=== PATIENT | male | born 2000 | race African-American/Black ===

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

== ENCOUNTER 2021-01-12 08:54 | Emergency (ER) | payer OTHER ==
[2021-01-12] MEDS ORDERED: KETOROLAC 30 MG/ML INJ ONE (10:24)
--- NOTE | 2021-01-12 12:40 | ER ---
Nurse's Notes [facility] Name: Antelmo Vaughn Age: 20 yrs Sex: Male : 2000 Arrival Date: 01/12/2021 Time: 09:00 Bed 17 Private MD: Diagnosis: SARS-associated coronavirus as the cause of diseases classified elsewhere Presentation: 01/12 09:13 Chief complaint: Patient states: headache, nausea, chills, and slight cough. aa5 Coronavirus screen: chills, cough unrelated to allergies, headache. Ebola Screen: Patient negative for fever greater than or equal to 101.5 degrees Fahrenheit, and additional compatible Ebola Virus Disease symptoms. Initial Sepsis Screen: Does the patient meet any 2 criteria? No. Patient's initial sepsis screen is negative. Does the patient have a suspected source of infection? No. Patient's initial sepsis screen is negative. Risk Assessment: Do you want to hurt yourself or someone else? Patient reports no desire to harm self or others. Onset of symptoms was December 2020. 09:13 Acuity: RICKEY 4 aa5 09:13 Method Of Arrival: Ambulatory aa5 Historical: - Allergies: 09:13 No Known Allergies; aa5 - PMHx: 09:13 None; aa5 - PSHx: 09:13 Cholecystectomy; aa5 - Immunization history:: Client reports having NOT received the Covid vaccine. - Social history:: Smoking status: Patient denies any tobacco usage or history of. Screenin:30 Abuse screen: Denies threats or abuse. Denies injuries from another. Nutritional ch5 screening: No deficits noted. Tuberculosis screening: No symptoms or risk factors identified. Fall Risk None identified. Assessment: 11:30 Reassessment: No changes from previously documented assessment. Pain:. ch5 Vital Signs: 09:13 BP 122 / 70; Pulse 80; Resp 18 S; Temp 97.7(TE); Pulse Ox 97% on R/A; Weight 158.76 kg aa5 (R); Height 6 ft. 5 in. (195.58 cm) (R); 13:03 BP 132 / 82; Pulse 80; Resp 18; Pulse Ox 98% ; ch5 09:13 Body Mass Index 41.50 (158.76 kg, 195.58 cm) aa5 ED Course: 09:00 Patient arrived in ED. mr 09:13 Arm band placed on. aa5 09:15 Triage completed. aa5 :25 Jacob Hurtado PA is PHCP. jr8 :25 Cydney Weiner MD is Attending Physician. jr 09:30 Vishnu Alaniz, RN is Primary Nurse. ch5 10:13 Flu Sent. ch5 10:13 COVID-19 (Coronavirus) Document "Date of Onset" if Symptomatic Sent. ch5 11:30 No provider procedures requiring assistance completed. Patient did not have IV access ch5 during this emergency room visit. Administered Medications: 10:12 Drug: Ketorolac 30 mg Route: IM; Site: right deltoid; ch5 Outcome: 11:30 Discharged to home ch5 11:30 Condition: stable 11:30 Discharge instructions given to patient, Prescriptions given X 1. 12:39 Discharge ordered by . jr8 13:05 Patient left the ED. 5 Signatures: PalacioZelda cabrera mr SorensenConnie RN RN 5 Jacob Hurtado PA PA jr Vishnu Alaniz, CHOCO RN 5 Corrections: (The following items were deleted from the chart) 09:13 09:13 PSHx: None; 5 aa5
--- NOTE | 2021-01-12 12:40 | EDPHYS ---
Physician Documentation [facility] Name: Antelmo Vaughn Age: 20 yrs Sex: Male : 2000 Arrival Date: 01/12/2021 Time: 09:00 Bed 17 Private MD: ED Physician Cydney Weiner HPI: 01/12 10:36 This 20 yrs old Black Male presents to ER via Ambulatory with complaints of Headache, jr8 Nausea. 10:36 The patient has not experienced similar symptoms in the past. The patient has not jr8 recently seen a physician. This is a 20-year-old male patient that came in with couple day history of headache, cough, nausea, myalgias. Denies fevers or recent sick contacts that he knows of. Historical: - Allergies: 09:13 No Known Allergies; aa5 - PMHx: 09:13 None; aa5 - PSHx: 09:13 Cholecystectomy; aa5 - Immunization history:: Client reports having NOT received the Covid vaccine. - Social history:: Smoking status: Patient denies any tobacco usage or history of. ROS: 10:36 Eyes: Negative for injury, pain, redness, and discharge, ENT: Negative for injury, jr8 pain, and discharge, Neck: Negative for injury, pain, and swelling, Cardiovascular: Negative for chest pain, palpitations, and edema, Back: Negative for injury and pain, MS/Extremity: Negative for injury and deformity, Skin: Negative for injury, rash, and discoloration. 10:36 Constitutional: Positive for body aches, chills. 10:36 Respiratory: Positive for cough, Negative for shortness of breath, sputum production, wheezing. 10:36 Abdomen/GI: Positive for nausea, Negative for abdominal pain, vomiting, diarrhea. 10:36 Neuro: Positive for headache. Exam: 10:36 Constitutional: This is a well developed, well nourished patient who is awake, alert, jr8 and in no acute distress. Eyes: Pupils equal round and reactive to light, extra-ocular motions intact. Lids and lashes normal. Conjunctiva and sclera are non-icteric and not injected. Cornea within normal limits. Periorbital areas with no swelling, redness, or edema. ENT: Nares patent. No nasal discharge, no septal abnormalities noted. Tympanic membranes are normal and external auditory canals are clear. Oropharynx with no redness, swelling, or masses, exudates, or evidence of obstruction, uvula midline. Mucous membranes moist. Neck: Trachea midline, no thyromegaly or masses palpated, and no cervical lymphadenopathy. Supple, full range of motion without nuchal rigidity, or vertebral point tenderness. No Meningismus. Cardiovascular: Regular rate and rhythm with a normal S1 and S2. No gallops, murmurs, or rubs. Normal PMI, no JVD. No pulse deficits. Respiratory: Lungs have equal breath sounds bilaterally, clear to auscultation and percussion. No rales, rhonchi or wheezes noted. No increased work of breathing, no retractions or nasal flaring. Abdomen/GI: Soft, non-tender, with normal bowel sounds. No distension or tympany. No guarding or rebound. No evidence of tenderness throughout. Back: No spinal tenderness. No costovertebral tenderness. Full range of motion. Skin: Warm, dry with normal turgor. Normal color with no rashes, no lesions, and no evidence of cellulitis. MS/ Extremity: Pulses equal, no cyanosis. Neurovascular intact. Full, normal range of motion. Neuro: Awake and alert, GCS 15, oriented to person, place, time, and situation. Cranial nerves II-XII grossly intact. Motor strength 5/5 in all extremities. Sensory grossly intact. Vital Signs: 09:13 BP 122 / 70; Pulse 80; Resp 18 S; Temp 97.7(TE); Pulse Ox 97% on R/A; Weight 158.76 kg aa5 (R); Height 6 ft. 5 in. (195.58 cm) (R); 13:03 BP 132 / 82; Pulse 80; Resp 18; Pulse Ox 98% ; ch5 09:13 Body Mass Index 41.50 (158.76 kg, 195.58 cm) aa5 MDM: 09:25 Patient medically screened. [facility] 12:38 Data reviewed: vital signs, nurses notes, lab test result(s), and as a result, I will [facility] discharge patient. Data interpreted: Pulse oximetry: on room air is 97 %. Interpretation: normal. Counseling: I had a detailed discussion with the patient and/or guardian regarding: the historical points, exam findings, and any diagnostic results supporting the discharge/admit diagnosis, lab results, the need for outpatient follow up, a family practitioner, to return to the emergency department if symptoms worsen or persist or if there are any questions or concerns that arise at home. ED course: Discussed with patient that he is Covid positive. Overall patient is doing very well. Hemodynamically stable and afebrile at this time. Will send home on nausea medicine. Treat symptomatically otherwise with [id number] medicines and to watch his respiratory drive and for increased shortness of breath. If any of that were to occur to come back for further evaluation. Patient understood and good with plan at this time.. 01/12 09:48 Order name: COVID-19 (Coronavirus) Document "Date of Onset" if Symptomatic jr8 01/12 09:48 Order name: Flu jr8 01/12 09:49 Order name: Influenza Screen (A ; Complete Time: 10:59 EDMS 01/12 11:27 Order name: SARS-COV-2 RT PCR; Complete Time: 12:40 EDMS Administered Medications: 10:12 Drug: Ketorolac 30 mg Route: IM; Site: right deltoid; ch5 Disposition Summary: 01/12/21 12:39 Discharge Ordered Location: Home jr8 Problem: new jr8 Symptoms: have improved jr8 Condition: Stable jr8 Diagnosis - SARS-associated coronavirus as the cause of diseases classified elsewhere jr8 Followup: jr8 - With: Private Physician - When: 7 - 10 days - Reason: Recheck today's complaints, Continuance of care, Re-evaluation by your physician Discharge Instructions: - Discharge Summary Sheet jr8 - COVID-19 jr8 Forms: - Medication Reconciliation Form jr8 - Thank You Letter jr8 - Antibiotic Education jr8 - Prescription Opioid Use jr8 Prescriptions: - Zofran 4 mg Oral Tablet - take 1 tablet by ORAL route every 12 hours As needed; 20 tablet; Refills: 0, jr8 Product Selection Permitted Addendum: 01/13/2021 14:20 Co-signature as Attending Physician, Cydney Weiner MD I agree with the assessment and s p3 plan of care. Signatures: Dispatcher [employer] EDMS Connie Sorensen RN RN aa5 Jacob Hurtado PA PA jr8 Cydney Weiner MD MD sp3 Vishnu Alaniz RN RN ch5 Corrections: (The following items were deleted from the chart) 01/12 09:13 09:13 PSHx: None; aa5 aa5 11 09:49 CORONAVIRUS ordered. EDMS EDMS
[2021-01-12 13:24] VITALS: TEMP 97.7
[2021-01-12 13:25] VITALS: BP 132/82; O2SAT 98
== END 2021-01-12 13:05 | disposition home or self-care (01) ==
LOC: ER 08:54
DX: U07.1 COVID-19 (principal)
CPT/HCPCS: 87804 ×2; 96372; 99283; U0003

== ENCOUNTER 2021-01-17 18:51 | Emergency (ER) | payer OTHER ==
[2021-01-17 19:36] LABS: Absolute Lymphocytes (CBC) 0.9 K/uL (0.7-4.9); Basophils % 0.5 % (0-1.3); Hematocrit 44.4 % (39.6-49.0); MPV 7.8 fL (7.6-11.3); RBC Red Blood Cell Count 5.23 M/uL (4.33-5.43)
[2021-01-17] MEDS ORDERED: ACETAMINOPHEN 500 MG TAB ONE (19:40)
[2021-01-17] MEDS ORDERED: NA CHLORIDE 0.9% 1,000 ML ONE (19:41)
[2021-01-17] MEDS ORDERED: ONDANSETRON 4 MG/2 ML VIAL ONE (19:41)
--- NOTE | 2021-01-17 19:48 | RAD REPORT ---
EXAM DESCRIPTION: RAD - Chest Single View - 01/17/2021 7:17 pm CLINICAL HISTORY: Cough;Chest pain;Dyspnea COMPARISON: CHEST PA AND LAT 2 VIEW dated 10/02/2013; CHEST PA AND LAT 2 VIEW dated 2000 FINDINGS: Lines: None. Lungs: Mild patchy bilateral airspace disease. Pleural: No significant pleural effusions or pneumothorax. Cardiac: Cardiomegaly Bones: No acute fractures. Other: IMPRESSION: Mild patchy bilateral airspace disease may reflect multifocal pneumonia.
[2021-01-17 19:49] LABS: Protime INR 1.33
[2021-01-17 20:37] LABS: ALT/SGPT 49 U/L (12-78); AST/SGOT 53 U/L (15-37); Albumin 3.2 g/dL (3.4-5.0); Alkaline Phosphatase 58 U/L (45-117); BUN Blood Urea Nitrogen 9 mg/dL (7-18); Bicarbonate 26 mmol/L (21-32); Bilirubin Direct 0.1 mg/dL (0-0.2); Bilirubin Total 0.4 mg/dL (0.2-1.0); C-Reactive Protein 9.97 mg/L (<3.00); Glucose Level 131 mg/dL (74-106); Lipase 16 U/L (73-393); Potassium 3.4 mmol/L (3.5-5.1); Protein, Total 7.7 g/dL (6.4-8.2); Sodium Level 136 mmol/L (136-145); Troponin (Emerg Dept Use Only) < 0.02 ng/mL (0.0-0.045)
--- NOTE | 2021-01-17 20:46 | EDPHYS ---
Physician Documentation [facility] Name: Antelmo Vaughn Age: 20 yrs Sex: Male : 2000 Arrival Date: 01/17/2021 Time: 18:52 Bed 24 Private MD: ED Physician Akila Tay HPI: 01/17 19:45 This 20 yrs old Black Male presents to ER via EMS with complaints of covid +, shortness kb of breath. 19:45 The patient or guardian reports cough, that is intermittent, described as moderate, kb difficulty breathing. Onset: The symptoms/episode began/occurred 8 day(s) ago. Severity of symptoms: At their worst the symptoms were moderate, in the emergency department the symptoms are unchanged. Modifying factors: The symptoms are alleviated by nothing, the symptoms are aggravated by nothing. Associated signs and symptoms: Pertinent positives: fever, nausea, vomiting. The patient has not experienced similar symptoms in the past. The patient has not recently seen a physician. Historical: - Allergies: 18:59 No Known Allergies; ch5 - Immunization history:: Adult Immunizations unknown, Client reports having NOT received the Covid vaccine. - Social history:: Smoking status: Patient denies any tobacco usage or history of. ROS: 19:43 Cardiovascular: Negative for chest pain, palpitations, and edema. kb 19:43 Constitutional: Positive for body aches, chills, fatigue, fever, malaise. 19:43 Respiratory: Positive for cough, shortness of breath, Negative for 19:43 Abdomen/GI: Positive for nausea and vomiting, Negative for abdominal pain, diarrhea. 19:43 All other systems are negative. Exam: 19:43 Constitutional: This is a well developed, well nourished patient who is awake, alert, kb and in no acute distress. Head/Face: Normocephalic, atraumatic. ENT: Moist Mucous membranes Cardiovascular: Regular rate and rhythm with a normal S1 and S2. No gallops, murmurs, or rubs. No pulse deficits. Respiratory: Respirations even and unlabored. No increased work of breathing, no retractions or nasal flaring. Abdomen/GI: Soft, non-tender. No distention Skin: Warm, dry with normal turgor. Normal color. MS/ Extremity: Pulses equal, no cyanosis. Neurovascular intact. Full, normal range of motion. Neuro: Awake and alert, GCS 15, oriented to person, place, time, and situation. Moves all extremities. Normal gait. Psych: Awake, alert, with orientation to person, place and time. Behavior, mood, and affect are within normal limits. 19:47 ECG was reviewed by the Attending Physician. kb Vital Signs: 18:57 BP 130 / 70; Pulse 104; Resp 20; Temp 103.5; Pulse Ox 93% ; Weight 158.76 kg; Height 6 ch5 ft. 5 in. (195.58 cm); 19:02 BP 130 / 74; Pulse 95; Resp 20; Temp 103.5; Pulse Ox 96% ; ch5 20:00 BP 119 / 71; Pulse 92; Resp 20 S; Temp 100.4(O); Pulse Ox 92% on R/A; Pain 2/10; sj1 18:57 Body Mass Index 41.50 (158.76 kg, 195.58 cm) ch5 MDM: 18:53 Patient medically screened. kb 19:43 Data reviewed: vital signs, nurses notes. Data interpreted: Pulse oximetry: on room air kb is 96 %. Interpretation: normal. 19:46 ED course: Pt reports he was diagnosed with covid 8 days ago. Reports cough, kb congestion, fever, dyspnea, nausea and vomiting that got worse today. 20:45 Counseling: I had a detailed discussion with the patient and/or guardian regarding: the kb historical points, exam findings, and any diagnostic results supporting the discharge/admit diagnosis, lab results, radiology results, the need for outpatient follow up, a family practitioner, to return to the emergency department if symptoms worsen or persist or if there are any questions or concerns that arise at home. 01/17 19:02 Order name: BMP kb 01/17 19:02 Order name: C-Reactive Protein kb 01/17 19:02 Order name: CBC with Diff; Complete Time: 19:55 kb 01/17 19: Order name: D-Dimer; Complete Time: 19:59 kb 01/17 19:02 Order name: Ferritin kb 01/17 19:02 Order name: LFT's kb 01/17 19: Order name: Lactate; Complete Time: 20:04 kb 01/17 19:02 Order name: Lipase kb 01/17 19:02 Order name: PT-INR; Complete Time: 19:59 kb 01/17 19:02 Order name: Procalcitonin; Complete Time: 20:14 kb 01/17 19:02 Order name: Ptt, Activated; Complete Time: 19:59 kb 01/17 19:02 Order name: Troponin (emerg Dept Use Only) kb 01/17 19:02 Order name: CXR XRAY; Complete Time: 19:55 kb 01/17 19:02 Order name: EKG; Complete Time: 19:03 kb 01/17 19:02 Order name: Cardiac monitoring; Complete Time: 19:30 kb 01/17 19:02 Order name: Droplet/Contact Precautions; Complete Time: 19:30 kb 01/17 19:02 Order name: EKG - Nurse/Tech; Complete Time: 19:46 kb 01/17 19:02 Order name: IV Start; Complete Time: 19:30 kb 01/17 19:02 Order name: Labs collected and sent; Complete Time: 19:30 kb 01/17 19:02 Order name: O2 Per Protocol; Complete Time: 19:30 kb 01/17 19:02 Order name: O2 Sat Monitoring; Complete Time: 19:30 kb 01/17 20:15 Order name: PO challenge; Complete Time: 20:40 kb EC:47 Rate is 92 beats/min. Rhythm is regular. QRS [place] is Normal. [place] interval is normal at kb 144 msec. QRS interval is normal at 94 msec. QT interval is normal at 334 msec. Administered Medications: 19:30 Drug: NS 0.9% 1000 ml Route: IV; Rate: 1000 ml; Site: right hand; sj1 20:16 Follow up: IV Intake: 1000ml sj1 20:16 Follow up: IV Status: Completed infusion sj1 19:30 Drug: Zofran (Ondansetron) 4 mg Route: IVP; Site: right hand; sj1 20:15 Follow up: Response: No adverse reaction sj1 19:30 Drug: Tylenol 1000 mg Route: PO; sj1 20:15 Follow up: Response: No adverse reaction; Nausea is decreased sj1 Disposition Summary: 01/17/21 20:45 Discharge Ordered Location: Home kb Condition: Stable kb Diagnosis - Coronavirus infection, unspecified kb Followup: kb - With: Emergency Department - When: As needed - Reason: Worsening of condition Followup: kb - With: Private Physician - When: 2 - 3 days - Reason: Recheck today's complaints, Continuance of care, Re-evaluation by your physician Discharge Instructions: - Discharge Summary Sheet kb - COVID-19 kb - COVID-19 Frequently Asked Questions kb - 10 Things You Can Do to Manage Your COVID-19 Symptoms at Home - [facility] kb Forms: - Medication Reconciliation Form kb - Thank You Letter kb - Antibiotic Education kb - Prescription Opioid Use kb Prescriptions: - Zofran 4 mg Oral Tablet - take 1 tablet by ORAL route every 6 hours As needed; 20 tablet; Refills: 0, kb Product Selection Permitted Addendum: 01/26/2021 22:56 Co-signature as Attending Physician, Akila Tay MD. m a2 Signatures: Dispatcher [employer] EDMS Lakeisha Rao, TERENCE-C [employer] TE[employer]ER-Akila Gonzales MD MD ma2 Vishnu Alaniz RN RN ch5 Mireille Bonds RN RN sj1 Corrections: (The following items were deleted from the chart) 01/17 19:01 18:59 PSHx: Cholecystectomy; ch5 ch5
--- NOTE | 2021-01-17 20:46 | ER ---
Nurse's Notes [facility] Name: Antelmo Vaughn Age: 20 yrs Sex: Male : 2000 Arrival Date: 01/17/2021 Time: 18:52 Bed 24 Private MD: Diagnosis: Coronavirus infection, unspecified Presentation: 01/17 18:57 Chief complaint: EMS states: N/V, cough and SOB since being diagnosed with COVID 7 days ch5 ago. Coronavirus screen: Vaccine status: Patient reports being unvaccinated. Client denies travel out of the [place] in the last 14 days. Ebola Screen: Patient negative for fever greater than or equal to 101.5 degrees Fahrenheit, and additional compatible Ebola Virus Disease symptoms Patient denies exposure to infectious person. Patient denies travel to an Ebola-affected area in the 21 days before illness onset. Initial Sepsis Screen: Does the patient meet any 2 criteria? Temp <36.0*C (96.8*F)) or > 38.3*C (100.9*F). HR > 90 bpm. Does the patient have a suspected source of infection? Yes: Productive cough/pneumonia. Risk Assessment: Do you want to hurt yourself or someone else? Patient reports no desire to harm self or others. 18:57 Method Of Arrival: EMS: [place] [address] 18:57 Acuity: RICKEY 3 5 20:49 Onset of symptoms was January 10, 2021. sj1 Triage Assessment: 18:59 General: Appears in no apparent distress. Behavior is cooperative. Pain: Denies pain. [facility] Historical: - Allergies: 18:59 No Known Allergies; [facility] - Immunization history:: Adult Immunizations unknown, Client reports having NOT received the Covid vaccine. - Social history:: Smoking status: Patient denies any tobacco usage or history of. Screenin:01 Abuse screen: Denies threats or abuse. Denies injuries from another. Abuse screen: [facility] Denies threats or abuse. Denies injuries from another. Nutritional screening: No deficits noted. Tuberculosis screening: No symptoms or risk factors identified. Fall Risk None identified. Assessment: 19:01 Reassessment: No changes from previously documented assessment. [facility] 19:02 Respiratory: Breath sounds are diminished bilaterally. jt3 19:02 General: Appears in no apparent distress. jt3 19:03 Reassessment: Lungs diminished bilaterally. Alert and oriented x4. Airway patent on jt3 arrival. Cough present. . 20:45 Neuro: Level of Consciousness is awake, alert, obeys commands, Oriented to person, sj1 place, time, situation. Cardiovascular: Rhythm is sinus rhythm. GI: Reports nausea. : No signs and/or symptoms were reported regarding the genitourinary system. EENT: No signs and/or symptoms were reported regarding the EENT system. Derm: No signs and/or symptoms reported regarding the dermatologic system. Musculoskeletal: Reports gen bodyaches. Vital Signs: 18:57 BP 130 / 70; Pulse 104; Resp 20; Temp 103.5; Pulse Ox 93% ; Weight 158.76 kg; Height 6 ch5 ft. 5 in. (195.58 cm); 19:02 BP 130 / 74; Pulse 95; Resp 20; Temp 103.5; Pulse Ox 96% ; ch5 20:00 BP 119 / 71; Pulse 92; Resp 20 S; Temp 100.4(O); Pulse Ox 92% on R/A; Pain 2/10; sj1 18:57 Body Mass Index 41.50 (158.76 kg, 195.58 cm) 5 ED Course: 18:52 Patient arrived in ED. 5 18:53 Lakeisha Rao FNP-C is [facility]. kb 18:53 Akila Tay MD is Attending Physician. kb 18:59 Triage completed. 5 18:59 Arm band placed on. ch5 19:01 Patient has correct armband on for positive identification. Bed in low position. Call [facility] light in reach. 19:01 No provider procedures requiring assistance completed. ch5 19:02 No apparent distress. jt3 19:12 CXR XRAY Sent. sj1 19:16 CXR XRAY In Process Unspecified. EDMS 20:49 IV discontinued, intact, bleeding controlled, No redness/swelling at site. sj1 Administered Medications: 19:30 Drug: NS 0.9% 1000 ml Route: IV; Rate: 1000 ml; Site: right hand; sj1 20:16 Follow up: IV Intake: 1000ml sj1 20:16 Follow up: IV Status: Completed infusion sj1 19:30 Drug: Zofran (Ondansetron) 4 mg Route: IVP; Site: right hand; sj1 20:15 Follow up: Response: No adverse reaction sj1 19:30 Drug: Tylenol 1000 mg Route: PO; sj1 20:15 Follow up: Response: No adverse reaction; Nausea is decreased sj1 Intake: 20:16 IV: 1000ml; Total: 1000ml. sj1 Outcome: 20:45 Discharge ordered by . riky 20:49 Discharged to home ambulatory. sj1 20:49 Condition: stable 20:49 Discharge instructions given to patient, Instructed on discharge instructions, follow up and referral plans. medication usage, Demonstrated understanding of instructions, follow-up care, medications, Prescriptions given X 1. 21:03 Patient left the ED. sj1 Signatures: Dispatcher [employer] EDMS Lakeisha Rao, SALT MACHINE OPERATOR-C SALT MACHINE OPERATOR-Vishnu Lawler, RN RN ch5 Mireille Bonds RN RN sj1 Collin Floyd RN RN jt3 Corrections: (The following items were deleted from the chart) 19:01 18:59 PSHx: Cholecystectomy; ch5 5
[2021-01-17 21:11] VITALS: BP 119/71; TEMP 100.4; O2SAT 92
[2021-01-17 21:17] LABS: Ferritin 237.8 ng/mL (26-388)
== END 2021-01-17 21:03 | disposition home or self-care (01) ==
LOC: ER 18:51
DX: U07.1 COVID-19 (principal)
CPT/HCPCS: 96361; 93005; 85025; 80048; 36415; 85610; 85379; 80076; 83605; 85730; 84484; 82728; 83690; 84145; 86140; 71045; 96374; 99284; J7030; J2405

== ENCOUNTER 2021-09-06 07:42 | Emergency (ER) | payer OTHER ==
--- OUTSIDE RECORDS SUMMARY | 2021-09-06 07:48 | XMS REPORT | Continuity of Care Document ---
:2000 Author Organization [facility] t Address [address] [place] [address] Care Team Providers Name Role Phone LIDIA MURILLO Attending Clinician Unavailable SHELTON TIDWELL Attending Clinician Unavailable Giuseppe Raza MD Attending Clinician Doctor Unassigned, Name Attending Clinician Unavailable Coy Manjarrez MD Attending Clinician LIDIA MURILLO Admitting Clinician Unavailable SHELTON TIDWELL Admitting Clinician Unavailable MADELINE LOCKETT Admitting Clinician Unavailable Payers Payer Name Policy Type Policy Number Effective Date Expiration Date S [place] [facility] [id number] 2016 HEALTH 00:00:00 MEDICAID [facility] ST[facility] [id number] Problems Condition Condition Condition Status Onset Resolution Last Treating Co mments Source Name Details Category Date Date Treatment Clinician Date Left ankle Left ankle Disease Active 2017-0 U nivers pain pain 1-10 ity of 00:00: [place] [address] Medical Branch Allergies, Adverse Reactions, Alerts Allergy Allergy Status Severity Reaction(s) Onset Inactive Treating Comm ents Source Name Type Date Date Clinician NO KNOWN Drug Active Univers ALLERGIE Class ity of [facility] [place] [facility] NO KNOWN Allergy Active [facility] Social History Social Habit Start Date Stop Date Quantity Comments Source Exposure to Not sure University of SARS-CoV-2 [place] [facility] (event) Branch History SDOH [facility] ge of Alcohol Std Medicine Drinks History [facility] ge of Alcohol Binge Medicine Tobacco use and 2020-02-15 2020-02-15 Never used [facility] llege of exposure 00:00:00 00:00:00 Medicine Alcohol intake 2020-02-15 2020-02-15 Lifetime [facility] Col lege of 00:00:00 00:00:00 non-drinker Medicine (finding) History [facility] 2020-02-15 2020-02-15 1 [facility] ge of Alcohol Frequency 00:00:00 00:00:00 Medicin e Sex Assigned At 2000 2000 [facility] llege of 00:00:00 00:00:00 Medicine Smoking Status Start Date Stop Date Source Never smoker [facility] o f Medicine Medications Ordered Filled Start Stop Current Ordering Indication Dosage Frequency Signature Comments Components Source Medication Medication Date Date Medication? Clinician (SIG) Name Name ibuprofen 2019-03 Yes 600mg Take 1 [facility] (MOTRIN) 1-20 Tablet by Colleg e 600 MG 00:00: mouth of tablet 00 every 6 Medicin hours as e needed for Pain. iohexol 2020- No 120mL 120 mL, Unive rs (OMNIPAQUE 10-09 07-15 Intravenou it y of 350 09:00: 09:00 s, ONCE, 1 [place] BULK-150 00 :00 dose, Wed Medica l mL) 10/10/19 at [place] injection 0400, 120 mL Routine maalox:diph 2019- 2020- No 15mL 15 mL, Uni vers enhydrAMINE 10-09 07-15 Oral, ity of :lidocaine 09:00: 08:02 ONCE, 1 [place] as 2 % viscous 00 :00 dose, Wed Med ical 1:1:1 10/10/19 at [place] (FIRST-MOUT 0400, HWASH BLM) Routine oral suspension 15 mL ondansetron Yes [id number] 4mg Take 1 Univers 4 mg 6-15 tablet by ity of disintegrat 00:00: mouth [place] ing tablet 00 every 4 Medica l (four) Branch hours as needed for Nausea and Vomiting (N/V). dicyclomine Yes [id number] 10mg Take 1 Univers (BENTYL) 10 6-15 capsule by it y of mg capsule 00:00[place] (four) Medical times Branch daily. docusate 2019-0 Yes [id number] 250mg Take 1 Un rosalia sodium 250 6-15 capsule by ity of mg capsule 00:00: mouth [place] 00 daily. Medical Branch famotidine 2018-0 Yes [id number] 20mg Take 1 U nivers 20 mg 6-15 tablet by ity of tablet 00:00: mouth 2 [place] 00 (two) Medical times Branch daily. ondansetron 2018-0 Yes [id number] 4mg Take 1 Univers 4 mg 6-15 tablet by ity of disintegrat 00:00: mouth [place] ing tablet 00 every 4 Medica l (four) Branch hours as needed for Nausea and Vomiting (N/V). dicyclomine 2018- Yes [id number] 10mg Take 1 Univers (BENTYL) 10 6-15 capsule by it y of mg capsule 00:00: [place] (four) Medical times Branch daily. docusate 2018-0 Yes [id number] 250mg Take 1 Un rosalia sodium 250 6-15 capsule by ity of mg capsule 00:00: mouth [place] 00 daily. Medical Branch famotidine 0 Yes [id number] 20mg Take 1 U nivers 20 mg 6-15 tablet by ity of tablet 00:00: mouth 2 [place] 00 (two) Medical times Branch daily. ondansetron 2018-0 Yes [id number] 4mg Take 1 Univers 4 mg 6-15 tablet by ity of disintegrat 00:00: mouth [place] ing tablet 00 every 4 Medica l (four) Branch hours as needed for Nausea and Vomiting (N/V). dicyclomine 2019-0 Yes [id number] 10mg Take 1 Univers (BENTYL) 10 6-15 capsule by it y of mg capsule 00:00: [place] (four) Medical times Branch daily. docusate 2019-0 Yes [id number] 250mg Take 1 Un rosalia sodium 250 6-15 capsule by ity of mg capsule 00:00: mouth [place] 00 daily. Medical Branch famotidine 2018-0 Yes [id number] 20mg Take 1 U nivers 20 mg 6-15 tablet by ity of tablet 00:00: mouth 2 [place] 00 (two) Medical times Branch daily. ondansetron Yes [id number] 4mg Take 1 Univers 4 mg 6-15 tablet by ity of disintegrat 00:00: mouth [place] ing tablet 00 every 4 Medica l (four) Branch hours as needed for Nausea and Vomiting (N/V). dicyclomine Yes [id number] 10mg Take 1 Univers (BENTYL) 10 6-15 capsule by it y of mg capsule 00:00: mouth [place] (four) Medical times Branch daily. docusate Yes [id number] 250mg Take 1 Un rosalia sodium 250 6-15 capsule by ity of mg capsule 00:00: mouth [place] 00 daily. Medical Branch famotidine Yes [id number] 20mg Take 1 U nivers 20 mg 6-15 tablet by ity of tablet 00:00: mouth 2 [place] 00 (two) Medical times Branch daily. pantoprazol Yes TK 1 T PO U nivers e 40 mg EC 1-25 Q MORNING ity of tablet 00:00: [facility] Medical Branch pantoprazol Yes TK 1 T PO U nivers e 40 mg EC 1-25 Q MORNING ity of tablet 00:00: [facility] pantoprazol Yes TK 1 T PO U nivers e 40 mg EC 1-25 Q MORNING ity of tablet 00:00: [facility] pantoprazol Yes TK 1 T PO U nivers e 40 mg EC 1-25 Q MORNING ity of tablet 00:00: [facility] Medical Branch FOCALIN XR Yes TK ONE C Uni vers 20 mg 24 hr 1-05 PO QAM ity of capsule 00:00: [place] [facility] FOCALIN XR Yes TK ONE C Uni vers 20 mg 24 hr 1-05 PO QAM ity of capsule 00:00: [place] [facility] FOCALIN XR Yes TK ONE C Uni vers 20 mg 24 hr 1-05 PO QAM ity of capsule 00:00: [place] [facility] FOCALIN XR Yes TK ONE C Uni vers 20 mg 24 hr 1-05 PO QAM ity of capsule 00:00: [place] [facility] acetaminoph Yes 1{tbl} Take 1 Un rosalia en-codeine 1-02 tablet by ity of (TYLENOL-CO 00:00: mouth [place] DEINE #3) 00 every 6 Medical 300-30 mg (six) Branch tablet hours as needed for Pain (scale 4-6) (for cough). acetaminoph Yes 1{tbl} Take 1 Un rosalia en-codeine 1-02 tablet by ity of (TYLENOL-CO 00:00: mouth [place] DEINE #3) 00 every 6 Medical 300-30 mg (six) Branch tablet hours as needed for Pain (scale 4-6) (for cough). acetaminoph Yes 1{tbl} Take 1 Un rosalia en-codeine 1-02 tablet by ity of (TYLENOL-CO 00:00: mouth [place] DEINE #3) 00 every 6 Medical 300-30 mg (six) Branch tablet hours as needed for Pain (scale 4-6) (for cough). acetaminoph Yes 1{tbl} Take 1 Un rosalia en-codeine 1-02 tablet by ity of (TYLENOL-CO 00:00: mouth [place] DEINE #3) 00 every 6 Medical 300-30 mg (six) Branch tablet hours as needed for Pain (scale 4-6) (for cough). dexmethylph 2015-03 Yes TAKE 1/2 T Univers enidate 10 1-14 PO QAM AND ity of mg tablet 00:00: [place] 00 1 WEEK. Medical THEN 1 T Branch PO QAM AND Q NOON dexmethylph 2015-03 Yes TAKE 1/2 T Univers enidate 10 1-14 PO QAM AND ity of mg tablet 00:00: [place] 00 1 WEEK. Medical THEN 1 T Branch PO QAM AND Q NOON dexmethylph 2015-03 Yes TAKE 1/2 T Univers enidate 10 1-14 PO QAM AND ity of mg tablet 00:00: [place] 1 WEEK. Medical THEN 1 T Branch PO QAM AND Q NOON dexmethylph 2015-03 Yes TAKE 1/2 T Univers enidate 10 1-14 PO QAM AND ity of mg tablet 00:00: [place] 1 WEEK. Medical THEN 1 T Branch PO QAM AND Q NOON Vital Signs Vital Name Observation Time Observation Value Comments Source WEIGHT 2019-10-15 00:00:00 196.5 kg HEIGHT 2019-10-15 00:00:00 193 cm Systolic blood 2020-02-15 20:26:00 129 mm[Hg] [facility] pressure Medicine Diastolic blood 2020-02-15 20:26:00 80 mm[Hg] [facility] Medicine Heart rate 2020-02-15 20:26:00 65 /min [facility] ollege of Medicine Body height 2020-02-15 20:26:00 193 cm [facility] ollege of [facility] Body weight 2020-02-15 20:26:00 177.356 kg [facility] of Medicine BMI 2020-02-15 20:26:00 47.59 kg/m2 [facility] olle of [facility] WEIGHT 2019-10-15 00:00:00 196.5 kg HEIGHT 2019-10-15 00:00:00 193 cm Systolic blood 2019-10-10 10:59:00 167 mm[Hg] Univer sity of pressure [facility] [place] [facility] Diastolic blood 2019-10-10 10:59:00 93 mm[Hg] Unive rsity of pressure [facility] [place] [facility] Heart rate 2019-10-10 10:59:00 65 /min Universi ty of [facility] [place] [facility] Respiratory rate 2019-10-10 10:59:00 16 /min [facility] [place] [facility] Oxygen saturation in 2019-10-10 10:59:00 98 /min [facility] Arterial blood by [facility] Pulse oximetry Branch Body temperature 2019-10-10 07:55:00 37.22 [place] Univ ersity of [facility] Branch Body height 2019-10-10 07:55:00 193 cm Universi ty of [facility] [place] [facility] Body weight 2019-10-10 07:55:00 145.151 kg Universi ty of [place] [facility] BMI 2019-10-10 07:55:00 38.95 kg/m2 Universi ty of [facility] Branch Systolic blood 2019-10-10 10:59:00 167 mm[Hg] Univer sity of pressure [facility] Branch Diastolic blood 2019-10-10 10:59:00 93 mm[Hg] Unive rsity of pressure [facility] [place] [facility] Heart rate 2019-10-10 10:59:00 65 /min Universi ty of [facility] [place] [facility] Respiratory rate 2019-10-10 10:59:00 16 /min [facility] Oxygen saturation in 2019-10-10 10:59:00 98 /min [facility] Arterial blood by [facility] Pulse oximetry Branch Body temperature 2019-10-10 07:55:00 37.22 Heidy [facility] Body height 2019-10-10 07:55:00 193 cm [facility] Body weight 2019-10-10 07:55:00 145.151 kg [facility] BMI 2019-10-10 07:55:00 38.95 kg/m2 [facility] Procedures Procedure Date / Time Performing Clinician Source Performed AUTHORIZATION FOR 2019-10-11 05:01:00 Doctor Unassigned, No [facility] Medical Branch US GALL BLADDER 2019-10-10 10:38:35 Gaurang Manjarrez [facility] CT ABDOMEN PELVIS W 2019-10-10 08:57:12 Gaurang Manjarrez [facility] LIPASE 2019-10-10 08:02:00 Gaurang Manjarrez [facility] COMP. METABOLIC PANEL 2019-10-10 08:02:00 Gaurang Manjarrez [facility] ([id number]) [facility] CBC WITH DIFFERENTIAL 2019-10-10 08:02:00 Gaurang Manjarrez [facility] URINALYSIS 2019-10-10 08:02:00 Gaurang Manjarrez [facility] NOTICE OF PRIVACY 2019-10-10 07:46:47 Doctor Unassigned, No Univ [facility] PRACTICES Name Medical [place] CONSENT/REFUSAL FOR 2019-10-10 07:45:08 Doctor Unassigned, No [facility] AUTHORIZATION FOR 2018-09-11 05:01:00 Doctor Unassigned, No [facility] RELEASE OF [facility] Name Medical Branch Plan of Care Planned Activity Planned Date Details Comments Source Future Scheduled Test HPV VACCINE (1 - Male [facility] 2-dose series) [code Medicin e = HPV VACCINE (1 - Male 2-dose series)] Future Scheduled Test TETANUS SHOT (ADULT) [facility] [code = TETANUS SHOT Medicin e (ADULT)] Future Scheduled Test HEPATITIS C SCREENING [facility] [code = HEPATITIS C Medicine SCREENING] Future Scheduled Test HIV SCREENING [code = [facility] of HIV SCREENING] Medicine Future Scheduled Test FLU VACCINE > 6 [facility] of MONTHS [code = FLU Medicine VACCINE > 6 MONTHS] Encounters Start End Encounter Admission Attending Care Care Encounter Source Date/Time Date/Time Type Type Clinicians Facility Department ID 2021-01-23 Emergency [facility] [id number] [facility] 06:47:30 ity of [facility] 2020-12-31 Inpatient OTCUAUHTEMOCAN, [facility] Surgery [id number] [facility] 00:26:12 MOHAMED 2019-10-15 Inpatient UR NALTEDDY, [facility] Gastro [id number] SLE 19:23:00 RAD 2020-02-15 2020-02-15 Office OLGA Raza [id number] [facility] 14:20:00 14:35:00 Visit Joelle AMBULATOR [id number] [facility] [id number] [facility] 815 e 2019-10-11 2019-10-11 Orders Doctor SAGAR [id number] Univers 00:00:00 00:00:00 Only Unassigned, CIARA [id number] ity of [place] [facility] [id number] [place] [phone] [facility] 009 Branch 2019-10-10 2019-10-10 Emergency [facility] [id number] [facility] 02:47:36 06:06:00 Gaurang Lasstier [id number] i ty of [place] [id number] [facility] [id number] [facility] 084 Branch 2019-10-10 2019-10-10 Emergency [facility] [id number] 02:47:36 06:06:00 Gaurang Lassiter [id number] [place] [id number] [place] [id number] 2019-10-10 2019-10-10 Orders Doctor KEITH [id number] Univers 00:00:00 00:00:00 Only Unassigned, CIARA [id number] ity of [place] [facility] [id number] [place] [id number] [place] [address] Branch 2019-10-10 2019-10-10 Orders Doctor SAGAR [id number] 00:00:00 00:00:00 Only Unassigned, CIARA [id number] [place] [facility] [id number] [id number] 2018-09-11 2018-09-11 Orders Doctor SAGAR [id number] Univers 00:00:00 00:00:00 Only Unassigned, CIARA [id number] ity of [place] [facility] [id number] [place] [phone] [place] [address] Branch 2018-09-11 2018-09-11 Orders Doctor SAGAR [id number] 00:00:00 00:00:00 Only Unassigned, CIARA [id number] [place] [facility] [id number] [id number] [id number] Results Test Description Test Time Test Comments Results Result Comments Source AFB CULTURE + SMEAR (NON-SPUTUM) 2019-12-04 14:45:00 Test Item Value Reference Range Interpretation Comme nts CULTURE (BEAKER) (test code = 1095) No acid-fast bacilli isolated i n 42 days AFB SMEAR (BEAKER) (test code = 994) No acid fast bacilli seen AFB CULTURE + SMEAR (NON-SPUTUM)2019-12-04 14:45:00 Test Item Value Reference Range Interpretation Comments CULTURE (BEAKER) (test No acid-fast bacilli code = 1095) isolated in 42 days AFB SMEAR (BEAKER) No acid fast bacilli (test code = 994) seen FUNGUS CULTURE + [id number] 08:30:00 Test Item Value Reference Range Interpretation Comments CULTURE (BEAKER) (test No fungus isolated in code = 1095) 28 days FUNGUS SMEAR (BEAKER) No fungi seen (test code = 1406) FUNGUS CULTURE + [id number] 08:30:00 Test Item Value Reference Range Interpretation Comments CULTURE (BEAKER) (test No fungus isolated in code = 1095) 28 days FUNGUS SMEAR (BEAKER) No fungi seen (test code = 1406) SARS-COV2/RT-PCR ([facility])2019-10-30 09:07:00 Test Item Value Reference Range Interpretation Comments SARS-COV2/RT-PCR (test Negative Not Detected, Negative, code = 9764149) See external report for linked test SARS-COV-2 PERFORMING LAB [facility] (test code = 3514738) Negative result for this test determines that SARS-CoV-2 RNA was not present in the specimen above the Limit of Detection (LOD). However, Negative results do not preclude SARS-CoV-2 infection and should not be used as the sole basis for treatment or patient management decisions. Negative results mustbe combined with clinical observations, patient history, and epidemiological information. A false negative result may occur if a specimen is improperly collected, transported or handled. A false negative result should be considered if patient's recent exposures or clinical presentation indicate that COVID-19 (SARS-CoV-2) is likely and diagnostic tests for other causes of illness are negative. Re-testing should be considered in cases of suspected false negatives.The limit of detection for this assay is 800 copies/mL.This SARS CoV-2 test is a real-time RT-PCR test intended for the qualitative detection of nucleic acid from SARS-CoV-2 in a nasopharyngeal swab specimen collected from individuals susp ected of COVID-19 by their healthcare provider.This test has not been Food and Drug Administration (FDA) cleared or approved. This is a modified version of an approved Emergency Use Authorization (EUA) and is in the process of review by the FDA. Once authorized by the FDA, the issued EUA will be effective until the declaration that circumstances exist justifying the authorization of the emergency use of in vitro diagnostic tests for detection and/or diagnosis of COVID-19 is terminated under Section 564(b)(2) of the Act or the EUA is revoked under Section 564(g) of the Act.Fact Sheet for Healthcare Providers:https://www.Chatterfly.GogoCoin/sites/default/files/product/documents/Fact_Shee d_AC_Qcvruiikk_Mawx_VJXW-LvG-5.pdfFact Sheet for Healthcare Patients:https://www.Chatterfly.com/sites/default/files/product/ documents/Vidk_Knxvx_Awojdmna_Badx_YCHD-MdE-2.pdfPerforming Laboratory:[facility], [place] [address]IMFNDLB FUNCTION [id number] 06:48:00 Test Item Value Reference Range Interpretation Comments TOTAL PROTEIN (BEAKER) 6.3 gm/dL 6.0-8.3 Speci men slightly (test code = 770) hemolyzed ALBUMIN (BEAKER) (test 2.5 g/dL 3.5-5.0 L Speci men slightly code = 1145) hemolyzed BILIRUBIN TOTAL 0.6 mg/dL 0.2-1.2 Specimen sli ghtly (BEAKER) (test code = hemoly zed 377) BILIRUBIN DIRECT 0.4 mg/dL 0.1-0.5 Specimen sl ightly (BEAKER) (test code = hemoly zed 706) ALKALINE PHOSPHATASE 104 U/L 40-150 (BEAKER) (test code = 346) AST (SGOT) (BEAKER) 49 U/L 5-34 H Specimen slightly (test code = 353) hemolyzed ALT (SGPT) (BEAKER) 105 U/L 6-55 H Specimen slightly (test code = 347) hemolyzed Bonding Machine Operator ID - DEMARCO WCBC (HEMOGRAM ONLY)2019-10-30 06:39:00 Test Item Value Reference Range Interpretation Comments WHITE BLOOD CELL COUNT (BEAKER) 14.4 K/ L 3.5-10.5 H (test code = 775) RED BLOOD CELL COUNT (BEAKER) 3.31 M/ L 4.63-6.08 L (test code = 761) HEMOGLOBIN (BEAKER) (test code = 9.3 GM/DL 13.7-17.5 L 410) HEMATOCRIT (BEAKER) (test code = 29.9 % 40.1-51.0 L 411) MEAN CORPUSCULAR VOLUME (BEAKER) 90.3 fL 79.0-92.2 (test code = 753) MEAN CORPUSCULAR HEMOGLOBIN 28.1 pg 25.7-32.2 (BEAKER) (test code = 751) MEAN CORPUSCULAR HEMOGLOBIN CONC 31.1 GM/DL 32.3-36.5 L (BEAKER) (test code = 752) RED CELL DISTRIBUTION WIDTH 14.6 % 11.6-14.4 H (BEAKER) (test code = 412) PLATELET COUNT (BEAKER) (test 742 K/CU MM 150-450 H code = 756) MEAN PLATELET VOLUME (BEAKER) 8.4 fL 9.4-12.4 L (test code = 754) NUCLEATED RED BLOOD CELLS 0 /100 WBC 0-0 (BEAKER) (test code = 413) BASIC METABOLIC [id number] 08:29:00 Test Item Value Reference Range Interpretation Comments SODIUM (BEAKER) 139 meq/L 136-145 (test code = 381) POTASSIUM (BEAKER) 3.6 meq/L 3.5-5.1 (test code = 379) CHLORIDE (BEAKER) 104 meq/L 98-107 (test code = 382) CO2 (BEAKER) (test 31 meq/L 22-29 H code = 355) BLOOD UREA NITROGEN 5 mg/dL 7-21 L (BEAKER) (test code = 354) CREATININE (BEAKER) 0.61 mg/dL 0.57-1.25 (test code = 358) GLUCOSE RANDOM 102 mg/dL 70-105 (BEAKER) (test code = 652) CALCIUM (BEAKER) 7.9 mg/dL 8.4-10.2 L (test code = 697) EGFR (BEAKER) (test 206 mL/min/1.73 ESTIM ATED GFR IS code = 1092) sq m NOT ACCURATE CREATININE CLEARANCE IN PREDICTING GLOMERULAR FILTRATION RATE . ESTIMATED GFR I S NOT APPLICABLE FOR DIALYSIS PATIEN TS. Bonding Machine Operator ID - PIAYA EPATIC FUNCTION [id number] 08:20:00 Test Item Value Reference Range Interpretation Comments TOTAL PROTEIN (BEAKER) (test code = 6.2 gm/dL 6.0-8.3 770) ALBUMIN (BEAKER) (test code = 1145) 2.6 g/dL 3.5-5.0 L BILIRUBIN TOTAL (BEAKER) (test code 0.6 mg/dL 0.2-1.2 = 377) BILIRUBIN DIRECT (BEAKER) (test 0.4 mg/dL 0.1-0.5 code = 706) ALKALINE PHOSPHATASE (BEAKER) (test 103 U/L 40-150 code = 346) AST (SGOT) (BEAKER) (test code = 69 U/L 5-34 H 353) ALT (SGPT) (BEAKER) (test code = 124 U/L 6-55 H 347) Bonding Machine Operator ID - JAMAR LCBC (HEMOGRAM ONLY)2019-10-29 07:33:00 Test Item Value Reference Range Interpretation Comments WHITE BLOOD CELL COUNT (BEAKER) 16.1 K/ L 3.5-10.5 H (test code = 775) RED BLOOD CELL COUNT (BEAKER) 3.23 M/ L 4.63-6.08 L (test code = 761) HEMOGLOBIN (BEAKER) (test code = 9.1 GM/DL 13.7-17.5 L 410) HEMATOCRIT (BEAKER) (test code = 28.7 % 40.1-51.0 L 411) MEAN CORPUSCULAR VOLUME (BEAKER) 88.9 fL 79.0-92.2 (test code = 753) MEAN CORPUSCULAR HEMOGLOBIN 28.2 pg 25.7-32.2 (BEAKER) (test code = 751) MEAN CORPUSCULAR HEMOGLOBIN CONC 31.7 GM/DL 32.3-36.5 L (BEAKER) (test code = 752) RED CELL DISTRIBUTION WIDTH 14.7 % 11.6-14.4 H (BEAKER) (test code = 412) PLATELET COUNT (BEAKER) (test 694 K/CU MM 150-450 H code = 756) MEAN PLATELET VOLUME (BEAKER) 8.6 fL 9.4-12.4 L (test code = 754) NUCLEATED RED BLOOD CELLS 0 /100 WBC 0-0 (BEAKER) (test code = 413) URINALYSIS W/ REFLEX URINE [id number] 20:20:00 Test Item Value Reference Range Interpretation Comments COLOR (BEAKER) (test code = 470) Yellow CLARITY (BEAKER) (test code = 469) Hazy SPECIFIC GRAVITY UA (BEAKER) (test 1.021 1.001-1.035 code = 468) PH UA (BEAKER) (test code = 467) 7.0 5.0-8.0 PROTEIN UA (BEAKER) (test code = 20 mg/dL Negative A 464) GLUCOSE UA (BEAKER) (test code = Negative Negative 365) KETONES UA (BEAKER) (test code = Negative Negative 371) BILIRUBIN UA (BEAKER) (test code = Negative Negative 462) BLOOD UA (BEAKER) (test code = 461) Negative Negative NITRITE UA (BEAKER) (test code = Negative Negative 465) LEUKOCYTE ESTERASE UA (BEAKER) Negative Negative (test code = 466) UROBILINOGEN UA (BEAKER) (test code 3.0 mg/dL 0.2-1.0 H = 463) RBC UA (BEAKER) (test code = 519) 0 /HPF WBC UA (BEAKER) (test code = 520) 2 /HPF MUCUS (BEAKER) (test code = 1574) Rare SQUAMOUS EPITHELIAL (BEAKER) (test < /HPF code = 516) SOURCE(BEAKER) (test code = 2795) Bonding Machine Operator ID - [auto]Bonding Machine Operator ID - hankBLOOD [id number] 16:00:00 Test Item Value Reference Range Interpretation Comments CULTURE (BEAKER) (test No growth in 5 days code = 1095) RAD, CHEST, 1 VIEW, NON [id number] 14:35:00Reason for exam:->FeverShould this be performed at the bedside?->YesFINAL REPORT TECHNIQUE: Frontal view of the chest. INDICATION: Fever. COMPARISON: Chest radiograph from 10/23/2019. FINDINGS: LINES/TUBES: None. LUNGS: The previously seen left basilar opacity has decreased. PLEURA: No pneumothorax or significant pleural effusion. HEART AND MEDIASTINUM: The cardiac silhouette is normal in size. SOFT TISSUES AND BONES: Unremarkable. IMPRESSION:Left basilar opacity has decreased compared the prior examination and was likely atelectasis. Signed: Austyn Rascon [facility] Verified Date/Time: 10/28/2019 14:35:57 Reading Location: [facility] C013Y CT BodyReading Room BLOOD [id number] 13:00:00 Test Item Value Reference Range Interpretation Comments CULTURE (BEAKER) (test No growth in 5 days code = 1095) BASIC METABOLIC [id number] 07:07:00 Test Item Value Reference Range Interpretation Comments SODIUM (BEAKER) 137 meq/L 136-145 (test code = 381) POTASSIUM (BEAKER) 3.2 meq/L 3.5-5.1 L (test code = 379) CHLORIDE (BEAKER) 103 meq/L 98-107 (test code = 382) CO2 (BEAKER) (test 28 meq/L 22-29 code = 355) BLOOD UREA NITROGEN 5 mg/dL 7-21 L (BEAKER) (test code = 354) CREATININE (BEAKER) 0.60 mg/dL 0.57-1.25 (test code = 358) GLUCOSE RANDOM 124 mg/dL 70-105 H (BEAKER) (test code = 652) CALCIUM (BEAKER) 7.8 mg/dL 8.4-10.2 L (test code = 697) EGFR (BEAKER) (test 210 mL/min/1.73 ESTIM ATED GFR IS code = 1092) sq m NOT ACCURATE CREATININE CLEARANCE IN PREDICTING GLOMERULAR FILTRATION RATE . ESTIMATED GFR I S NOT APPLICABLE FOR DIALYSIS PATIEN TS. 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 ID - PIAYA LCBC (HEMOGRAM ONLY)2019-10-28 06:29:00 Test Item Value Reference Range Interpretation Comments WHITE BLOOD CELL COUNT (BEAKER) 18.3 K/ L 3.5-10.5 H (test code = 775) RED BLOOD CELL COUNT (BEAKER) 3.19 M/ L 4.63-6.08 L (test code = 761) HEMOGLOBIN (BEAKER) (test code = 9.1 GM/DL 13.7-17.5 L 410) HEMATOCRIT (BEAKER) (test code = 28.4 % 40.1-51.0 L 411) MEAN CORPUSCULAR VOLUME (BEAKER) 89.0 fL 79.0-92.2 (test code = 753) MEAN CORPUSCULAR HEMOGLOBIN 28.5 pg 25.7-32.2 (BEAKER) (test code = 751) MEAN CORPUSCULAR HEMOGLOBIN CONC 32.0 GM/DL 32.3-36.5 L (BEAKER) (test code = 752) RED CELL DISTRIBUTION WIDTH 14.8 % 11.6-14.4 H (BEAKER) (test code = 412) PLATELET COUNT (BEAKER) (test 625 K/CU MM 150-450 H code = 756) MEAN PLATELET VOLUME (BEAKER) 9.0 fL 9.4-12.4 L (test code = 754) NUCLEATED RED BLOOD CELLS 0 /100 WBC 0-0 (BEAKER) (test code = 413) HEPATIC FUNCTION [id number] 07:32:00 Test Item Value Reference Range Interpretation Comments TOTAL PROTEIN (BEAKER) (test code = 6.1 gm/dL 6.0-8.3 770) ALBUMIN (BEAKER) (test code = 1145) 2.6 g/dL 3.5-5.0 L BILIRUBIN TOTAL (BEAKER) (test code 0.7 mg/dL 0.2-1.2 = 377) BILIRUBIN DIRECT (BEAKER) (test 0.5 mg/dL 0.1-0.5 code = 706) ALKALINE PHOSPHATASE (BEAKER) (test 102 U/L 40-150 code = 346) AST (SGOT) (BEAKER) (test code = 101 U/L 5-34 H 353) ALT (SGPT) (BEAKER) (test code = 148 U/L 6-55 H 347) Bonding Machine Operator ID - PIAYA LBASIC METABOLIC [id number] 07:32:00 Test Item Value Reference Range Interpretation Comments SODIUM (BEAKER) 138 meq/L 136-145 (test code = 381) POTASSIUM (BEAKER) 3.6 meq/L 3.5-5.1 (test code = 379) CHLORIDE (BEAKER) 103 meq/L 98-107 (test code = 382) CO2 (BEAKER) (test 26 meq/L 22-29 code = 355) BLOOD UREA NITROGEN 4 mg/dL 7-21 L (BEAKER) (test code = 354) CREATININE (BEAKER) 0.62 mg/dL 0.57-1.25 (test code = 358) GLUCOSE RANDOM 103 mg/dL 70-105 (BEAKER) (test code = 652) CALCIUM (BEAKER) 8.0 mg/dL 8.4-10.2 L (test code = 697) EGFR (BEAKER) (test 203 mL/min/1.73 ESTIM ATED GFR IS code = 1092) sq m NOT ACCURATE CREATININE CLEARANCE IN PREDICTING GLOMERULAR FILTRATION RATE . ESTIMATED GFR I S NOT APPLICABLE FOR DIALYSIS PATIEN TS. Bonding Machine Operator ID - PIAYA LCREATINE KINASE (CK)2019-10-27 07:32:00 Test Item Value Reference Range Interpretation Comments CREATINE KINASE TOTAL (BEAKER) (test 161 U/L 29-200 code = 380) Bonding Machine Operator ID - JAMAR LCBC (HEMOGRAM ONLY)2019-10-27 05:57:00 Test Item Value Reference Range Interpretation Comments WHITE BLOOD CELL COUNT (BEAKER) 20.4 K/ L 3.5-10.5 H (test code = 775) RED BLOOD CELL COUNT (BEAKER) 3.25 M/ L 4.63-6.08 L (test code = 761) HEMOGLOBIN (BEAKER) (test code = 9.1 GM/DL 13.7-17.5 L 410) HEMATOCRIT (BEAKER) (test code = 28.6 % 40.1-51.0 L 411) MEAN CORPUSCULAR VOLUME (BEAKER) 88.0 fL 79.0-92.2 (test code = 753) MEAN CORPUSCULAR HEMOGLOBIN 28.0 pg 25.7-32.2 (BEAKER) (test code = 751) MEAN CORPUSCULAR HEMOGLOBIN CONC 31.8 GM/DL 32.3-36.5 L (BEAKER) (test code = 752) RED CELL DISTRIBUTION WIDTH 14.9 % 11.6-14.4 H (BEAKER) (test code = 412) PLATELET COUNT (BEAKER) (test 562 K/CU MM 150-450 H code = 756) MEAN PLATELET VOLUME (BEAKER) 8.9 fL 9.4-12.4 L (test code = 754) NUCLEATED RED BLOOD CELLS 0 /100 WBC 0-0 (BEAKER) (test code = 413) POCT-GLUCOSE [id number] 12:21:00 Test Item Value Reference Range Interpretation Comments POC-GLUCOSE METER 127 mg/dL 70-110 H : TESTED A T [facility] 6720 (BEAKER) (test code = [place], 1538) [address]: Bonding Machine Operator/Techni telma ID = [id number] for IRAIS GLEZ AMYLASE, BODY [id number] 11:43:00 Test Item Value Reference Range Interpretation Comments AMYLASE FLUID (BEAKER) SPECI MEN UNSUITABLE; NOT (test code = 350) ABLE TO RU N. [id number] Absence of reference range indicates that normals have not been defined.Assay performance has not been validated for this type of specimen.AMYLASE, BODY FLUID 2019-10-26 09:49:00 Test Item Value Reference Range Interpretation Comments AMYLASE FLUID (BEAKER) SPECI MEN UNSUITABLE FOR (test code = 350) TESTING. [id number] Absence of reference range indicates that normals have not been defined.Assay performance has not been validated for this type of specimen.CBC (HEMOGRAM ONLY) 2019-10-26 06:15:00 Test Item Value Reference Range Interpretation Comments WHITE BLOOD CELL COUNT (BEAKER) 21.5 K/ L 3.5-10.5 H (test code = 775) RED BLOOD CELL COUNT (BEAKER) 3.24 M/ L 4.63-6.08 L (test code = 761) HEMOGLOBIN (BEAKER) (test code = 9.0 GM/DL 13.7-17.5 L 410) HEMATOCRIT (BEAKER) (test code = 28.4 % 40.1-51.0 L 411) MEAN CORPUSCULAR VOLUME (BEAKER) 87.7 fL 79.0-92.2 (test code = 753) MEAN CORPUSCULAR HEMOGLOBIN 27.8 pg 25.7-32.2 (BEAKER) (test code = 751) MEAN CORPUSCULAR HEMOGLOBIN CONC 31.7 GM/DL 32.3-36.5 L (BEAKER) (test code = 752) RED CELL DISTRIBUTION WIDTH 14.8 % 11.6-14.4 H (BEAKER) (test code = 412) PLATELET COUNT (BEAKER) (test 526 K/CU MM 150-450 H code = 756) MEAN PLATELET VOLUME (BEAKER) 8.9 fL 9.4-12.4 L (test code = 754) NUCLEATED RED BLOOD CELLS 0 /100 WBC 0-0 (BEAKER) (test code = 413) BASIC METABOLIC [id number] 05:57:00 Test Item Value Reference Range Interpretation Comments SODIUM (BEAKER) 138 meq/L 136-145 (test code = 381) POTASSIUM (BEAKER) 3.3 meq/L 3.5-5.1 L (test code = 379) CHLORIDE (BEAKER) 102 meq/L 98-107 (test code = 382) CO2 (BEAKER) (test 31 meq/L 22-29 H code = 355) BLOOD UREA NITROGEN 5 mg/dL 7-21 L (BEAKER) (test code = 354) CREATININE (BEAKER) 0.67 mg/dL 0.57-1.25 (test code = 358) GLUCOSE RANDOM 115 mg/dL 70-105 H (BEAKER) (test code = 652) CALCIUM (BEAKER) 7.8 mg/dL 8.4-10.2 L (test code = 697) EGFR (BEAKER) (test 185 mL/min/1.73 ESTIM ATED GFR IS code = 1092) sq m NOT ACCURATE CREATININE CLEARANCE IN PREDICTING GLOMERULAR FILTRATION RATE . ESTIMATED GFR I S NOT APPLICABLE FOR DIALYSIS PATIEN TS. Bonding Machine Operator ID - EDASIHEPATIC FUNCTION [id number] 05:56:00 Test Item Value Reference Range Interpretation Comments TOTAL PROTEIN (BEAKER) (test code = 6.1 gm/dL 6.0-8.3 770) ALBUMIN (BEAKER) (test code = 1145) 2.6 g/dL 3.5-5.0 L BILIRUBIN TOTAL (BEAKER) (test code 0.7 mg/dL 0.2-1.2 = 377) BILIRUBIN DIRECT (BEAKER) (test 0.6 mg/dL 0.1-0.5 H code = 706) ALKALINE PHOSPHATASE (BEAKER) (test 104 U/L 40-150 code = 346) AST (SGOT) (BEAKER) (test code = 101 U/L 5-34 H 353) ALT (SGPT) (BEAKER) (test code = 141 U/L 6-55 H 347) Bonding Machine Operator ID - EDASICREATINE KINASE (CK)2019-10-26 05:56:00 Test Item Value Reference Range Interpretation Comments CREATINE KINASE TOTAL (BEAKER) (test 136 U/L 29-200 code = 380) Bonding Machine Operator ID - EDASIPOCT-GLUCOSE [id number] 16:17:00 Test Item Value Reference Range Interpretation Comments POC-GLUCOSE METER 98 mg/dL 70-110 : TESTED A T [facility] 6720 (BEAKER) (test code = [place], 1538) [address]: Bonding Machine Operator/Techni telma ID = [id number] for HEIDY CHAMORRO BASIC METABOLIC [id number] 07:22:00 Test Item Value Reference Range Interpretation Comments SODIUM (BEAKER) 133 meq/L 136-145 L (test code = 381) POTASSIUM (BEAKER) 3.4 meq/L 3.5-5.1 L (test code = 379) CHLORIDE (BEAKER) 99 meq/L 98-107 (test code = 382) CO2 (BEAKER) (test 28 meq/L 22-29 code = 355) BLOOD UREA NITROGEN 6 mg/dL 7-21 L (BEAKER) (test code = 354) CREATININE (BEAKER) 0.69 mg/dL 0.57-1.25 (test code = 358) GLUCOSE RANDOM 119 mg/dL 70-105 H (BEAKER) (test code = 652) CALCIUM (BEAKER) 7.7 mg/dL 8.4-10.2 L (test code = 697) EGFR (BEAKER) (test 179 mL/min/1.73 ESTIM ATED GFR IS code = 1092) sq m NOT ACCURATE CREATININE CLEARANCE IN PREDICTING GLOMERULAR FILTRATION RATE . ESTIMATED GFR I S NOT APPLICABLE FOR DIALYSIS PATIEN TS. Bonding Machine Operator ID - NTPHEPATIC FUNCTION [id number] 07:12:00 Test Item Value Reference Range Interpretation Comments TOTAL PROTEIN (BEAKER) (test code = 6.4 gm/dL 6.0-8.3 770) ALBUMIN (BEAKER) (test code = 1145) 2.8 g/dL 3.5-5.0 L BILIRUBIN TOTAL (BEAKER) (test code 0.9 mg/dL 0.2-1.2 = 377) BILIRUBIN DIRECT (BEAKER) (test 0.6 mg/dL 0.1-0.5 H code = 706) ALKALINE PHOSPHATASE (BEAKER) (test 103 U/L 40-150 code = 346) AST (SGOT) (BEAKER) (test code = 78 U/L 5-34 H 353) ALT (SGPT) (BEAKER) (test code = 106 U/L 6-55 H 347) Bonding Machine Operator ID - NTPCBC (HEMOGRAM ONLY)2019-10-25 06:43:00 Test Item Value Reference Range Interpretation Comments WHITE BLOOD CELL COUNT (BEAKER) 25.2 K/ L 3.5-10.5 H (test code = 775) RED BLOOD CELL COUNT (BEAKER) 3.47 M/ L 4.63-6.08 L (test code = 761) HEMOGLOBIN (BEAKER) (test code = 9.7 GM/DL 13.7-17.5 L 410) HEMATOCRIT (BEAKER) (test code = 30.5 % 40.1-51.0 L 411) MEAN CORPUSCULAR VOLUME (BEAKER) 87.9 fL 79.0-92.2 (test code = 753) MEAN CORPUSCULAR HEMOGLOBIN 28.0 pg 25.7-32.2 (BEAKER) (test code = 751) MEAN CORPUSCULAR HEMOGLOBIN CONC 31.8 GM/DL 32.3-36.5 L (BEAKER) (test code = 752) RED CELL DISTRIBUTION WIDTH 15.0 % 11.6-14.4 H (BEAKER) (test code = 412) PLATELET COUNT (BEAKER) (test 516 K/CU MM 150-450 H code = 756) MEAN PLATELET VOLUME (BEAKER) 9.1 fL 9.4-12.4 L (test code = 754) NUCLEATED RED BLOOD CELLS 0 /100 WBC 0-0 (BEAKER) (test code = 413) ANAEROBIC [id number] 19:33:00 Test Item Value Reference Range Interpretation Comments CULTURE (BEAKER) (test No anaerobes isolated code = 1095) ANAEROBIC [id number] 19:32:00 Test Item Value Reference Range Interpretation Comments CULTURE (BEAKER) (test No anaerobes isolated code = 1095) URINALYSIS W/ REFLEX URINE [id number] 18:06:00 Test Item Value Reference Range Interpretation Comments COLOR (BEAKER) (test code = 470) Yellow CLARITY (BEAKER) (test code = 469) Clear SPECIFIC GRAVITY UA (BEAKER) (test 1.014 1.001-1.035 code = 468) PH UA (BEAKER) (test code = 467) 6.5 5.0-8.0 PROTEIN UA (BEAKER) (test code = 10 mg/dL Negative A 464) GLUCOSE UA (BEAKER) (test code = Negative Negative 365) KETONES UA (BEAKER) (test code = Negative Negative 371) BILIRUBIN UA (BEAKER) (test code = Negative Negative 462) BLOOD UA (BEAKER) (test code = 461) Negative Negative NITRITE UA (BEAKER) (test code = Negative Negative 465) LEUKOCYTE ESTERASE UA (BEAKER) Negative Negative (test code = 466) UROBILINOGEN UA (BEAKER) (test code 0.2 mg/dL 0.2-1.0 = 463) RBC UA (BEAKER) (test code = 519) < /HPF WBC UA (BEAKER) (test code = 520) 4 /HPF SQUAMOUS EPITHELIAL (BEAKER) (test < /HPF code = 516) SOURCE(BEAKER) (test code = 2795) Bonding Machine Operator ID - [auto]Bonding Machine Operator ID - techCT, [id number] 17:30:00PLEASE ADMINISTER IV AND PO CONTRASTFINAL REPORT TECHNIQUE: CT of the chest, abdomen, and pelvis WITH intravenouscontrast and WITHOUT oral contrast. Dose modulation, iterative reconstruction, and/or weight-based ad justment of the mA/kV was utilized to reduce the radiation dose to as low as reasonably achievable. INDICATION: Respiratory insufficiency, leukocytosis status post left history laparotomy 10/18. COMPARISON: None. FINDINGS: LINES/TUBES: None. LUNGS AND AIRWAYS: Central airways are patent. Linear band of atelectasis in the superior segment of the right lower lobe consistent with subsegmental atelectasis. There is dependent atelectasis and consolidation in the bilateral lower lobes, left greater than right..2001PLEURA: Small left-sided pleural effusion..HEART AND MEDIASTINUM: The visualized thyroid gland is normal. No significant mediastinal, hilar, or axillary lymphadenopathy. The heart is enlarged.No significant pericardial effusion.. HEPATOBILIARY: No focal hepatic lesions. Gallbladder is absent.. There is mild pneumobilia likely related to recent biliary procedure..SPLEEN: No splenomegaly.PANCREAS: Diffuse enlargement of the pancreas with extensive peripancreatic edema. There is mild patchy decreased enhancement in the pancreatic neck. Pancreas otherwise demonstrates normal enhancement. There is edema with the adjacent retroperitoneum and within the mesentery. There is a surgical drain in the right upper quadrant.. ADRENALS: No adrenal nodules.KIDNEYS/URETERS: No hydronephrosis, stones, orsolid mass lesions.PELVIC ORGANS/BLADDER: Unremarkable. PERITONEUM/RETROPERITONEUM: No free air or fluid.LYMPH NODES: No lymphadenopathy.VESSELS: Unremarkable. GI TRACT: No distention or wall thickening. Appendix is normal. BONES AND SOFT TISSUES: There is an open midline surgical wound with packing material.. IMPRESSION:Status post cholecystectomy. There is acute pancreatitis with extensive retroperitoneal and mesenteric edema. There is mild decreased enhancement in the region of the pancreatic neck which may reflect mild necrosis. Remainder of the pancreas enhances normally. No focal fluid collection. Small left-sided pleural effusion with dependent groundglass consolidative opacities in the lower lobes which may represent atelectasis or pneumonia. Signed: Alan Bolton MDReport Verified Date/Time: 10/24/2019 17:30:15 Reading Location: [address] Transitional Reading Room CT, CHEST, WITH [id number] 17:30:00FINAL REPORT TECHNIQUE: CT of the chest, abdomen, and pelvis WITH intravenous contrast and WITHOUT oral contrast. Dose modulation, iterative reconstruction, and/or weight-based adjustment of the mA/kV was utilized to reduce the radiation dose to as low as reasonably achievable. INDICATION: Respiratory insufficiency, leukocytosis status post left history laparotomy 10/18. COMPARISON: None. FINDINGS: LINES/TUBES: None. LUNGS AND AIRWAYS: Central airways are patent. Linear band of atelectasis in the superior segment of the right lower lobe consistent with subsegmental atelectasis. There is dependent atelectasis and consolidation in the bilateral lower lobes, left greater than right..2001PLEURA: Small left-sided pleural effusion..HEART AND MEDIASTINUM: The visualized thyroid gland is normal. No significant mediastinal, hilar, or axillary lymphadenopathy. The heart is enlarged.No significant pericardial effusion.. HEPATOBILIARY: No focal hepatic lesions. Gallbladder is absent.. There is mild pneumobilia likely related to recent biliary procedure..SPLEEN: No splenomegaly.PANCREAS: Diffuse enlargement of the pancreas with extensive peripancreatic edema. There is mild patchy decreased enhancement in the pancreatic neck. Pancreas otherwise demonstrates normal enhancement. There is edema with the adjacent retroperitoneum and within the mesentery. There is a surgical drain in the right upper quadrant.. ADRENALS: No adrenal nodules.KIDNEYS/URETERS: No hydronephrosis, stones, orsolid mass lesions.PELVIC ORGANS/BLADDER: Unremarkable. PERITONEUM/RETROPERITONEUM: No free air or fl uid.LYMPH NODES: No lymphadenopathy.VESSELS: Unremarkable. GI TRACT: No distention or wall thickening. Appendix is normal. BONES AND SOFT TISSUES: There is an open midline surgical wound with packing material.. IMPRESSION:Status post cholecystectomy. There is acute pancreatitis with extensive retroperitoneal and mesenteric edema. There is mild decreased enhancement in the region of the pancreatic neck which may reflect mild necrosis. Remainder of the pancreas enhances normally. No focal fluid collection. Small left-sided pleural effusion with dependent groundglass consolidative opacities in the lower lobes which may represent atelectasis or pneumonia. Signed: Alan Bolton MDReport Verified Date/Time: 10/24/2019 17:30:15 Reading Location: [address] Transitional Reading Room POCT-GLUCOSE [id number] 11:49:00 Test Item Value Reference Range Interpretation Comments POC-GLUCOSE METER 153 mg/dL 70-110 H : TESTED A T [facility] 6720 (BEAKER) (test code = [facility], 1538) [address]: Bonding Machine Operator/Techni telma ID = [id number] for HEIDY WATSON BASIC METABOLIC [id number] 06:36:00 Test Item Value Reference Range Interpretation Comments SODIUM (BEAKER) 134 meq/L 136-145 L (test code = 381) POTASSIUM (BEAKER) 3.2 meq/L 3.5-5.1 L (test code = 379) CHLORIDE (BEAKER) 98 meq/L 98-107 (test code = 382) CO2 (BEAKER) (test 28 meq/L 22-29 code = 355) BLOOD UREA NITROGEN 8 mg/dL 7-21 (BEAKER) (test code = 354) CREATININE (BEAKER) 0.68 mg/dL 0.57-1.25 (test code = 358) GLUCOSE RANDOM 122 mg/dL 70-105 H (BEAKER) (test code = 652) CALCIUM (BEAKER) 7.9 mg/dL 8.4-10.2 L (test code = 697) EGFR (BEAKER) (test 182 mL/min/1.73 ESTIM ATED GFR IS code = 1092) sq m NOT ACCURATE CREATININE CLEARANCE IN PREDICTING GLOMERULAR FILTRATION RATE . ESTIMATED GFR I S NOT APPLICABLE FOR DIALYSIS PATIEN TS. Bonding Machine Operator ID - EDASIHEPATIC FUNCTION [id number] 05:57:00 Test Item Value Reference Range Interpretation Comments TOTAL PROTEIN (BEAKER) (test code = 6.2 gm/dL 6.0-8.3 770) ALBUMIN (BEAKER) (test code = 1145) 2.8 g/dL 3.5-5.0 L BILIRUBIN TOTAL (BEAKER) (test code 0.9 mg/dL 0.2-1.2 = 377) BILIRUBIN DIRECT (BEAKER) (test 0.7 mg/dL 0.1-0.5 H code = 706) ALKALINE PHOSPHATASE (BEAKER) (test 105 U/L 40-150 code = 346) AST (SGOT) (BEAKER) (test code = 72 U/L 5-34 H 353) ALT (SGPT) (BEAKER) (test code = 95 U/L 6-55 H 347) Bonding Machine Operator ID - EDASICBC (HEMOGRAM ONLY)2019-10-24 05:29:00 Test Item Value Reference Range Interpretation Comments WHITE BLOOD CELL COUNT (BEAKER) 27.9 K/ L 3.5-10.5 H (test code = 775) RED BLOOD CELL COUNT (BEAKER) 3.55 M/ L 4.63-6.08 L (test code = 761) HEMOGLOBIN (BEAKER) (test code = 10.3 GM/DL 13.7-17.5 L 410) HEMATOCRIT (BEAKER) (test code = 30.7 % 40.1-51.0 L 411) MEAN CORPUSCULAR VOLUME (BEAKER) 86.5 fL 79.0-92.2 (test code = 753) MEAN CORPUSCULAR HEMOGLOBIN 29.0 pg 25.7-32.2 (BEAKER) (test code = 751) MEAN CORPUSCULAR HEMOGLOBIN CONC 33.6 GM/DL 32.3-36.5 (BEAKER) (test code = 752) RED CELL DISTRIBUTION WIDTH 14.9 % 11.6-14.4 H (BEAKER) (test code = 412) PLATELET COUNT (BEAKER) (test 463 K/CU MM 150-450 H code = 756) MEAN PLATELET VOLUME (BEAKER) 9.0 fL 9.4-12.4 L (test code = 754) NUCLEATED RED BLOOD CELLS 0 /100 WBC 0-0 (BEAKER) (test code = 413) TISSUE [id number] 13:16:00Surgical Pathology Report Case: [id number] Authorizing Provider: Amalia Reyez MD Collected: 10/19/2019 12:15 PM Ordering Location: [facility] Received: 10/19/2019 02:33 PM SERVICES Pathologist: Yessi Harrington MD Specimen: Gallb ladder GALL BLADDER, CHOLECYSTECTOMY: - ACUTE ON CHRONIC CHOLECYSTITIS - CHOLELITHIASIS - CYSTIC DUCT MARGIN IS UNREMARKABLE - NEGATIVE FOR DYSPLASIA OR MALIGNANCY Signing Pathologist Direct Phone Line: [phone] ronically signed by Yessi Harrington MD on 10/23/2019 at 1:16 [id number], commonbile duct Gallbladder Received in formalin is labeled with name, accession number, "gallbladder" is a 6.7 x 4.0 x 1.2 cm intact gallbladder with a 0.6 cm in length and 0.9 cm in diameter cystic duct. There are no attached lymph nodes. The surface is brown-green, lobulated. Upon opening the mucosa is red velvety to green. There is a disruption measuring 1.6 x 0.2 cm that is 3.0 cm from the cystic ductneck margin. The wall ranges in thickness from 0.2 to 0.4 cm. It is edematous. There is 20 cc of green brown bile. There are multiple calculi ranging from 0.4 x 0.3 x 0.3 cm to 0.5 x 0.4 x 0.4 cm and 3.0 x 2.5 x 0.5 cm in greatest dimension. There was no calculus in the cystic duct. The calculi are crushable and displays a white center. Also the calculi are brown and bosselated. [employer] sections are submitted in cassette A1 (duct, neck to body); A2, (body to fundus. .JG/plPerformedPOCT- GLUCOSE [id number] 11:38:00 Test Item Value Reference Range Interpretation Comments POC-GLUCOSE METER 113 mg/dL 70-110 H : TESTED A T [facility] 6720 (BEAKER) (test code = [facility], 1538) [address]: Bonding Machine Operator/Techni telma ID = [id number] for Erasmo Aragon CREATINE KINASE (CK)2019-10-23 10:22:00 Test Item Value Reference Range Interpretation Comments CREATINE KINASE TOTAL (BEAKER) (test 253 U/L 29-200 H code = 380) Bonding Machine Operator ID - MEAGANHAO, CHEST, 1 VIEW, NON [id number] 08:04:00Reason for exam:->resp insuffciency, pulm edemaShould this be performed at the bedside?->YesFINAL REPORT CLINICAL HISTORY: resp insuffciency, pulm edema TECHNIQUE: 1 view of the chest. COMPARISON: 10/22/2019 IMPRESSION: Low lung volumes are again seen with bandlike opacities in both lower lung zones. Subpulmonic pleural effusions cannot be excluded. The cardiomediastinal silhouette is magnified by technique. Signed: Nabor Hutchisoneport Verified Date/Time: 10/23/2019 08:04:47 Reading Location: [facility] Radiology Reading Room POCT-GLUCOSE [id number] 06:35:00 Test Item Value Reference Range Interpretation Comments POC-GLUCOSE METER 147 mg/dL 70-110 H : TESTED A T [facility] 6720 (BEAKER) (test code = [facility], 1538) [id number]: Bonding Machine Operator/Techni telma ID = [id number] for PINKY ARAGON BASIC METABOLIC [id number] 06:32:00 Test Item Value Reference Range Interpretation Comments SODIUM (BEAKER) 135 meq/L 136-145 L (test code = 381) POTASSIUM (BEAKER) 3.7 meq/L 3.5-5.1 (test code = 379) CHLORIDE (BEAKER) 99 meq/L 98-107 (test code = 382) CO2 (BEAKER) (test 29 meq/L 22-29 code = 355) BLOOD UREA NITROGEN 10 mg/dL 7-21 (BEAKER) (test code = 354) CREATININE (BEAKER) 0.67 mg/dL 0.57-1.25 (test code = 358) GLUCOSE RANDOM 123 mg/dL 70-105 H (BEAKER) (test code = 652) CALCIUM (BEAKER) 7.9 mg/dL 8.4-10.2 L (test code = 697) EGFR (BEAKER) (test 185 mL/min/1.73 ESTIM ATED GFR IS code = 1092) sq m NOT ACCURATE CREATININE CLEARANCE IN PREDICTING GLOMERULAR FILTRATION RATE . ESTIMATED GFR I S NOT APPLICABLE FOR DIALYSIS PATIEN TS. Bonding Machine Operator ID - [id number] 06:29:00 Test Item Value Reference Range Interpretation Comments PHOSPHORUS (BEAKER) (test code = 3.5 mg/dL 2.3-4.7 604) Bonding Machine Operator ID - [id number] 06:29:00 Test Item Value Reference Range Interpretation Comments MAGNESIUM (BEAKER) (test code = 2.1 mg/dL 1.6-2.6 627) Bonding Machine Operator ID - EDASIHEPATIC FUNCTION [id number] 06:29:00 Test Item Value Reference Range Interpretation Comments TOTAL PROTEIN (BEAKER) (test code = 6.2 gm/dL 6.0-8.3 770) ALBUMIN (BEAKER) (test code = 1145) 2.8 g/dL 3.5-5.0 L BILIRUBIN TOTAL (BEAKER) (test code 1.1 mg/dL 0.2-1.2 = 377) BILIRUBIN DIRECT (BEAKER) (test 0.8 mg/dL 0.1-0.5 H code = 706) ALKALINE PHOSPHATASE (BEAKER) (test 94 U/L 40-150 code = 346) AST (SGOT) (BEAKER) (test code = 71 U/L 5-34 H 353) ALT (SGPT) (BEAKER) (test code = 87 U/L 6-55 H 347) Bonding Machine Operator ID - [id number] (HEMOGRAM ONLY)[id number] 05:55:00 Test Item Value Reference Range Interpretation Comments WHITE BLOOD CELL COUNT (BEAKER) 28.2 K/ L 3.5-10.5 H (test code = 775) RED BLOOD CELL COUNT (BEAKER) 3.62 M/ L 4.63-6.08 L (test code = 761) HEMOGLOBIN (BEAKER) (test code = 10.2 GM/DL 13.7-17.5 L 410) HEMATOCRIT (BEAKER) (test code = 31.5 % 40.1-51.0 L 411) MEAN CORPUSCULAR VOLUME (BEAKER) 87.0 fL 79.0-92.2 (test code = 753) MEAN CORPUSCULAR HEMOGLOBIN 28.2 pg 25.7-32.2 (BEAKER) (test code = 751) MEAN CORPUSCULAR HEMOGLOBIN CONC 32.4 GM/DL 32.3-36.5 (BEAKER) (test code = 752) RED CELL DISTRIBUTION WIDTH 14.8 % 11.6-14.4 H (BEAKER) (test code = 412) PLATELET COUNT (BEAKER) (test 443 K/CU MM 150-450 code = 756) MEAN PLATELET VOLUME (BEAKER) 9.3 fL 9.4-12.4 L (test code = 754) NUCLEATED RED BLOOD CELLS 0 /100 WBC 0-0 (BEAKER) (test code = 413) POCT-GLUCOSE [id number] 00:52:00 Test Item Value Reference Range Interpretation Comments POC-GLUCOSE METER 160 mg/dL 70-110 H : TESTED A T [facility] 6720 (BEAKER) (test code = [facility], 1538) [address]: Bonding Machine Operator/Techni telma ID = [id number] for PINKY ARAGON POCT-GLUCOSE [id number] 18:21:00 Test Item Value Reference Range Interpretation Comments POC-GLUCOSE METER 140 mg/dL 70-110 H : TESTED A T [facility] 6720 (BEAKER) (test code = [facility], 1538) 680[address]: Bonding Machine Operator/Techni telma ID = [id number] for Wi kennyiamsJarona POCT-GLUCOSE [id number] 16:06:00 Test Item Value Reference Range Interpretation Comments POC-GLUCOSE METER 107 mg/dL 70-110 : TESTED A T [facility] 6720 (BEAKER) (test code = [place], 1538) [address]: Bonding Machine Operator/Techni telma ID = [id number] for Erasmo Aragon BASIC METABOLIC [id number] 16:02:00 Test Item Value Reference Range Interpretation Comments SODIUM (BEAKER) 133 meq/L 136-145 L (test code = 381) POTASSIUM (BEAKER) 4.0 meq/L 3.5-5.1 (test code = 379) CHLORIDE (BEAKER) 98 meq/L 98-107 (test code = 382) CO2 (BEAKER) (test 30 meq/L 22-29 H code = 355) BLOOD UREA NITROGEN 14 mg/dL 7-21 (BEAKER) (test code = 354) CREATININE (BEAKER) 0.76 mg/dL 0.57-1.25 (test code = 358) GLUCOSE RANDOM 127 mg/dL 70-105 H (BEAKER) (test code = 652) CALCIUM (BEAKER) 7.8 mg/dL 8.4-10.2 L (test code = 697) EGFR (BEAKER) (test 160 mL/min/1.73 ESTIM ATED GFR IS code = 1092) sq m NOT ACCURATE CREATININE CLEARANCE IN PREDICTING GLOMERULAR FILTRATION RATE . ESTIMATED GFR I S NOT APPLICABLE FOR DIALYSIS PATIEN TS. Bonding Machine Operator ID - [id number] 15:59:00 Test Item Value Reference Range Interpretation Comments PHOSPHORUS (BEAKER) (test code = 3.5 mg/dL 2.3-4.7 604) Bonding Machine Operator ID - [id number] 15:59:00 Test Item Value Reference Range Interpretation Comments MAGNESIUM (BEAKER) (test code = 2.2 mg/dL 1.6-2.6 627) Bonding Machine Operator ID - BSCBC (HEMOGRAM ONLY)2019-10-22 15:46:00 Test Item Value Reference Range Interpretation Comments WHITE BLOOD CELL COUNT (BEAKER) 26.5 K/ L 3.5-10.5 H (test code = 775) RED BLOOD CELL COUNT (BEAKER) 3.82 M/ L 4.63-6.08 L (test code = 761) HEMOGLOBIN (BEAKER) (test code = 11.1 GM/DL 13.7-17.5 L 410) HEMATOCRIT (BEAKER) (test code = 33.1 % 40.1-51.0 L 411) MEAN CORPUSCULAR VOLUME (BEAKER) 86.6 fL 79.0-92.2 (test code = 753) MEAN CORPUSCULAR HEMOGLOBIN 29.1 pg 25.7-32.2 (BEAKER) (test code = 751) MEAN CORPUSCULAR HEMOGLOBIN CONC 33.5 GM/DL 32.3-36.5 (BEAKER) (test code = 752) RED CELL DISTRIBUTION WIDTH 14.8 % 11.6-14.4 H (BEAKER) (test code = 412) PLATELET COUNT (BEAKER) (test 441 K/CU MM 150-450 code = 756) MEAN PLATELET VOLUME (BEAKER) 9.3 fL 9.4-12.4 L (test code = 754) NUCLEATED RED BLOOD CELLS 0 /100 WBC 0-0 (BEAKER) (test code = 413) SURGICALLY OBTAINED CULTURE + GRAM [id number] 11:26:00 Test Item Value Reference Range Interpretation Comments CULTURE (BEAKER) (test No growth code = 1095) GRAM STAIN RESULT No WBCs (BEAKER) (test code = 1123) GRAM STAIN RESULT 1+ gram negative rods (BEAKER) (test code = 94313) SURGICALLY OBTAINED CULTURE + GRAM [id number] 11:25:00 Test Item Value Reference Range Interpretation Comments CULTURE (BEAKER) (test code No growth = 1095) GRAM STAIN RESULT (BEAKER) <1+ WBCs (test code = 1123) GRAM STAIN RESULT (BEAKER) No organisms seen (test code = 29917) RAD, CHEST, 1 VIEW, NON [id number] 07:41:00Reason for exam:->resp insuffciency, pulm edemaShould this be performed at the bedside?->YesFINAL REPORT Chest AP portable Comparison exam: 10/21/2019 History provided: Respiratory insufficiency Heart size magnified by projection and poor inspiration. Lungs grossly clearand vascularity normal. Signed: Ryder Andrew MDReport Verified Date/Time: 10/22/2019 07:41:48 Reading Location: [facility] Diagnostic Imaging Reading Room - [facility] 1.310.12 POCT-GLUCOSE [id number] 05:39:00 Test Item Value Reference Range Interpretation Comments POC-GLUCOSE METER 103 mg/dL 70-110 : TESTED A T [facility] 6720 (BEAKER) (test code = [place], 1538) 466[address]: Bonding Machine Operator/Techni telma ID = [id number] for RADHA CHARLENEVALENTIN BASIC METABOLIC [id number] 05:15:00 Test Item Value Reference Range Interpretation Comments SODIUM (BEAKER) 133 meq/L 136-145 L (test code = 381) POTASSIUM (BEAKER) 4.1 meq/L 3.5-5.1 (test code = 379) CHLORIDE (BEAKER) 98 meq/L 98-107 (test code = 382) CO2 (BEAKER) (test 28 meq/L 22-29 code = 355) BLOOD UREA NITROGEN 17 mg/dL 7-21 (BEAKER) (test code = 354) CREATININE (BEAKER) 0.78 mg/dL 0.57-1.25 (test code = 358) GLUCOSE RANDOM 149 mg/dL 70-105 H (BEAKER) (test code = 652) CALCIUM (BEAKER) 7.9 mg/dL 8.4-10.2 L (test code = 697) EGFR (BEAKER) (test 155 mL/min/1.73 ESTIM ATED GFR IS code = 1092) sq m NOT ACCURATE CREATININE CLEARANCE IN PREDICTING GLOMERULAR FILTRATION RATE . ESTIMATED GFR I S NOT APPLICABLE FOR DIALYSIS PATIEN TS. Bonding Machine Operator ID - DEMARCO [id number] 05:11:00 Test Item Value Reference Range Interpretation Comments PHOSPHORUS (BEAKER) (test code = 3.7 mg/dL 2.3-4.7 604) Bonding Machine Operator ID - DEMARCO [id number] 05:11:00 Test Item Value Reference Range Interpretation Comments MAGNESIUM (BEAKER) (test code = 2.2 mg/dL 1.6-2.6 627) Bonding Machine Operator ID - DEMARCO WHEPATIC FUNCTION [id number] 05:11:00 Test Item Value Reference Range Interpretation Comments TOTAL PROTEIN (BEAKER) (test code = 6.0 gm/dL 6.0-8.3 770) ALBUMIN (BEAKER) (test code = 1145) 2.8 g/dL 3.5-5.0 L BILIRUBIN TOTAL (BEAKER) (test code 1.2 mg/dL 0.2-1.2 = 377) BILIRUBIN DIRECT (BEAKER) (test 0.9 mg/dL 0.1-0.5 H code = 706) ALKALINE PHOSPHATASE (BEAKER) (test 94 U/L 40-150 code = 346) AST (SGOT) (BEAKER) (test code = 72 U/L 5-34 H 353) ALT (SGPT) (BEAKER) (test code = 70 U/L 6-55 H 347) Bonding Machine Operator EUGENE PAL WCBC (HEMOGRAM ONLY)2019-10-22 04:27:00 Test Item Value Reference Range Interpretation Comments WHITE BLOOD CELL COUNT (BEAKER) 25.3 K/ L 3.5-10.5 H (test code = 775) RED BLOOD CELL COUNT (BEAKER) 3.79 M/ L 4.63-6.08 L (test code = 761) HEMOGLOBIN (BEAKER) (test code = 10.7 GM/DL 13.7-17.5 L 410) HEMATOCRIT (BEAKER) (test code = 33.0 % 40.1-51.0 L 411) MEAN CORPUSCULAR VOLUME (BEAKER) 87.1 fL 79.0-92.2 (test code = 753) MEAN CORPUSCULAR HEMOGLOBIN 28.2 pg 25.7-32.2 (BEAKER) (test code = 751) MEAN CORPUSCULAR HEMOGLOBIN CONC 32.4 GM/DL 32.3-36.5 (BEAKER) (test code = 752) RED CELL DISTRIBUTION WIDTH 14.9 % 11.6-14.4 H (BEAKER) (test code = 412) PLATELET COUNT (BEAKER) (test 418 K/CU MM 150-450 code = 756) MEAN PLATELET VOLUME (BEAKER) 9.6 fL 9.4-12.4 (test code = 754) NUCLEATED RED BLOOD CELLS 0 /100 WBC 0-0 (BEAKER) (test code = 413) POCT-GLUCOSE [id number] 00:46:00 Test Item Value Reference Range Interpretation Comments POC-GLUCOSE METER 131 mg/dL 70-110 H : TESTED A T [facility] 67[facility] (BEAKER) (test code = [place], 1538) [address]: Bonding Machine Operator/Techni telma ID = [id number] for VALENTIN GARCIA [id number] 14:35:00 Test Item Value Reference Range Interpretation Comments MAGNESIUM (BEAKER) (test code = 2.4 mg/dL 1.6-2.6 627) Bonding Machine Operator ID Carter NORIEGA FBASIC METABOLIC [id number] 14:24:00 Test Item Value Reference Range Interpretation Comments SODIUM (BEAKER) 134 meq/L 136-145 L (test code = 381) POTASSIUM (BEAKER) 4.2 meq/L 3.5-5.1 (test code = 379) CHLORIDE (BEAKER) 98 meq/L 98-107 (test code = 382) CO2 (BEAKER) (test 28 meq/L 22-29 code = 355) BLOOD UREA NITROGEN 18 mg/dL 7-21 (BEAKER) (test code = 354) CREATININE (BEAKER) 0.84 mg/dL 0.57-1.25 (test code = 358) GLUCOSE RANDOM 123 mg/dL 70-105 H (BEAKER) (test code = 652) CALCIUM (BEAKER) 7.8 mg/dL 8.4-10.2 L (test code = 697) EGFR (BEAKER) (test 143 mL/min/1.73 ESTIM ATED GFR IS code = 1092) sq m NOT ACCURATE CREATININE CLEARANCE IN PREDICTING GLOMERULAR FILTRATION RATE . ESTIMATED GFR I S NOT APPLICABLE FOR DIALYSIS PATIEN TS. Bonding Machine Operator ID Carter NORIEGA [id number] 14:22:00 Test Item Value Reference Range Interpretation Comments PHOSPHORUS (BEAKER) (test code = 2.8 mg/dL 2.3-4.7 604) Bonding Machine Operator ID Carter NORIEGA FPOCT-GLUCOSE [id number] 13:30:00 Test Item Value Reference Range Interpretation Comments POC-GLUCOSE METER 124 mg/dL 70-110 H : [facility] ([facility]) (test code = [facility] [place] [facility], 1538) [address]: Bonding Machine Operator/Techni telma ID = [id number] for Rizwana Long POCT-GLUCOSE [id number] 06:41:00 Test Item Value Reference Range Interpretation Comments POC-GLUCOSE METER 117 mg/dL 70-110 H : TESTED A T [facility] 6720 (BEAKER) (test code = [place], 1538) [address]: Bonding Machine Operator/Techni telma ID = [id number] for CHIKIS KINNEY [id number] 06:40:00 Test Item Value Reference Range Interpretation Comments MAGNESIUM (BEAKER) 3.1 mg/dL 1.6-2.6 H Specimen moderately (test code = 627) hemolyzed Bonding Machine Operator ID - [id number] 06:40:00 Test Item Value Reference Range Interpretation Comments PHOSPHORUS (BEAKER) 3.5 mg/dL 2.3-4.7 Specimen moderately (test code = 604) hemolyzed Bonding Machine Operator ID - EDASIHEPATIC FUNCTION [id number] 06:40:00 Test Item Value Reference Range Interpretation Comments TOTAL PROTEIN (BEAKER) 5.7 gm/dL 6.0-8.3 L Speci men moderately (test code = 770) hemolyzed ALBUMIN (BEAKER) (test 2.5 g/dL 3.5-5.0 L Speci men moderately code = 1145) hemolyzed BILIRUBIN TOTAL 1.1 mg/dL 0.2-1.2 Specimen mod erately (BEAKER) (test code = hemoly zed 377) BILIRUBIN DIRECT 0.5 mg/dL 0.1-0.5 Specimen mo derately (BEAKER) (test code = hemoly zed 706) ALKALINE PHOSPHATASE 76 U/L 40-150 (BEAKER) (test code = 346) AST (SGOT) (BEAKER) 37 U/L 5-34 H Specimen moderately (test code = 353) hemolyzed ALT (SGPT) (BEAKER) 39 U/L 6-55 Specimen moderately (test code = 347) hemolyzed Bonding Machine Operator ID - EDASIBASIC METABOLIC [id number] 06:40:00 Test Item Value Reference Range Interpretation Comments SODIUM (BEAKER) 136 meq/L 136-145 (test code = 381) POTASSIUM (BEAKER) 4.3 meq/L 3.5-5.1 Specimen moderately (test code = 379) hemolyzed CHLORIDE (BEAKER) 103 meq/L 98-107 (test code = 382) CO2 (BEAKER) (test 25 meq/L 22-29 code = 355) BLOOD UREA NITROGEN 17 mg/dL 7-21 (BEAKER) (test code = 354) CREATININE (BEAKER) 0.69 mg/dL 0.57-1.25 Specimen moderately (test code = 358) hemolyzed GLUCOSE RANDOM 96 mg/dL 70-105 (BEAKER) (test code = 652) CALCIUM (BEAKER) 7.1 mg/dL 8.4-10.2 L (test code = 697) EGFR (BEAKER) (test 179 mL/min/1.73 ESTIM ATED GFR IS code = 1092) sq m NOT ACCURATE CREATININE CLEARANCE IN PREDICTING GLOMERULAR FILTRATION RATE . ESTIMATED GFR I S NOT APPLICABLE FOR DIALYSIS PATIEN TS. Bonding Machine Operator ID - EDASILACTIC ACID, [id number] 06:16:00 Test Item Value Reference Range Interpretation Comments LACTATE BLOOD 1.1 mmol/L 0.5-2.2 Specimen sligh tly ARTERIAL (2) (BEAKER) hemoly zed (test code = 2874) Bonding Machine Operator ID - EDASICBC (HEMOGRAM ONLY)2019-10-21 05:53:00 Test Item Value Reference Range Interpretation Comments WHITE BLOOD CELL COUNT (BEAKER) 24.9 K/ L 3.5-10.5 H (test code = 775) RED BLOOD CELL COUNT (BEAKER) 4.29 M/ L 4.63-6.08 L (test code = 761) HEMOGLOBIN (BEAKER) (test code = 12.3 GM/DL 13.7-17.5 L 410) HEMATOCRIT (BEAKER) (test code = 37.7 % 40.1-51.0 L 411) MEAN CORPUSCULAR VOLUME (BEAKER) 87.9 fL 79.0-92.2 (test code = 753) MEAN CORPUSCULAR HEMOGLOBIN 28.7 pg 25.7-32.2 (BEAKER) (test code = 751) MEAN CORPUSCULAR HEMOGLOBIN CONC 32.6 GM/DL 32.3-36.5 (BEAKER) (test code = 752) RED CELL DISTRIBUTION WIDTH 14.9 % 11.6-14.4 H (BEAKER) (test code = 412) PLATELET COUNT (BEAKER) (test 392 K/CU MM 150-450 code = 756) MEAN PLATELET VOLUME (BEAKER) 10.0 fL 9.4-12.4 (test code = 754) NUCLEATED RED BLOOD CELLS 0 /100 WBC 0-0 (BEAKER) (test code = 413) RAD, ABDOMEN/KUB, 1 VIEW [id number] 05:21:00Reason for exam:->NG tube positionShould this be performed at the bedside?->YesFINAL REPORT TECHNIQUE: Supine views of the abdomen. INDICATION: NG tube posit ion. COMPARISON: None. FINDINGS/IMPRESSION: The nasogastric tube descends below the gastroesophageal junction terminating in the region of the gastric fundus. Bowel gas pattern is nonspecific but nonobstructive. Surgical drain overlies the right upper abdomen. Signed: Esperanza Wynn Verified Date/Time: 10/21/2019 05:21:40 CALCIUM, [id number] 05:18:00 Test Item Value Reference Range Interpretation Comments CALCIUM IONIZED (BEAKER) (test 1.01 mmol/L 1.12-1.27 L code = 698) PH, BLOOD (BEAKER) (test code = 7.43 1810) BLOOD [id number] 03:00:00 Test Item Value Reference Range Interpretation Comments CULTURE (BEAKER) (test No growth in 5 days code = 1095) BLOOD [id number] 03:00:00 Test Item Value Reference Range Interpretation Comments CULTURE (BEAKER) (test No growth in 5 days code = 1095) RAD, CHEST, 1 VIEW, NON [id number] 01:12:00Reason for exam:->resp insuffciency, pulm edemaShould this be performed at the bedside?->YesFINAL REPORT RAD, CHEST, 1 VIEW, NON DEPT INDICATION: resp insuffciency, pulmedema COMPARISON: Prior day's exam FINDINGS: Portable frontal view of the chest. IMPRESSION: Support Lines: Interval extubation. Otherwise unchanged support apparatus. Lungs and pleura: Unchanged airspace and pleural opacities. No pneumothorax.Heart and mediastinum: Stable contours. Additional findings: None. Signed: Rona Irwineport Verified Date/Time: 10/21/2019 01:12:01 POCT-GLUCOSE [id number] 00:07:00 Test Item Value Reference Range Interpretation Comments POC-GLUCOSE METER 121 mg/dL 70-110 H : TESTED A T [facility] 6720 (BEAKER) (test code = [place] [facility], 1538) [address]: Bonding Machine Operator/Techni telma ID = [id number] for CHIKIS KINNEY POCT-GLUCOSE [id number] 17:19:00 Test Item Value Reference Range Interpretation Comments POC-GLUCOSE METER 121 mg/dL 70-110 H : TESTED A T [facility] 6720 (BEAKER) (test code = [facility] [facility], 1538) [address]: Bonding Machine Operator/Techni telma ID = [id number] for Rizwana Long [id number] 16:54:00 Test Item Value Reference Range Interpretation Comments PHOSPHORUS (BEAKER) (test code = 1.5 mg/dL 2.3-4.7 LL 604) Bonding Machine Operator ID - [facility] Serum Potassium level 2 hours after oral potassium replacement completed or 30 min after intravenous potassium replacement. [id number] 16:49:00 Test Item Value Reference Range Interpretation Comments POTASSIUM (BEAKER) (test code = 3.1 meq/L 3.5-5.1 L 379) Bonding Machine Operator ID - [facility] Serum Potassium level 2 hours after oral potassium replacement completed or 30 min after intravenous potassium replacement. [id number] 16:49:00 Test Item Value Reference Range Interpretation Comments MAGNESIUM (BEAKER) (test code = 1.3 mg/dL 1.6-2.6 L 627) Bonding Machine Operator ID - [facility] Serum Potassium level 2 hours after oral potassium replacement completed or 30 min after intravenous potassium replacement.AMYLASE PERITONEAL [id number] 13:16:00 Test Item Value Reference Range Interpretation Comments AMYLASE, PERITONEAL FLUID (test code 1843 U/L See Comment #2 = [id number]) Amylase activity in peritoneal fluids of non-pancreatic origin is often less than or equal to the amylase activity in blood, whereas elevated amylase activity has been reported in fluid of pancreatic origin (five-folds or higher compared to contemporaneously collected blood specimen).This test has been modified from the product handler's instructions and its performance characteristics were determined by [facility]. The laboratory is regulated under CLIA as qualified to perform high-complexity testing. This test has not been cleared or approved by the U.S. Food and Drug Administration. The reference intervals and other method performance specifications are unavailable for amylase in peritoneal fluid. Comparison of this result with the blood amylase is recommended.Bonding Machine Operator ID - LEANN F AMYLASE PERITONEAL [id number] 13:15:00 Test Item Value Reference Range Interpretation Comments AMYLASE, PERITONEAL FLUID (test code = 74 U/L See Comment #1 [id number]) Amylase activity in peritoneal fluids of non-pancreatic origin is often less than or equal to the amylase activity in blood, whereas elevated amylase activity has been reported in fluid of pancreatic origin (five-folds or higher compared to contemporaneously collected blood specimen).This test has been modified from the product handler's instructions and its performance characteristics were determined by [facility]. The laboratory is regulated under CLIA as qualified to perform high-complexity testing. This test has not been cleared or approved by the U.S. Food and Drug Administration. The reference intervals and other method performance specifications are unavailable for amylase in peritoneal fluid. Comparison of this result with the blood amylase is recommended.Bonding Machine Operator ID - LEANN FPOCT- GLUCOSE [id number] 12:44:00 Test Item Value Reference Range Interpretation Comments POC-GLUCOSE METER 115 mg/dL 70-110 H : TESTED A T [facility] 6720 (BEAKER) (test code = [place] [facility], 1538) [address]: Bonding Machine Operator/Techni telma ID = [id number] for Rizwana Long HEMOGLOBIN [id number] 09:54:00 Test Item Value Reference Range Interpretation Comments HEMOGLOBIN A1C (BEAKER) (test code = 5.5 % 4.3-6.1 368) SPIN/CONCENTRATION [id number] 07:21:00 Test Item Value Reference Range Interpretation Comments CONCENTRATION CHARGED (BEAKER) (test Done code = 2657) SPIN/CONCENTRATION [id number] 07:20:00 Test Item Value Reference Range Interpretation Comments CONCENTRATION CHARGED (BEAKER) (test Done code = 2657) POCT-GLUCOSE [id number] 06:27:00 Test Item Value Reference Range Interpretation Comments POC-GLUCOSE METER 151 mg/dL 70-110 H : [facility] (BEAKER) (test code = [place], 1538) [address]: Bonding Machine Operator/Techni telma ID = [id number] for CHIKIS KINNEY BASIC METABOLIC [id number] 06:06:00 Test Item Value Reference Range Interpretation Comments SODIUM (BEAKER) 133 meq/L 136-145 L (test code = 381) POTASSIUM (BEAKER) 4.1 meq/L 3.5-5.1 (test code = 379) CHLORIDE (BEAKER) 103 meq/L 98-107 (test code = 382) CO2 (BEAKER) (test 24 meq/L 22-29 code = 355) BLOOD UREA NITROGEN 12 mg/dL 7-21 (BEAKER) (test code = 354) CREATININE (BEAKER) 0.69 mg/dL 0.57-1.25 (test code = 358) GLUCOSE RANDOM 127 mg/dL 70-105 H (BEAKER) (test code = 652) CALCIUM (BEAKER) 6.9 mg/dL 8.4-10.2 L (test code = 697) EGFR (BEAKER) (test 179 mL/min/1.73 ESTIM ATED GFR IS code = 1092) sq m NOT ACCURATE CREATININE CLEARANCE IN PREDICTING GLOMERULAR FILTRATION RATE . ESTIMATED GFR I S NOT APPLICABLE FOR DIALYSIS PATIEN TS. Bonding Machine Operator ID - DBOperator ID - [id number] 05:19:00 Test Item Value Reference Range Interpretation Comments PHOSPHORUS (BEAKER) (test code = 2.5 mg/dL 2.3-4.7 604) Bonding Machine Operator ID - [id number] 05:19:00 Test Item Value Reference Range Interpretation Comments MAGNESIUM (BEAKER) (test code = 2.1 mg/dL 1.6-2.6 627) Bonding Machine Operator ID - DBHEPATIC FUNCTION [id number] 05:19:00 Test Item Value Reference Range Interpretation Comments TOTAL PROTEIN (BEAKER) (test code = 5.2 gm/dL 6.0-8.3 L 770) ALBUMIN (BEAKER) (test code = 1145) 2.5 g/dL 3.5-5.0 L BILIRUBIN TOTAL (BEAKER) (test code 1.2 mg/dL 0.2-1.2 = 377) BILIRUBIN DIRECT (BEAKER) (test 1.0 mg/dL 0.1-0.5 H code = 706) ALKALINE PHOSPHATASE (BEAKER) (test 66 U/L 40-150 code = 346) AST (SGOT) (BEAKER) (test code = 21 U/L 5-34 353) ALT (SGPT) (BEAKER) (test code = 41 U/L 6-55 347) Bonding Machine Operator ID - DBCALCIUM, [id number] 05:06:00 Test Item Value Reference Range Interpretation Comments CALCIUM IONIZED (BEAKER) (test 0.96 mmol/L 1.12-1.27 L code = 698) PH, BLOOD (BEAKER) (test code = 7.43 1810) BLOOD GAS, [id number] 04:55:00 Test Item Value Reference Range Interpretation Comments PH ARTERIAL (BEAKER) (test code = 7.42 7.35-7.45 383) PCO2 ARTERIAL (BEAKER) (test code 31 mmHg 35-45 L = 384) PO2 ARTERIAL (BEAKER) (test code 139 mmHg 80-90 H = 385) O2 SATURATION ARTERIAL (BEAKER) 98.8 % 96.0-97.0 H (test code = 386) HCO3 ARTERIAL (BEAKER) (test code 20 mmol/L 21-29 L = 388) BASE EXCESS ARTERIAL (BEAKER) -3.5 mmol/L -2.0-3.0 L (test code = 387) PATIENT TEMPERATURE (BEAKER) 37.7 C (test code = 1818) FIO2 (BEAKER) (test code = 1819) 40.0 % While intubatedLACTIC ACID, [id number] 04:53:00 Test Item Value Reference Range Interpretation Comments LACTATE BLOOD ARTERIAL (2) 0.8 mmol/L 0.5-2.2 (BEAKER) (test code = 2874) Bonding Machine Operator ID - DBCBC (HEMOGRAM ONLY)2019-10-20 04:53:00 Test Item Value Reference Range Interpretation Comments WHITE BLOOD CELL COUNT (BEAKER) 26.2 K/ L 3.5-10.5 H (test code = 775) RED BLOOD CELL COUNT (BEAKER) 4.60 M/ L 4.63-6.08 L (test code = 761) HEMOGLOBIN (BEAKER) (test code = 13.1 GM/DL 13.7-17.5 L 410) HEMATOCRIT (BEAKER) (test code = 40.1 % 40.1-51.0 411) MEAN CORPUSCULAR VOLUME (BEAKER) 87.2 fL 79.0-92.2 (test code = 753) MEAN CORPUSCULAR HEMOGLOBIN 28.5 pg 25.7-32.2 (BEAKER) (test code = 751) MEAN CORPUSCULAR HEMOGLOBIN CONC 32.7 GM/DL 32.3-36.5 (BEAKER) (test code = 752) RED CELL DISTRIBUTION WIDTH 14.6 % 11.6-14.4 H (BEAKER) (test code = 412) PLATELET COUNT (BEAKER) (test 354 K/CU MM 150-450 code = 756) MEAN PLATELET VOLUME (BEAKER) 9.7 fL 9.4-12.4 (test code = 754) NUCLEATED RED BLOOD CELLS 0 /100 WBC 0-0 (BEAKER) (test code = 413) BASIC METABOLIC [id number] 01:46:00 Test Item Value Reference Range Interpretation Comments SODIUM (BEAKER) 129 meq/L 136-145 L (test code = 381) POTASSIUM (BEAKER) 4.9 meq/L 3.5-5.1 (test code = 379) CHLORIDE (BEAKER) 98 meq/L 98-107 (test code = 382) CO2 (BEAKER) (test 23 meq/L 22-29 code = 355) BLOOD UREA NITROGEN 13 mg/dL 7-21 (BEAKER) (test code = 354) CREATININE (BEAKER) 0.88 mg/dL 0.57-1.25 (test code = 358) GLUCOSE RANDOM 150 mg/dL 70-105 H (BEAKER) (test code = 652) CALCIUM (BEAKER) 8.1 mg/dL 8.4-10.2 L (test code = 697) EGFR (BEAKER) (test 135 mL/min/1.73 ESTIM ATED GFR IS code = 1092) sq m NOT ACCURATE CREATININE CLEARANCE IN PREDICTING GLOMERULAR FILTRATION RATE . ESTIMATED GFR I S NOT APPLICABLE FOR DIALYSIS PATIEN TS. Bonding Machine Operator ID - [id number], CHEST, 1 VIEW, NON [id number] 01:46:00Reason for exam:- >intubated, resp insuffciencyShould this be performed at the bedside?->Yes FINAL REPORT RAD, CHEST, 1 VIEW, NON DEPT INDICATION: intubated, resp insuffciency COMPARISON: Prior day's exam FINDINGS: Portable frontal view of the chest. IMPRESSION: Support Lines: Stable. Lungs and pleura: Unchanged airspace and pleural opacities. No pneumothorax.Heart and mediastinum: Stable contours. Additional findings: None. Signed: Rona Irwin Verified Date/Time: 10/20/2019 01:46:33 LACTIC ACID, [id number] 01:29:00 Test Item Value Reference Range Interpretation Comments LACTATE BLOOD 1.3 mmol/L 0.5-2.2 Specimen sligh tly ARTERIAL (2) (BEAKER) hemoly zed (test code = 2874) Bonding Machine Operator ID - [id number] GAS, [id number] 00:59:00 Test Item Value Reference Range Interpretation Comments PH ARTERIAL (BEAKER) (test code = 7.43 7.35-7.45 383) PCO2 ARTERIAL (BEAKER) (test code 37 mmHg 35-45 = 384) PO2 ARTERIAL (BEAKER) (test code = 164 mmHg 80-90 H 385) O2 SATURATION ARTERIAL (BEAKER) 99.1 % 96.0-97.0 H (test code = 386) HCO3 ARTERIAL (BEAKER) (test code 24 mmol/L 21-29 = 388) BASE EXCESS ARTERIAL (BEAKER) 0.8 mmol/L -2.0-3.0 (test code = 387) PATIENT TEMPERATURE (BEAKER) (test 38.7 C code = 1818) FIO2 (BEAKER) (test code = 1819) 40.0 % HEMOGLOBIN AND [id number] 00:58:00 Test Item Value Reference Range Interpretation Comments HEMOGLOBIN (BEAKER) (test code = 14.1 GM/DL 13.7-17.5 410) HEMATOCRIT (BEAKER) (test code = 42.8 % 40.1-51.0 411) Bonding Machine Operator ID - [id number](CELLAVISION MANUAL DIFF)2019-10-19 19:36:00 Test Item Value Reference Range Interpretation Comments NEUTROPHILS - REL 80 % (CELLAVISION)(BEAKER) (test code = 2816) LYMPHOCYTES - REL 2 % (CELLAVISION)(BEAKER) (test code = 2817) MONOCYTES - REL 7 % (CELLAVISION)(BEAKER) (test code = 2818) BANDS - REL (CELLAVISION)(BEAKER) 10 % 0-10 (test code = 2826) ATYPICAL LYMPHOCYTES - REL 1 % 0-0 H (CELLAVISION)(BEAKER) (test code = 2829) NEUTROPHILS - ABS 16.40 K/ul 1.78-5.38 H (CELLAVISION)(BEAKER) (test code = 2830) LYMPHOCYTES - ABS 0.41 K/ul 1.32-3.57 L (CELLAVISION)(BEAKER) (test code = 2831) MONOCYTES - ABS 1.44 K/uL 0.30-0.82 H (CELLAVISION)(BEAKER) (test code = 2832) BANDS - ABS (CELLAVISION)(BEAKER) 2.05 K/uL 0.00-0.80 H (test code = 2840) ATYPICAL LYMPHOCYTES - ABS 0.21 K/uL 0.00-0.00 H (CELLAVISION)(BEAKER) (test code = 2858) TOTAL COUNTED (BEAKER) (test code 100 = 1351) GIANT PLATELETS (BEAKER) (test Present code = 313) VACUOLATED NEUTROPHILS (BEAKER) Present (test code = 483) POIKILOCYTES (BEAKER) (test code = 1+ few 966) ROULEAUX (BEAKER) (test code = 1+ few 763) OVALOCYTES (BEAKER) (test code = 1+ few 477) ARTIFACT (CELLAVISION)(BEAKER) Present (test code = 3432) PLATELET CONCENTRATION Adequate (CELLAVISION)(BEAKER) (test code = 3438) Bonding Machine Operator ID - Marshall comments: Slide comments:TSH/FREE T4 IF INDICATED 2019-10-19 19:26:00 Test Item Value Reference Range Interpretation Comments THYROID STIMULATING HORMONE 1.733 uIU/mL 0.350-4.940 (BEAKER) (test code = 772) Bonding Machine Operator ID - [id number] 19:04:00 Test Item Value Reference Range Interpretation Comments PHOSPHORUS (BEAKER) (test code = 2.3 mg/dL 2.3-4.7 604) Bonding Machine Operator ID - [id number] 19:04:00 Test Item Value Reference Range Interpretation Comments MAGNESIUM (BEAKER) (test code = 1.7 mg/dL 1.6-2.6 627) Bonding Machine Operator ID - DBHEPATIC FUNCTION [id number] 19:04:00 Test Item Value Reference Range Interpretation Comments TOTAL PROTEIN (BEAKER) (test code = 5.1 gm/dL 6.0-8.3 L 770) ALBUMIN (BEAKER) (test code = 1145) 2.4 g/dL 3.5-5.0 L BILIRUBIN TOTAL (BEAKER) (test code 1.4 mg/dL 0.2-1.2 H = 377) BILIRUBIN DIRECT (BEAKER) (test 1.0 mg/dL 0.1-0.5 H code = 706) ALKALINE PHOSPHATASE (BEAKER) (test 70 U/L 40-150 code = 346) AST (SGOT) (BEAKER) (test code = 23 U/L 5-34 353) ALT (SGPT) (BEAKER) (test code = 44 U/L 6-55 347) Bonding Machine Operator ID - DBBASIC METABOLIC [id number] 19:04:00 Test Item Value Reference Range Interpretation Comments SODIUM (BEAKER) 131 meq/L 136-145 L (test code = 381) POTASSIUM (BEAKER) 4.0 meq/L 3.5-5.1 (test code = 379) CHLORIDE (BEAKER) 104 meq/L 98-107 (test code = 382) CO2 (BEAKER) (test 22 meq/L 22-29 code = 355) BLOOD UREA NITROGEN 11 mg/dL 7-21 (BEAKER) (test code = 354) CREATININE (BEAKER) 0.66 mg/dL 0.57-1.25 (test code = 358) GLUCOSE RANDOM 107 mg/dL 70-105 H (BEAKER) (test code = 652) CALCIUM (BEAKER) 6.3 mg/dL 8.4-10.2 L (test code = 697) EGFR (BEAKER) (test 188 mL/min/1.73 ESTIM ATED GFR IS code = 1092) sq m NOT ACCURATE CREATININE CLEARANCE IN PREDICTING GLOMERULAR FILTRATION RATE . ESTIMATED GFR I S NOT APPLICABLE FOR DIALYSIS PATIEN TS. Bonding Machine Operator ID - DBPROTHROMBIN TIME/[id number] 18:54:00 Test Item Value Reference Range Interpretation Comments PROTIME (BEAKER) (test code = 14.8 seconds 11.9-14.2 H 759) INR (BEAKER) (test code = 370) 1.2 <=5.9 Effective 08/23/2018: PT Reference Range ChangeNew: 11.9-14.2 Previous: 11.7- 14.7RECOMMENDED COUMADIN/WARFARIN INR THERAPY RANGESSTANDARD DOSE: 2.0-3.0 Includes: PROPHYLAXIS for venous thrombosis, systemic embolization; TREATMENT for venous thrombosis and/or pulmonary embolus.HIGH RISK: Target INR is2.5-3.5 for patients wiht mechanical heart valves.[id number] 18:54:00 Test Item Value Reference Range Interpretation Comments FIBRINOGEN LEVEL (BEAKER) (test 487 mg/dl 225-434 H code = 658) [id number] 18:54:00 Test Item Value Reference Range Interpretation Comments PARTIAL THROMBOPLASTIN TIME 27.5 seconds 22.5-36.0 (BEAKER) (test code = 760) CBC W/PLT COUNT & AUTO [id number] 18:50:00 Test Item Value Reference Range Interpretation Comments WHITE BLOOD CELL COUNT (BEAKER) 20.5 K/ L 3.5-10.5 H (test code = 775) RED BLOOD CELL COUNT (BEAKER) 4.11 M/ L 4.63-6.08 L (test code = 761) HEMOGLOBIN (BEAKER) (test code = 11.7 GM/DL 13.7-17.5 L 410) HEMATOCRIT (BEAKER) (test code = 35.9 % 40.1-51.0 L 411) MEAN CORPUSCULAR VOLUME (BEAKER) 87.3 fL 79.0-92.2 (test code = 753) MEAN CORPUSCULAR HEMOGLOBIN 28.5 pg 25.7-32.2 (BEAKER) (test code = 751) MEAN CORPUSCULAR HEMOGLOBIN CONC 32.6 GM/DL 32.3-36.5 (BEAKER) (test code = 752) RED CELL DISTRIBUTION WIDTH 14.5 % 11.6-14.4 H (BEAKER) (test code = 412) PLATELET COUNT (BEAKER) (test 304 K/CU MM 150-450 code = 756) MEAN PLATELET VOLUME (BEAKER) 9.5 fL 9.4-12.4 (test code = 754) NUCLEATED RED BLOOD CELLS 0 /100 WBC 0-0 (BEAKER) (test code = 413) NEUTROPHILS RELATIVE PERCENT 78 % (BEAKER) (test code = 429) LYMPHOCYTES RELATIVE PERCENT 9 % (BEAKER) (test code = 430) MONOCYTES RELATIVE PERCENT 12 % (BEAKER) (test code = 431) EOSINOPHILS RELATIVE PERCENT 0 % (BEAKER) (test code = 432) BASOPHILS RELATIVE PERCENT 0 % (BEAKER) (test code = 437) NEUTROPHILS ABSOLUTE COUNT 16.04 K/ L 1.78-5.38 H (BEAKER) (test code = 670) LYMPHOCYTES ABSOLUTE COUNT 1.77 K/ L 1.32-3.57 (BEAKER) (test code = 414) MONOCYTES ABSOLUTE COUNT (BEAKER) 2.49 K/ L 0.30-0.82 H (test code = 415) EOSINOPHILS ABSOLUTE COUNT 0.00 K/ L 0.04-0.54 L (BEAKER) (test code = 416) BASOPHILS ABSOLUTE COUNT (BEAKER) 0.03 K/ L 0.01-0.08 (test code = 417) IMMATURE GRANULOCYTES-RELATIVE 1 % 0-1 PERCENT (BEAKER) (test code = 2801) BLOOD GAS, [id number] 18:29:00 Test Item Value Reference Range Interpretation Comments PH ARTERIAL (BEAKER) (test code = 7.44 7.35-7.45 383) PCO2 ARTERIAL (BEAKER) (test code 31 mmHg 35-45 L = 384) PO2 ARTERIAL (BEAKER) (test code 197 mmHg 80-90 H = 385) O2 SATURATION ARTERIAL (BEAKER) 99.4 % 96.0-97.0 H (test code = 386) HCO3 ARTERIAL (BEAKER) (test code 20 mmol/L 21-29 L = 388) BASE EXCESS ARTERIAL (BEAKER) -3.0 mmol/L -2.0-3.0 L (test code = 387) PATIENT TEMPERATURE (BEAKER) 37.2 C (test code = 1818) CALCIUM, [id number] 18:29:00 Test Item Value Reference Range Interpretation Comments CALCIUM IONIZED (BEAKER) (test 1.01 mmol/L 1.12-1.27 L code = 698) PH, BLOOD (BEAKER) (test code = 7.45 1810) RAD, CHEST, 1 VIEW, NON [id number] 16:32:00Reason for exam:->post intubationShould this be performed at the bedside?->YesFINAL REPORT . Chest dated 10/19/2019 COMPARISON: Same day Clinical Information : post intubation Comment: Heart is enlarged. Pulmonary vasculature is indistinct. Interstitial disease is seen bilaterally suggestive of vascular congestion or pulmonary edema. No pleural effusion or pneumothorax is seen. Endotracheal tube is present with tip seen approximately 3 cm above the jimmy. Impression: Congestive failure. Signed: Esperanza Riddle Verified Date/Time: 10/19/2019 16:32:05 Reading Location: [address] Consult Reading Room -COV2/RT-PCR ([facility])2019-10-19 10:51:00 Test Item Value Reference Range Interpretation Comments SARS-COV2/RT-PCR (test code Negative Not Detected, Negative, = [id number]) See external report for linked test SARS-COV-2 PERFORMING LAB [facility] (test code = 0391189) Negative results do not preclude SARS-CoV-2 infection and should not be used as the sole basis for patient management decisions. Negative results must be combined with clinical observations, patient history, and epidemiological information. A false negative result may occur if a specimen is improperly collected, transported or handled.The limit of detection for this assay is 250 copies/mL.This SARS CoV-2 test is a rapid, real-time RT-PCR test intended for the qualitative detection of nucleic acid from SARS-CoV-2 in a nasopharyngeal swab specimen collected from individuals suspected of COVID-19 by their healthcare provider.This test has not been Food and Drug Administration (FDA) cleared or approved and has been authorized by FDA under an Emergency Use Authorization (EUA). This EUA will be effective until the declaration that circumstances exist justifying the authorization of the emergency use of in vitro diagnostic tests for detection and/or diagnosis of COVID-19 is terminated under Section 564(b)(2) of the Act or the EUA is revoked under Section 564(g) of the Act.Fact Sheet for Healthcare Pro viders:https://www.CloudCar.GogoCoin/Documents/Xpert%20Xpress%20SARS%20CoV-2/Fact%20Sh eets/302-3802%56ZPZZ-TOW-5%20HEALTHCARE%20PROVIDERS%20FACT%20SHEET.pdfFact Sheet for Healthcare Patients:https://www.Nokter/Documents/Xpert%20Xpress%20SARS%20CoV-2/Fact%20Sheets/302-3801%20SARS-COV -2%20PATIENT%20FACT%20SHEET.pdfPerforming Laboratory:[address] [place], [place] [address]KIKOGCD, [id number] 10:02:00 Test Item Value Reference Range Interpretation Comments CALCIUM IONIZED (BEAKER) (test 0.72 mmol/L 1.12-1.27 LL code = 698) PH, BLOOD (BEAKER) (test code = 7.39 1810) POTASSIUM-STAT [id number] 10:02:00 Test Item Value Reference Range Interpretation Comments POTASSIUM (BEAKER) (test code = 2.4 meq/L 3.6-5.5 LL 379) BLOOD GAS, [id number] 09:57:00 Test Item Value Reference Range Interpretation Comments PH ARTERIAL (BEAKER) (test code = 7.39 7.35-7.45 383) PCO2 ARTERIAL (BEAKER) (test code 29 mmHg 35-45 L = 384) PO2 ARTERIAL (BEAKER) (test code 210 mmHg 80-90 H = 385) O2 SATURATION ARTERIAL (BEAKER) 99.4 % 96.0-97.0 H (test code = 386) HCO3 ARTERIAL (BEAKER) (test code 17 mmol/L 21-29 L = 388) BASE EXCESS ARTERIAL (BEAKER) -6.8 mmol/L -2.0-3.0 L (test code = 387) PATIENT TEMPERATURE (BEAKER) 37.0 C (test code = 1818) FIO2 (BEAKER) (test code = 1819) 90.0 % SODIUM NA-STAT [id number] 09:57:00 Test Item Value Reference Range Interpretation Comments SODIUM (BEAKER) (test code = 381) 132 meq/L 136-145 L HGB/HCT (H&H) - STAT [id number] 09:57:00 Test Item Value Reference Range Interpretation Comments HEMOGLOBIN (BEAKER) (test code = 9.1 g/dL 13.0-16.8 L 410) HEMATOCRIT (BEAKER) (test code = 27.0 % 40.0-50.0 L 411) PH, [id number] 09:55:00 Test Item Value Reference Range Interpretation Comments PH ARTERIAL (BEAKER) (test code = 383) 7.39 7.35-7.45 GLUCOSE-STAT [id number] 09:55:00 Test Item Value Reference Range Interpretation Comments GLUCOSE RANDOM (BEAKER) (test code = 75 mg/dL 70-110 652) RAD, CHEST, 1 VIEW, NON [id number] 09:14:00Reason for exam:->de sat post intubationShould this be performed at the bedside?->YesFINAL REPORT RAD, CHEST, 1 VIEW, NON DEPT INDICATION: de sat post intubation C OMPARISON: None FINDINGS: Portable frontal view of the chest. IMPRESSION: Support Lines: Endotracheal tube terminating 4.6 cm above the jimmy. Lungs and pleura: Hypoinflated lungs without consolidation or effusion. No pneumothorax.Heart and mediastinum: Prominent cardiac size, likely partially magnified by technique.Additional findings: None. Signed: JR Wright Robert MDReport Verified Date/Time: 10/19/2019 09:14:19 Reading Location: [facility] Radiology Reading Room Electronicallysigned by: JOELLE WRIGHT on 10/19/2019 09:14 [id number] 05:06:00 Test Item Value Reference Range Interpretation Comments PHOSPHORUS (BEAKER) (test code = 2.4 mg/dL 2.3-4.7 604) Bonding Machine Operator ID - PIAYA [id number] 05:06:00 Test Item Value Reference Range Interpretation Comments MAGNESIUM (BEAKER) (test code = 2.0 mg/dL 1.6-2.6 627) Bonding Machine Operator EUGENE ROLDAN LBASIC METABOLIC [id number] 05:06:00 Test Item Value Reference Range Interpretation Comments SODIUM (BEAKER) 127 meq/L 136-145 L (test code = 381) POTASSIUM (BEAKER) 4.0 meq/L 3.5-5.1 (test code = 379) CHLORIDE (BEAKER) 93 meq/L 98-107 L (test code = 382) CO2 (BEAKER) (test 25 meq/L 22-29 code = 355) BLOOD UREA NITROGEN 13 mg/dL 7-21 (BEAKER) (test code = 354) CREATININE (BEAKER) 0.77 mg/dL 0.57-1.25 (test code = 358) GLUCOSE RANDOM 134 mg/dL 70-105 H (BEAKER) (test code = 652) CALCIUM (BEAKER) 8.1 mg/dL 8.4-10.2 L (test code = 697) EGFR (BEAKER) (test 158 mL/min/1.73 ESTIM ATED GFR IS code = 1092) sq m NOT ACCURATE CREATININE CLEARANCE IN PREDICTING GLOMERULAR FILTRATION RATE . ESTIMATED GFR I S NOT APPLICABLE FOR DIALYSIS PATIEN TS. Bonding Machine Operator ID Carter ROLDAN LHEPATIC FUNCTION [id number] 05:06:00 Test Item Value Reference Range Interpretation Comments TOTAL PROTEIN (BEAKER) (test code = 6.4 gm/dL 6.0-8.3 770) ALBUMIN (BEAKER) (test code = 1145) 3.0 g/dL 3.5-5.0 L BILIRUBIN TOTAL (BEAKER) (test code 1.8 mg/dL 0.2-1.2 H = 377) BILIRUBIN DIRECT (BEAKER) (test 1.3 mg/dL 0.1-0.5 H code = 706) ALKALINE PHOSPHATASE (BEAKER) (test 77 U/L 40-150 code = 346) AST (SGOT) (BEAKER) (test code = 18 U/L 5-34 353) ALT (SGPT) (BEAKER) (test code = 68 U/L 6-55 H 347) Bonding Machine Operator ID Carter ROLDAN [id number] 05:06:00 Test Item Value Reference Range Interpretation Comments LIPASE (BEAKER) (test code = 749) 50 U/L 8-78 Bonding Machine Operator ID - JAMAR LCBC (HEMOGRAM ONLY)2019-10-19 04:09:00 Test Item Value Reference Range Interpretation Comments WHITE BLOOD CELL COUNT (BEAKER) 24.1 K/ L 3.5-10.5 H (test code = 775) RED BLOOD CELL COUNT (BEAKER) 4.44 M/ L 4.63-6.08 L (test code = 761) HEMOGLOBIN (BEAKER) (test code = 12.8 GM/DL 13.7-17.5 L 410) HEMATOCRIT (BEAKER) (test code = 38.7 % 40.1-51.0 L 411) MEAN CORPUSCULAR VOLUME (BEAKER) 87.2 fL 79.0-92.2 (test code = 753) MEAN CORPUSCULAR HEMOGLOBIN 28.8 pg 25.7-32.2 (BEAKER) (test code = 751) MEAN CORPUSCULAR HEMOGLOBIN CONC 33.1 GM/DL 32.3-36.5 (BEAKER) (test code = 752) RED CELL DISTRIBUTION WIDTH 14.2 % 11.6-14.4 (BEAKER) (test code = 412) PLATELET COUNT (BEAKER) (test 313 K/CU MM 150-450 code = 756) MEAN PLATELET VOLUME (BEAKER) 9.5 fL 9.4-12.4 (test code = 754) NUCLEATED RED BLOOD CELLS 0 /100 WBC 0-0 (BEAKER) (test code = 413) HEPATIC FUNCTION [id number] 23:09:00 Test Item Value Reference Range Interpretation Comments TOTAL PROTEIN (BEAKER) (test code = 6.3 gm/dL 6.0-8.3 770) ALBUMIN (BEAKER) (test code = 1145) 3.0 g/dL 3.5-5.0 L BILIRUBIN TOTAL (BEAKER) (test code 1.8 mg/dL 0.2-1.2 H = 377) BILIRUBIN DIRECT (BEAKER) (test 1.3 mg/dL 0.1-0.5 H code = 706) ALKALINE PHOSPHATASE (BEAKER) (test 78 U/L 40-150 code = 346) AST (SGOT) (BEAKER) (test code = 19 U/L 5-34 353) ALT (SGPT) (BEAKER) (test code = 73 U/L 6-55 H 347) Bonding Machine Operator ID - DBOperator ID - JAMAR LBASIC METABOLIC [id number] 23:09:00 Test Item Value Reference Range Interpretation Comments SODIUM (BEAKER) 127 meq/L 136-145 L (test code = 381) POTASSIUM (BEAKER) 4.4 meq/L 3.5-5.1 (test code = 379) CHLORIDE (BEAKER) 94 meq/L 98-107 L (test code = 382) CO2 (BEAKER) (test 26 meq/L 22-29 code = 355) BLOOD UREA NITROGEN 14 mg/dL 7-21 (BEAKER) (test code = 354) CREATININE (BEAKER) 0.79 mg/dL 0.57-1.25 (test code = 358) GLUCOSE RANDOM 126 mg/dL 70-105 H (BEAKER) (test code = 652) CALCIUM (BEAKER) 8.2 mg/dL 8.4-10.2 L (test code = 697) EGFR (BEAKER) (test 153 mL/min/1.73 ESTIM ATED GFR IS code = 1092) sq m NOT ACCURATE CREATININE CLEARANCE IN PREDICTING GLOMERULAR FILTRATION RATE . ESTIMATED GFR I S NOT APPLICABLE FOR DIALYSIS PATIEN TS. Bonding Machine Operator ID - DBFL, [id number] 15:35:00Reason for exam:->choledocholithiasisFluoroscopic unit utilized for a procedure performed in the OR. No interpretation was requested. Refer to the operative report for findings. Refer to PACS for patient radiation dose information. [id number] 07:26:00 Test Item Value Reference Range Interpretation Comments PHOSPHORUS (BEAKER) (test code = 2.4 mg/dL 2.3-4.7 604) Bonding Machine Operator ID - PIAYA [id number] 07:26:00 Test Item Value Reference Range Interpretation Comments MAGNESIUM (BEAKER) (test code = 1.8 mg/dL 1.6-2.6 627) Bonding Machine Operator ID - PIAYA LBASIC METABOLIC [id number] 07:26:00 Test Item Value Reference Range Interpretation Comments SODIUM (BEAKER) 125 meq/L 136-145 L (test code = 381) POTASSIUM (BEAKER) 4.8 meq/L 3.5-5.1 (test code = 379) CHLORIDE (BEAKER) 93 meq/L 98-107 L (test code = 382) CO2 (BEAKER) (test 27 meq/L 22-29 code = 355) BLOOD UREA NITROGEN 14 mg/dL 7-21 (BEAKER) (test code = 354) CREATININE (BEAKER) 0.85 mg/dL 0.57-1.25 (test code = 358) GLUCOSE RANDOM 142 mg/dL 70-105 H (BEAKER) (test code = 652) CALCIUM (BEAKER) 8.5 mg/dL 8.4-10.2 (test code = 697) EGFR (BEAKER) (test 141 mL/min/1.73 ESTIM ATED GFR IS code = 1092) sq m NOT ACCURATE CREATININE CLEARANCE IN PREDICTING GLOMERULAR FILTRATION RATE . ESTIMATED GFR I S NOT APPLICABLE FOR DIALYSIS PATIEN TS. Bonding Machine Operator ID - JAMAR LSpecimen slightly ictericHEPATIC FUNCTION [id number] 07:26:00 Test Item Value Reference Range Interpretation Comments TOTAL PROTEIN (BEAKER) (test code = 6.6 gm/dL 6.0-8.3 770) ALBUMIN (BEAKER) (test code = 1145) 3.2 g/dL 3.5-5.0 L BILIRUBIN TOTAL (BEAKER) (test code 2.6 mg/dL 0.2-1.2 H = 377) BILIRUBIN DIRECT (BEAKER) (test 1.7 mg/dL 0.1-0.5 H code = 706) ALKALINE PHOSPHATASE (BEAKER) (test 92 U/L 40-150 code = 346) AST (SGOT) (BEAKER) (test code = 24 U/L 5-34 353) ALT (SGPT) (BEAKER) (test code = 99 U/L 6-55 H 347) Bonding Machine Operator ID - JAMAR LSpecimen slightly [id number] 07:26:00 Test Item Value Reference Range Interpretation Comments LIPASE (BEAKER) (test code = 749) 157 U/L 8-78 H Bonding Machine Operator ID - JAMAR LSpecimen slightly ictericPROTHROMBIN [id number] 04:23:00 Test Item Value Reference Range Interpretation Comments PROTIME (BEAKER) (test code = 15.1 seconds 11.9-14.2 H 759) INR (BEAKER) (test code = 370) 1.2 <=5.9 Effective 08/23/2018: PT Reference Range ChangeNew: 11.9-14.2 Previous: 11.7- 14.7RECOMMENDED COUMADIN/WARFARIN INR THERAPY RANGESSTANDARD DOSE: 2.0-3.0 Includes: PROPHYLAXIS for venous thrombosis, systemic embolization; TREATMENT for venous thrombosis and/or pulmonary embolus.HIGH RISK: Target INR is2.5-3.5 for patients wiht mechanical heart valves.CBC (HEMOGRAM ONLY)2019-10-18 04:15:00 Test Item Value Reference Range Interpretation Comments WHITE BLOOD CELL COUNT (BEAKER) 26.2 K/ L 3.5-10.5 H (test code = 775) RED BLOOD CELL COUNT (BEAKER) 5.16 M/ L 4.63-6.08 (test code = 761) HEMOGLOBIN (BEAKER) (test code = 14.8 GM/DL 13.7-17.5 410) HEMATOCRIT (BEAKER) (test code = 45.3 % 40.1-51.0 411) MEAN CORPUSCULAR VOLUME (BEAKER) 87.8 fL 79.0-92.2 (test code = 753) MEAN CORPUSCULAR HEMOGLOBIN 28.7 pg 25.7-32.2 (BEAKER) (test code = 751) MEAN CORPUSCULAR HEMOGLOBIN CONC 32.7 GM/DL 32.3-36.5 (BEAKER) (test code = 752) RED CELL DISTRIBUTION WIDTH 14.3 % 11.6-14.4 (BEAKER) (test code = 412) PLATELET COUNT (BEAKER) (test 318 K/CU MM 150-450 code = 756) MEAN PLATELET VOLUME (BEAKER) 10.0 fL 9.4-12.4 (test code = 754) NUCLEATED RED BLOOD CELLS 0 /100 WBC 0-0 (BEAKER) (test code = 413) PROTHROMBIN [id number] 06:00:00 Test Item Value Reference Range Interpretation Comments PROTIME (BEAKER) (test code = 14.9 seconds 11.9-14.2 H 759) INR (BEAKER) (test code = 370) 1.2 <=5.9 Effective 08/23/2018: PT Reference Range ChangeNew: 11.9-14.2 Previous: 11.7- 14.7RECOMMENDED COUMADIN/WARFARIN INR THERAPY RANGESSTANDARD DOSE: 2.0-3.0 Includes: PROPHYLAXIS for venous thrombosis, systemic embolization; TREATMENT for venous thrombosis and/or pulmonary embolus.HIGH RISK: Target INR is2.5-3.5 for patients wiht mechanical heart valves.[id number] 05:40:00 Test Item Value Reference Range Interpretation Comments PHOSPHORUS (BEAKER) (test code = 3.1 mg/dL 2.3-4.7 604) Bonding Machine Operator ID - [id number] 05:40:00 Test Item Value Reference Range Interpretation Comments MAGNESIUM (BEAKER) (test code = 1.8 mg/dL 1.6-2.6 627) Bonding Machine Operator ID - BSBASIC METABOLIC [id number] 05:40:00 Test Item Value Reference Range Interpretation Comments SODIUM (BEAKER) 130 meq/L 136-145 L (test code = 381) POTASSIUM (BEAKER) 4.4 meq/L 3.5-5.1 (test code = 379) CHLORIDE (BEAKER) 97 meq/L 98-107 L (test code = 382) CO2 (BEAKER) (test 25 meq/L 22-29 code = 355) BLOOD UREA NITROGEN 15 mg/dL 7-21 (BEAKER) (test code = 354) CREATININE (BEAKER) 1.05 mg/dL 0.57-1.25 (test code = 358) GLUCOSE RANDOM 143 mg/dL 70-105 H (BEAKER) (test code = 652) CALCIUM (BEAKER) 8.9 mg/dL 8.4-10.2 (test code = 697) EGFR (BEAKER) (test 110 mL/min/1.73 ESTIM ATED GFR IS code = 1092) sq m NOT ACCURATE CREATININE CLEARANCE IN PREDICTING GLOMERULAR FILTRATION RATE . ESTIMATED GFR I S NOT APPLICABLE FOR DIALYSIS PATIEN TS. Bonding Machine Operator ID - BSSpecimen slightly ictericHEPATIC FUNCTION [id number] 05:40:00 Test Item Value Reference Range Interpretation Comments TOTAL PROTEIN (BEAKER) (test code = 6.9 gm/dL 6.0-8.3 770) ALBUMIN (BEAKER) (test code = 1145) 3.4 g/dL 3.5-5.0 L BILIRUBIN TOTAL (BEAKER) (test code 3.9 mg/dL 0.2-1.2 H = 377) BILIRUBIN DIRECT (BEAKER) (test 2.5 mg/dL 0.1-0.5 H code = 706) ALKALINE PHOSPHATASE (BEAKER) (test 124 U/L 40-150 code = 346) AST (SGOT) (BEAKER) (test code = 35 U/L 5-34 H 353) ALT (SGPT) (BEAKER) (test code = 185 U/L 6-55 H 347) Bonding Machine Operator ID - BSSpecimen slightly [id number] 05:40:00 Test Item Value Reference Range Interpretation Comments LIPASE (BEAKER) (test code = 749) 574 U/L 8-78 H Bonding Machine Operator ID - BSSpecimen slightly ictericLACTIC ACID, [id number] 05:26:00 Test Item Value Reference Range Interpretation Comments LACTATE BLOOD VENOUS 1.63 mmol/L 0.50-2.20 Specime n slightly (2) (BEAKER) (test hemolyzed code = 9117) Bonding Machine Operator ID - BSSpecimen slightly ictericCBC (HEMOGRAM ONLY)2019-10-17 05:13:00 Test Item Value Reference Range Interpretation Comments WHITE BLOOD CELL COUNT (BEAKER) 29.5 K/ L 3.5-10.5 H (test code = 775) RED BLOOD CELL COUNT (BEAKER) 5.57 M/ L 4.63-6.08 (test code = 761) HEMOGLOBIN (BEAKER) (test code = 15.9 GM/DL 13.7-17.5 410) HEMATOCRIT (BEAKER) (test code = 49.1 % 40.1-51.0 411) MEAN CORPUSCULAR VOLUME (BEAKER) 88.2 fL 79.0-92.2 (test code = 753) MEAN CORPUSCULAR HEMOGLOBIN 28.5 pg 25.7-32.2 (BEAKER) (test code = 751) MEAN CORPUSCULAR HEMOGLOBIN CONC 32.4 GM/DL 32.3-36.5 (BEAKER) (test code = 752) RED CELL DISTRIBUTION WIDTH 14.4 % 11.6-14.4 (BEAKER) (test code = 412) PLATELET COUNT (BEAKER) (test 324 K/CU MM 150-450 code = 756) MEAN PLATELET VOLUME (BEAKER) 9.6 fL 9.4-12.4 (test code = 754) NUCLEATED RED BLOOD CELLS 0 /100 WBC 0-0 (BEAKER) (test code = 413) FL, [id number] 17:10:00INTRA OP IMAGING Reason for exam:->abnormal imagingFluoroscopic unit utilized for a procedure performed in the OR. No interpretation was requested. Refer to the operative report for findings. Refer to PACS for patient radiation dose information.[id number] 11:10:00 Test Item Value Reference Range Interpretation Comments PROCALCITONIN (BEAKER) (test code 0.78 ng/mL <0.05 H = 3036) SEPSIS RISK (ng/mL)Low: 0.05-0.50Intermediate: 0.51-2.00High: >=2.01LACTIC ACID, [id number] 10:39:00 Test Item Value Reference Range Interpretation Comments LACTATE BLOOD VENOUS 1.72 mmol/L 0.50-2.20 Specime n slightly (2) (BEAKER) (test hemolyzed code = 2872) Bonding Machine Operator ID - LMSpecimen slightly ictericSARS-COV2/RT-PCR ([facility]) 2019-10-16 10:08:00 Test Item Value Reference Range Interpretation Comments SARS-COV2/RT-PCR (test Negative Not Detected, Negative, code = 1046298) See external report for linked test SARS-COV-2 PERFORMING LAB [facility] (test code = 5561693) Negative result for this test determines that SARS-CoV-2 RNA was not present in the specimen above the Limit of Detection (LOD). However, Negative results do not preclude SARS-CoV-2 infection and should not be used as the sole basis for treatment or patient management decisions. Negative results mustbe combined with clinical observations, patient history, and epidemiological information. A false negative result may occur if a specimen is improperly collected, transported or handled. A false negative result should be considered if patient's recent exposures or clinical presentation indicate that COVID-19 (SARS-CoV-2) is likely and diagnostic tests for other causes of illness are negative. Re-testing should be considered in cases of suspected false negatives.The limit of detection for this assay is 800 copies/mL.This SARS CoV-2 test is a real-time RT-PCR test intended for the qualitative detection of nucleic acid from SARS-CoV-2 in a nasopharyngeal swab specimen collected from individuals suspected of COVID-19 by their healthcare provider.This test has not been Food and Drug Administration (FDA) cleared or approved. This is a modified version of an approved Emergency Use Authorization (EUA) and is in the process of review by the FDA. Once authorized by the FDA, the issued EUA will be effective until the declaration that circumstances exist justifying the authorization of the emergency use of in vitro diagnostic tests for detection and/or diagnosis of COVID-19 is terminated under Section 564(b)(2) of the Act or the EUA is revoked under Section 564(g) of the Act.Fact Sheet for Healthcare Providers:https://www.[employer]apMe/sites/default/files/product/documents/Fact_Shee v_EI_Utjsyavan_Kgdc_DNQY-NmW-2.pdfFact Sheet for Healthcare Patients:https://www.[employer]/sites/default/files/product/ documents/Ggjm_Fmnlc_Ttxqcomm_Gdqu_QRFH-FzN-4.pdfPerforming Laboratory:[facility], [place] [address]AMBZNKJDJMH TIME/INR 2019-10-16 07:12:00 Test Item Value Reference Range Interpretation Comments PROTIME (BEAKER) (test code = 13.8 seconds 11.9-14.2 759) INR (BEAKER) (test code = 370) 1.1 <=5.9 Effective 08/23/2018: PT Reference Range ChangeNew: 11.9-14.2 Previous: 11.7- 14.7RECOMMENDED COUMADIN/WARFARIN INR THERAPY RANGESSTANDARD DOSE: 2.0-3.0 Includes: PROPHYLAXIS for venous thrombosis, systemic embolization; TREATMENT for venous thrombosis and/or pulmonary embolus.HIGH RISK: Target INR is2.5-3.5 for patients wiht mechanical heart valves.[id number] 05:53:00 Test Item Value Reference Range Interpretation Comments PHOSPHORUS (BEAKER) (test code = 4.0 mg/dL 2.3-4.7 604) Bonding Machine Operator ID Carter PAL [id number] 05:53:00 Test Item Value Reference Range Interpretation Comments MAGNESIUM (BEAKER) (test code = 1.7 mg/dL 1.6-2.6 627) Bonding Machine Operator ID Carter PAL WBASIC METABOLIC [id number] 05:53:00 Test Item Value Reference Range Interpretation Comments SODIUM (BEAKER) 133 meq/L 136-145 L (test code = 381) POTASSIUM (BEAKER) 4.0 meq/L 3.5-5.1 (test code = 379) CHLORIDE (BEAKER) 99 meq/L 98-107 (test code = 382) CO2 (BEAKER) (test 24 meq/L 22-29 code = 355) BLOOD UREA NITROGEN 11 mg/dL 7-21 (BEAKER) (test code = 354) CREATININE (BEAKER) 1.04 mg/dL 0.57-1.25 (test code = 358) GLUCOSE RANDOM 159 mg/dL 70-105 H (BEAKER) (test code = 652) CALCIUM (BEAKER) 9.5 mg/dL 8.4-10.2 (test code = 697) EGFR (BEAKER) (test 112 mL/min/1.73 ESTIM ATED GFR IS code = 1092) sq m NOT ACCURATE CREATININE CLEARANCE IN PREDICTING GLOMERULAR FILTRATION RATE . ESTIMATED GFR I S NOT APPLICABLE FOR DIALYSIS PATIEN TS. Bonding Machine Operator ID Carter PAL WSpecimen moderately ictericHEPATIC FUNCTION [id number] 05:53:00 Test Item Value Reference Range Interpretation Comments TOTAL PROTEIN (BEAKER) (test code = 7.8 gm/dL 6.0-8.3 770) ALBUMIN (BEAKER) (test code = 1145) 3.8 g/dL 3.5-5.0 BILIRUBIN TOTAL (BEAKER) (test code 6.9 mg/dL 0.2-1.2 H = 377) BILIRUBIN DIRECT (BEAKER) (test 4.9 mg/dL 0.1-0.5 H code = 706) ALKALINE PHOSPHATASE (BEAKER) (test 159 U/L 40-150 H code = 346) AST (SGOT) (BEAKER) (test code = 129 U/L 5-34 H 353) ALT (SGPT) (BEAKER) (test code = 346 U/L 6-55 H 347) Bonding Machine Operator ID - DEMARCO Perkins moderately ictericCBC (HEMOGRAM ONLY)2019-10-16 05:21:00 Test Item Value Reference Range Interpretation Comments WHITE BLOOD CELL COUNT (BEAKER) 30.2 K/ L 3.5-10.5 H (test code = 775) RED BLOOD CELL COUNT (BEAKER) 6.12 M/ L 4.63-6.08 H (test code = 761) HEMOGLOBIN (BEAKER) (test code = 17.5 GM/DL 13.7-17.5 410) HEMATOCRIT (BEAKER) (test code = 53.2 % 40.1-51.0 H 411) MEAN CORPUSCULAR VOLUME (BEAKER) 86.9 fL 79.0-92.2 (test code = 753) MEAN CORPUSCULAR HEMOGLOBIN 28.6 pg 25.7-32.2 (BEAKER) (test code = 751) MEAN CORPUSCULAR HEMOGLOBIN CONC 32.9 GM/DL 32.3-36.5 (BEAKER) (test code = 752) RED CELL DISTRIBUTION WIDTH 14.6 % 11.6-14.4 H (BEAKER) (test code = 412) PLATELET COUNT (BEAKER) (test 384 K/CU MM 150-450 code = 756) MEAN PLATELET VOLUME (BEAKER) 9.3 fL 9.4-12.4 L (test code = 754) NUCLEATED RED BLOOD CELLS 0 /100 WBC 0-0 (BEAKER) (test code = 413) PROTHROMBIN [id number] 22:56:00 Test Item Value Reference Range Interpretation Comments PROTIME (BEAKER) (test code = 13.3 seconds 11.9-14.2 759) INR (BEAKER) (test code = 370) 1.0 <=5.9 Effective 08/23/2018: PT Reference Range ChangeNew: 11.9-14.2 Previous: 11.7- 14.7RECOMMENDED COUMADIN/WARFARIN INR THERAPY RANGESSTANDARD DOSE: 2.0-3.0 Includes: PROPHYLAXIS for venous thrombosis, systemic embolization; TREATMENT for venous thrombosis and/or pulmonary embolus.HIGH RISK: Target INR is2.5-3.5 for patients wiht mechanical heart valves.CBC W/PLT COUNT & AUTO [id number] 22:50:00 Test Item Value Reference Range Interpretation Comments WHITE BLOOD CELL COUNT (BEAKER) 26.8 K/ L 3.5-10.5 H (test code = 775) RED BLOOD CELL COUNT (BEAKER) 6.20 M/ L 4.63-6.08 H (test code = 761) HEMOGLOBIN (BEAKER) (test code = 17.7 GM/DL 13.7-17.5 H 410) HEMATOCRIT (BEAKER) (test code = 53.7 % 40.1-51.0 H 411) MEAN CORPUSCULAR VOLUME (BEAKER) 86.6 fL 79.0-92.2 (test code = 753) MEAN CORPUSCULAR HEMOGLOBIN 28.5 pg 25.7-32.2 (BEAKER) (test code = 751) MEAN CORPUSCULAR HEMOGLOBIN CONC 33.0 GM/DL 32.3-36.5 (BEAKER) (test code = 752) RED CELL DISTRIBUTION WIDTH 14.5 % 11.6-14.4 H (BEAKER) (test code = 412) PLATELET COUNT (BEAKER) (test 400 K/CU MM 150-450 code = 756) MEAN PLATELET VOLUME (BEAKER) 8.8 fL 9.4-12.4 L (test code = 754) NUCLEATED RED BLOOD CELLS 0 /100 WBC 0-0 (BEAKER) (test code = 413) NEUTROPHILS RELATIVE PERCENT 91 % (BEAKER) (test code = 429) LYMPHOCYTES RELATIVE PERCENT 2 % (BEAKER) (test code = 430) MONOCYTES RELATIVE PERCENT 7 % (BEAKER) (test code = 431) EOSINOPHILS RELATIVE PERCENT 0 % (BEAKER) (test code = 432) BASOPHILS RELATIVE PERCENT 0 % (BEAKER) (test code = 437) NEUTROPHILS ABSOLUTE COUNT 24.21 K/ L 1.78-5.38 H (BEAKER) (test code = 670) LYMPHOCYTES ABSOLUTE COUNT 0.62 K/ L 1.32-3.57 L (BEAKER) (test code = 414) MONOCYTES ABSOLUTE COUNT (BEAKER) 1.77 K/ L 0.30-0.82 H (test code = 415) EOSINOPHILS ABSOLUTE COUNT 0.00 K/ L 0.04-0.54 L (BEAKER) (test code = 416) BASOPHILS ABSOLUTE COUNT (BEAKER) 0.04 K/ L 0.01-0.08 (test code = 417) IMMATURE GRANULOCYTES-RELATIVE 1 % 0-1 PERCENT (BEAKER) (test code = 2801) [id number] 22:45:00 Test Item Value Reference Range Interpretation Comments PHOSPHORUS (BEAKER) (test code = 3.9 mg/dL 2.3-4.7 604) Bonding Machine Operator ID - [id number] 22:45:00 Test Item Value Reference Range Interpretation Comments MAGNESIUM (BEAKER) (test code = 1.8 mg/dL 1.6-2.6 627) Bonding Machine Operator ID - BSCOMPREHENSIVE METABOLIC [id number] 22:45:00 Test Item Value Reference Range Interpretation Comments TOTAL PROTEIN 8.4 gm/dL 6.0-8.3 H (BEAKER) (test code = 770) ALBUMIN (BEAKER) 4.2 g/dL 3.5-5.0 (test code = 1145) ALKALINE PHOSPHATASE 178 U/L 40-150 H (BEAKER) (test code = 346) BILIRUBIN TOTAL 6.4 mg/dL 0.2-1.2 H (BEAKER) (test code = 377) SODIUM (BEAKER) (test 133 meq/L 136-145 L code = 381) POTASSIUM (BEAKER) 4.6 meq/L 3.5-5.1 (test code = 379) CHLORIDE (BEAKER) 101 meq/L 98-107 (test code = 382) CO2 (BEAKER) (test 20 meq/L 22-29 L code = 355) BLOOD UREA NITROGEN 11 mg/dL 7-21 (BEAKER) (test code = 354) CREATININE (BEAKER) 0.89 mg/dL 0.57-1.25 (test code = 358) GLUCOSE RANDOM 180 mg/dL 70-105 H (BEAKER) (test code = 652) CALCIUM (BEAKER) 9.7 mg/dL 8.4-10.2 (test code = 697) AST (SGOT) (BEAKER) 158 U/L 5-34 H (test code = 353) ALT (SGPT) (BEAKER) 372 U/L 6-55 H (test code = 347) EGFR (BEAKER) (test 133 ESTIMATE D GFR IS code = 1092) mL/min/1.73 sq NOT ACCURA TE m CREATININE CLEARANCE IN PREDICTING GLOMERULAR FILTRATION RATE . ESTIMATED GFR I S NOT APPLICABLE FOR DIALYSIS PATIEN TS. Bonding Machine Operator ID - BSSpecimen moderately ictericBILIRUBIN, [id number] 22:45:00 Test Item Value Reference Range Interpretation Comments BILIRUBIN DIRECT (BEAKER) (test 4.6 mg/dL 0.1-0.5 H code = 706) Bonding Machine Operator ID - [id number] 22:45:00 Test Item Value Reference Range Interpretation Comments LIPASE (BEAKER) (test code = 749) 978 U/L 8-78 H Bonding Machine Operator ID - BSSpecimen moderately fnczbplMjtbfdtipt0256-93-17 08:46:00 Test Item Value Reference Range Interpretation Comments APPEARANCE (test code = Clear Clear 0541881693) COLOR (test code = Yellow Yellow 6272418372) PH (test code = 4.8-8.0 9745177329) SP GRAVITY (test code = 1.003-1.030 5188766999) GLU U QUAL (test code = Normal Normal 2940302019) BLOOD (test code = Negative Negative 4017094581) KETONES (test code = Negative Negative 5140344649) PROTEIN (test code = Negative Negative 2887-8) UROBILIN (test code = 2.0 mg/dL Normal A 0523839501) BILIRUBIN (test code = Negative Negative 9389040553) NITRITE (test code = Negative Negative 8203212007) LEUK JEANNINE (test code = Negative Negative 2341968981) RBC/HPF (test code = <1 See_Comment [Autom ated message] 9930571522) The system maniaTV generated this result transmit maura reference range : 0 - 3 HPF. The refe rence range was not u sed to interpret th is result as normal/abnormal . WBC/HPF (test code = See_Comment H [Autom ated message] 7955945353) The system [employer] generated this result transmit maura reference range : 0 - 5 HPF. The refe rence range was not u sed to interpret th is result as normal/abnormal . BACTERIA (test code = Few Negative A 9904223976) MUCOUS (test code = Slight Negative LPF A 9877744839) SQ EPITH (test code = HPF 8675050528) TRANS EPI (test code = <1 See_Comment [Aut omated message] 1128884755) The system [employer] generated this result transmit maura reference range : <=1 HPF. The refere nce range was not u sed to interpret th is result as normal/abnormal . Lab Interpretation (test Abnormal code = 62183-9) [facility] Metabolic [id number] 08:23:00 Test Item Value Reference Range Interpretation Comments NA (test code = 136 mmol/L 135-145 1654456937) K (test code = 4.0 mmol/L 3.5-5 5888955771) CL (test code = 103 mmol/L 98-108 6687579252) CO2 TOTAL (test code = 24 mmol/L 23-31 9576114457) AGAP (test code = 2-16 8036043753) BUN (test code = 11 mg/dL 7-23 2788911411) GLUCOSE (test code = 125 mg/dL 70-110 H 4814576428) CREATININE (test code = 0.78 mg/dL 0.6-1.25 4989288891) TOTAL BILI (test code = 1.9 mg/dL 0.1-1.1 H 1662457666) CALCIUM (test code = 9.1 mg/dL 8.6-10.6 7749350670) T PROTEIN (test code = 7.9 g/dL 6.3-8.2 9719966543) ALBUMIN (test code = 4.3 g/dL 3.5-5 6084616614) ALK PHOS (test code = 126 U/L 34-122 H 9044839809) ALTv (test code = 161 U/L 5-50 H 1742-6) AST(SGOT) (test code = 198 U/L 13-40 H 2979995891) eGFR Calculation mL/min/1.73m2 (Non-) (test code = 1820938115) eGFR Calculation mL/min/1.73m2 () (test code = 7391568024) MITCH (test code = MITCH) Association of Glomerular Filtration Rate (GFR) and Staging of Kidney Disease* + --+ --+ ------+| GFR (mL/min/1.73 m2) ?| With Kidney Damage ?| ?Without Kidney Damage+ --------+ --------+ +| ?>90 ?| ?Stage one ?| ? Normal ?+ ---+ ---+ -------+| ?60-89 ?| ?Stage two ?| ? Decreased GFR ? + --+ --+ ------+| ?30-59 ?| ?Stage three ?| ? Stage three ? + --+ --+ ------+| ?15-29 ?| ?Stage four ? | ? Stage four ?+ ---+ ---+ -------+| ?<15 (or dialysis) ? ?| ?Stage five ? | ? Stage five ?+ ---+ ---+ -------+ *Each stage assumes the associated GFR level has been in effect for at least three months. ?Stages 1 to 5, with or without kidney disease, indicate chronic kidney disease. Notes: Determination of stages one and two (with eGFR >59mL/min/1.73 m2) requires estimation of kidney damage for at least three months as defined by structural or functional abnormalities of the kidney, manifested by either:Pathological abnormalities or Markers of kidney damage (including abnormalities in the composition of the blood or urine or abnormalities in imaging tests). Lab Interpretation Abnormal (test code = 44475-4) [facility]cosLip[facility], [id number] 08:23:00 Test Item Value Reference Range Interpretation Comments LIPASE (test code = 3677314629) 17 U/L 0-220 Lab Interpretation (test code = Normal 44214-9) [facility]CB WITH [id number] 08:09:00 Test Item Value Reference Range Interpretation Comments WBC (test code = See_Comment H [Automated 6034-2) message] The sy stem which generated this result transmitted reference range : 4.20 - 10.70 10*3/?L. The reference range was not used to interpret this result as normal/abnormal . RBC (test code = See_Comment [Automated 594-0) message] The sy stem which generated this result transmitted reference range : 4.26 - 5.52 10*6/?L. The reference range was not used to interpret this result as normal/abnormal . HGB (test code = 14.2 g/dL 12.2-16.4 718-7) HCT (test code = 43.3 % 38.4-49.3 4544-3) MCV (test code = 86.6 fL 81.7-95.6 787-2) MCH (test code = 28.4 pg 26.1-32.7 785-6) MCHC (test code = 32.8 g/dL 31.2-35 786-4) RDW-SD (test code = 40.7 fL 38.5-51.6 02672-9) RDW-CV (test code = 13.0 % 12.1-15.4 788-0) PLT (test code = See_Comment H [Automated 777-3) message] The sy stem which generated this result transmitted reference range : 150 - 328 10*3/ ?L. The reference r kirby was not used to interpret this result as normal/abnormal . MPV (test code = 8.6 fL 9.8-13 L 41837-8) NRBC/100 WBC (test See_Comment [Automat ed code = 5249792782) message] The system which generated this result transmitted reference range : 0.0 - 10.0 /100 WBCs. The refer ence range was not u sed to interpret th is result as normal/abnormal . NRBC x10^3 (test code <0.01 See_Comment [Auto mated = 5817829136) message] The s ystem which generated this result transmitted reference range : 10*3/?L. The reference range was not used to interpret this result as normal/abnormal . GRAN MAT (NEUT) % 78.6 % (test code = 770-8) IMM GRAN % (test code 0.30 % = 4488281709) LYMPH % (test code = 10.8 % 736-9) MONO % (test code = 7.2 % 5905-5) EOS % (test code = 2.9 % 713-8) BASO % (test code = 0.2 % 706-2) GRAN MAT x10^3(ANC) 9.65 10*3/uL 1.99-6.95 H (test code = 4154881144) IMM GRAN x10^3 (test 0.04 10*3/uL 0-0.06 code = 3221059222) LYMPH x10^3 (test code 1.33 10*3/uL 1.09-3.23 = 731-0) MONO x10^3 (test code 0.88 10*3/uL 0.36-1.02 = 742-7) EOS x10^3 (test code = 0.36 10*3/uL 0.06-0.53 711-2) BASO x10^3 (test code 0.03 10*3/uL 0.01-0.09 = 704-7) Lab Interpretation Abnormal (test code = 29565-0) [facility]
[2021-09-06] MEDS ORDERED: LIDOCAINE 1% 20 ML MDV ONE (08:35)
--- NOTE | 2021-09-06 08:38 | EDPHYS ---
Physician Documentation [facility] Name: Antelmo Vaughn Age: 21 yrs Sex: Male : 2000 Arrival Date: 09/06/2021 Time: 07:43 Bed 11 Private MD: ED Physician Alli Duff HPI: 09/06 08:33 This 21 yrs old Black Male presents to ER via EMS with complaints of Foreign Body In en Ear. 08:33 21-year-old male with no medical history presents to ED with bug in left ear. Patient en reports waking up this morning feeling something in his ear. He reports pain without drainage. No cough, congestion, fever, chills, nausea, vomiting.. Historical: - Allergies: 07:45 No Known Allergies; aa5 - PMHx: 07:45 None; aa5 - PSHx: 08:15 Cholecystectomy; aa5 - Immunization history:: Adult Immunizations unknown. - Social history:: Smoking status: Patient/guardian denies using tobacco. ROS: 08:33 Constitutional: Negative for fever, chills, and weight loss. en 08:33 ENT: Positive for ear pain, Bug in left ear, Negative for drainage from ear(s). 08:33 Respiratory: Negative for cough, shortness of breath. 08:33 Skin: Negative for rash. 08:33 All other systems are negative. Exam: 08:33 Constitutional: This is a well developed, well nourished patient who is awake, alert, en and in no acute distress. 08:33 Constitutional: The patient appears in no acute distress, alert, awake. 08:33 Eyes: Pupils: equal, round, and reactive to light and accomodation, Extraocular movements: intact throughout, Conjunctiva: normal, no exudate, no injection. 08:33 ENT: External ear(s): Ear canal(s): Insect in left external auditory canal. TM partially visualized and intact.. 08:33 Neck: ROM/movement: is normal, is supple, no range of motions limitations, no meningismus. 08:33 Cardiovascular: Rate: normal, Rhythm: regular, Pulses: no pulse deficits are appreciated, Heart sounds: normal, no murmur, no rub, no gallop. 08:33 Respiratory: the patient does not display signs of respiratory distress, Respirations: normal, Breath sounds: are clear throughout, no rales, rhonchi, no stridor, no wheezing. 08:33 Musculoskeletal/extremity: ROM: intact in all extremities, full active range of motion. 08:33 Skin: no rash present. 08:33 Neuro: Orientation: is normal, appropriate for stated age, no acute changes, to person, place \T\ time. 08:33 Psych: Behavior/mood is pleasant, cooperative, Affect is calm. Vital Signs: 07:44 BP 131 / 91; Pulse 80; Resp 18 S; Temp 98.1(TE); Pulse Ox 98% on R/A; Weight 181.44 kg aa5 (R); Height 6 ft. 5 in. (195.58 cm) (R); 07:44 Body Mass Index 47.43 (181.44 kg, 195.58 cm) aa5 Procedures: 08:33 Foreign Body Removal: an insect, from the left ear canal, by lidocaine lavage, normal en saline irrigation. MDM: 08:33 Differential diagnosis: Insect in left external auditory canal. Data reviewed: vital en signs, nurses notes, and as a result, I will discharge patient, Insect killed with lidocaine irrigated with saline. Removal of insect from external auditory canal. ED course: Patient tolerated procedure well. TM intact after irrigation. Will DC home.. 08:37 Patient medically screened. en Administered Medications: 08:40 Drug: Lidocaine (1 %) 5 ml Route: Infiltration; iw Disposition: 13:18 Co-signature as Attending Physician, Alli Duff MD I agree with the assessment and kdr plan of care. Disposition Summary: 09/06/21 08:37 Discharge Ordered Location: Home en Problem: new en Symptoms: have improved en Condition: Stable en Diagnosis - Foreign body in left ear en Followup: en - With: Private Physician - When: As needed - Reason: Discharge Instructions: - Discharge Summary Sheet en - Ear Foreign Body, [id number]-[id number] en Forms: - Medication Reconciliation Form en - Thank You Letter en - Antibiotic Education en - Prescription Opioid Use en Signatures: Alli Duff MD MD [facility] Lynne Vera RN RN iw Connie Sorensen RN RN aa5 Chaparrita Velez PA PA en
--- NOTE | 2021-09-06 08:38 | ER ---
Nurse's Notes [facility] Name: Antelmo Vaughn Age: 21 yrs Sex: Male : 2000 Arrival Date: 09/06/2021 Time: 07:43 Bed 11 Private MD: Diagnosis: Foreign body in left ear Presentation: 09/06 07:44 Chief complaint: EMS states: believes there is insect in his left ear because "he can aa5 hear it crawling". Onset of symptoms was September 06, 2021. 07:44 Acuity: RICKEY 4 aa5 07:44 Coronavirus screen: At this time, the client does not indicate any symptoms associated aa5 with coronavirus-19. Ebola Screen: No symptoms or risks identified at this time. Initial Sepsis Screen: Does the patient meet any 2 criteria? No. Patient's initial sepsis screen is negative. Does the patient have a suspected source of infection? No. Patient's initial sepsis screen is negative. Risk Assessment: Do you want to hurt yourself or someone else? Patient reports no desire to harm self or others. 07:45 Method Of Arrival: EMS: [facility] aa5 Historical: - Allergies: 07:45 No Known Allergies; aa5 - PMHx: 07:45 None; aa5 - PSHx: 08:15 Cholecystectomy; aa5 - Immunization history:: Adult Immunizations unknown. - Social history:: Smoking status: Patient/guardian denies using tobacco. Screenin:58 Abuse screen: Denies threats or abuse. Denies injuries from another. Nutritional iw screening: No deficits noted. Tuberculosis screening: No symptoms or risk factors identified. Fall Risk None identified. Assessment: 08:14 General: Appears uncomfortable, Behavior is calm, cooperative. Pain: Denies pain. aa5 Neuro: Level of Consciousness is awake, alert, obeys commands, Oriented to person, place, time, situation. Cardiovascular: Patient's skin is warm and dry. Respiratory: Airway is patent Respiratory effort is even, unlabored, Respiratory pattern is regular, symmetrical. GI: No signs and/or symptoms were reported involving the gastrointestinal system. : No signs and/or symptoms were reported regarding the genitourinary system. EENT: Reports insect to left ear. Derm: Skin is dry, Skin is normal, Skin temperature is warm. Musculoskeletal: Range of motion: intact in all extremities. Vital Signs: 07:44 BP 131 / 91; Pulse 80; Resp 18 S; Temp 98.1(TE); Pulse Ox 98% on R/A; Weight 181.44 kg aa5 (R); Height 6 ft. 5 in. (195.58 cm) (R); 07:44 Body Mass Index 47.43 (181.44 kg, 195.58 cm) aa5 ED Course: 07:43 Patient arrived in ED. as 07:44 Arm band placed on. aa5 07:45 Triage completed. aa5 08:04 Chaparrita Velez PA is PHCP. en 08:04 Alli Duff MD is Attending Physician. en 08:31 Connie oSrensen, RN is Primary Nurse. aa5 08:40 Assist provider with foreign body removal of an insect from left ear canal. Set up for iw procedure. Performed by Chaparrita CHOWDHURY. 08:40 Patient did not have IV access during this emergency room visit. aa5 Administered Medications: 08:40 Drug: Lidocaine (1 %) 5 ml Route: Infiltration; iw Medication: 08:58 VIS not applicable for this client. iw Outcome: 08:37 Discharge ordered by MD. en 08:57 Discharged to home ambulatory. iw 08:57 Condition: good 08:57 Discharge instructions given to patient, Instructed on discharge instructions, follow up and referral plans. Demonstrated understanding of instructions, follow-up care. 08:58 Patient left the ED. iw Signatures: Lydia Vicente Irene, RN RN iw Calderon, Audri, CHOCO RN aaChaparrita Jean-Baptiste PA PA en
[2021-09-06 09:12] VITALS: BP 131/91; TEMP 98.1; O2SAT 98
== END 2021-09-06 08:58 | disposition home or self-care (01) ==
LOC: ER 07:42
PROC: 09C4XZZ Extirpation of Matter from Left External Auditory Canal, External Approach (ICD-10-PCS; principal; 2021-09-06)
DX: T16.2XXA Foreign body in left ear, initial encounter (principal)
CPT/HCPCS: 99283

== ENCOUNTER 2022-09-12 11:44 | Emergency (ER) | payer OTHER, SELFPAY ==
--- OUTSIDE RECORDS SUMMARY | 2022-09-12 11:49 | XMS REPORT | Continuity of Care Document ---
:2000 Author Organization [facility] t Address [address] [place] [address] Care Team Providers Name Role Phone No, Pcp [facility] Primary Care Physician Unavailable RYLEY MURILLO Attending Clinician Unavailable RAD TIDWELL Attending Clinician Unavailable Joelle Raza MD Attending Clinician [phone] Doctor Unassigned, [place] Attending Clinician Unavailable Gaurang Manjarrez MD Attending Clinician RYLEY MURILLO Admitting Clinician Unavailable RAD TIDWELL Admitting Clinician Unavailable RONA LOCKETT Admitting Clinician Unavailable Payers Payer Name Policy Type Policy Number Effective Date Expiration Date S [place] [facility] [id number] 2016 HEALTH 00:00:00 MEDICAID [facility] STAR [id number] Problems Condition Condition Condition Status Onset Resolution Last Treating Co mments Source Name Details Category Date Date Treatment Clinician Date ADHD ADHD Disease [facility] GERD GERD Disease Recurre [facility] (gastroeso (gastroeso nce 7 Summer kes phageal phageal 00:00: Medical reflux reflux 00 Center disease) disease) Morbidly Morbidly Disease Recurre [facility] obese obese nce -[facility] Center Tachycardi Tachycardi Disease Active [facility] Center Acute pain Acute pain Disease Active [facility] 00 Center S/P S/P Disease Active Overview: [facility] explorator explorator [facility] y y 00:00: g of this Medical laparotomy laparotomy 00 note Ce nter might be different from the original. Lap converted to open. Pancreati c abscess debride and drained, cholecyst ectomy Hypokalemi Hypokalemi Disease Active [facility] 7[facility]25 [facility] 00:00: Medical 00 [place] Hypomagnes Hypomagnes Disease Active [facility] emia emia 25 [facility] 00:[facility] 00 Center Choledocho Choledocho Disease Active [facility] lithiasis lithiasis -20 [facility] 00:00: Medical 00 Center Acute Acute Disease Active [facility] cholecysti cholecysti 20 Summer kes tis tis 00:00: Medical 00 [place] Left ankle Left ankle Disease Active 2017- U nivers pain pain 1-10 ity of 00:00: [address] Branch On On Disease Recurre [facility] mechanical mechanical nce Summer kes ly ly Medical assisted assisted Center ventilatio ventilatio n n Respirator Respirator Disease Active [facility] insufficie insufficie Me dical ncy ncy Center Allergies, Adverse Reactions, Alerts Allergy Allergy Status Severity Reaction(s) Onset Inactive Treating Comm ents Source Name Type Date Date Clinician NO KNOWN Drug Active Univers ALLERGIE Class ity of S [facility] NO KNOWN Allergy Active [facility] ALLERGIE [facility] Family History Family Member Diagnosis Comments Start Date Stop Date Source Maternal grandfather Heart disease C [facility] Maternal grandfather Diabetes [facility] Natural mother Diabetes [facility] Paternal aunt COPD [facility] Social History Social Habit Start Date Stop Date Quantity Comments Source Exposure to Not sure University of SARS-CoV-2 [place] [facility] (event) Branch History SDOH [facility] Alcohol Std Medical Cente r Drinks History SDOH [facility] Alcohol Binge Medical Kate ter Tobacco use and 2020-02-15 2020-02-15 Never used [facility] llege of exposure 00:00:00 00:00:00 Medicine Alcohol intake 2019-10-22 2019-10-[address] [facility] es 00:00:00 00:00:00 non-drinker of Medical Ce nter alcohol (finding) History SDOH 2019-10-16 2019-10-[address] [facility] Alcohol Frequency 00:00:00 00:00:00 Medical Center Sex Assigned At [address] Summer kes 00:00:00 00:00:00 Medical Center Smoking Status Start Date Stop Date Source Never smoker [facility] o f Medicine Medications Ordered Filled Start Stop Current Ordering Indication Dosage Frequency Signature Comments Components Source Medication Medication Date Date Medication? Clinician (SIG) Name Name ibuprofen 2019-03 Yes 600mg Take 1 [facility] (MOTRIN) 1-20 Tablet by Colleg e 600 MG 00:00: mouth of tablet 00 every 6 Medicin hours as e needed for Pain. traMADoL Yes 50mg Take [address] (ULTRAM) 50 8-04 tablet (50 Summer kes mg tablet 00:00: mg total) Med ical 00 by mouth Center every 8 (eight) hours as needed for Pain. Max Daily Amount: 150 mg iohexol 2019- No 120mL 120 mL, Unive rs (OMNIPAQUE 10-0915 Intravenou it y of 350 09:00: 09:00 s, ONCE, 1 [place] BULK-150 00 :00 dose, Wed Medica l mL) 10/10/19 at [place] injection 0400, 120 mL Routine maalox:diph 2019-2019- No 15mL 15 mL, Uni vers enhydrAMINE 10-09-15 Oral, ity of :lidocaine 09:00: 08:02 ONCE, 1 [place] as 2 % viscous 00 :00 dose, Wed Med ical 1:1:1 10/10/19 at [place] (FIRST-MOUT 0400, HWASH BLM) Routine oral suspension 15 mL ondansetron Yes [id number] 4mg Take 1 Univers 4 mg 6-15 tablet by ity of disintegrat 00:00: mouth [place] ing tablet 00 every 4 Medica l (four) Branch hours as needed for Nausea and Vomiting (N/V). dicyclomine 2019-0 Yes [id number] 10mg Take 1 Univers (BENTYL) 10 6-15 capsule by it y of mg capsule 00:00: mouth [place] (four) Medical times Branch daily. docusate 2019-0 Yes [id number] 250mg Take 1 Un rosalia sodium 250 6-15 capsule by ity of mg capsule 00:00: mouth [place] 00 daily. Medical Branch famotidine 2018-0 Yes [id number] 20mg Take 1 U nivers 20 mg 6-15 tablet by ity of tablet 00:00: mouth 2 [place] 00 (two) Medical times Branch daily. ondansetron 2019-0 Yes [id number] 4mg Take 1 Univers 4 mg 6-15 tablet by ity of disintegrat 00:00: mouth [place] ing tablet 00 every 4 Medica l (four) Branch hours as needed for Nausea and Vomiting (N/V). dicyclomine 2019-0 Yes [id number] 10mg Take 1 Univers (BENTYL) 10 6-15 capsule by it y of mg capsule 00:00: mouth [place] (four) Medical times Branch daily. docusate 2019-0 Yes [id number] 250mg Take 1 Un rosalia sodium 250 6-15 capsule by ity of mg capsule 00:00: mouth [place] 00 daily. Medical Branch famotidine 2019-0 Yes [id number] 20mg Take 1 U nivers 20 mg 6-15 tablet by ity of tablet 00:00: mouth 2 [place] 00 (two) Medical times Branch daily. ondansetron 2019-0 Yes [id number] 4mg Take 1 Univers 4 mg 6-15 tablet by ity of disintegrat 00:00: mouth [place] ing tablet 00 every 4 Medica l (four) Branch hours as needed for Nausea and Vomiting (N/V). dicyclomine 2019-0 Yes [id number] 10mg Take 1 Univers (BENTYL) 10 6-15 capsule by it y of mg capsule 00:00: mouth [place] (four) Medical times Branch daily. docusate 2019-0 Yes [id number] 250mg Take 1 Un rosalia sodium 250 6-15 capsule by ity of mg capsule 00:00: mouth [place] 00 daily. Medical Branch famotidine Yes [id number] 20mg Take 1 U nivers 20 mg 6-15 tablet by ity of tablet 00:00: mouth 2 [place] (two) Medical times Branch daily. ondansetron Yes [id number] 4mg Take 1 Univers 4 mg 6-15 tablet by ity of disintegrat 00:00: mouth [place] ing tablet 00 every 4 Medica l (four) Branch hours as needed for Nausea and Vomiting (N/V). dicyclomine Yes [id number] 10mg Take 1 Univers (BENTYL) 10 6-15 capsule by it y of mg capsule 00:00: mouth [place] (four) Medical times Branch daily. docusate Yes [id number] 250mg Take 1 Un rosalia sodium 250 6-15 capsule by ity of mg capsule 00:00: mouth [place] daily. Medical Branch famotidine Yes [id number] 20mg Take 1 U nivers 20 mg 6-15 tablet by ity of tablet 00:00: mouth 2 [place] (two) Medical times Branch daily. pantoprazol Yes TK 1 T PO U nivers e 40 mg EC 1-25 Q MORNING ity of tablet 00:00: [facility] Branch pantoprazol 2017-0 Yes TK 1 T PO U nivers e 40 mg EC 1-25 Q MORNING ity of tablet 00:00: [facility] Medical Branch pantoprazol 2018-0 Yes TK 1 T PO U nivers e 40 mg EC 1-25 Q MORNING ity of tablet 00:00: [facility] Medical Branch pantoprazol 2017-0 Yes TK 1 T PO U nivers e 40 mg EC 1-25 Q MORNING ity of tablet 00:00: [facility] Medical Branch FOCALIN XR 2016- Yes TK ONE C Uni vers 20 mg 24 hr 1-05 PO QAM ity of capsule 00:00: [place] [facility] FOCALIN XR 2016-0 Yes TK ONE C Uni vers 20 mg 24 hr 1-05 PO QAM ity of capsule 00:00: [place] [facility] FOCALIN XR 2016-0 Yes TK ONE C Uni vers 20 mg 24 hr 1-05 PO QAM ity of capsule 00:00: [place] [facility] FOCALIN XR Yes TK ONE C Uni vers 20 mg 24 hr 1-05 PO QAM ity of capsule 00:00: [place] 00 Medical Branch acetaminoph Yes 1{tbl} Take 1 [...] Yes TAKE 1/2 T Univers enidate 10 -14 PO QAM AND ity of mg tablet 00:00: [place] 1 WEEK. Medical THEN 1 T Branch PO QAM AND Q NOON Vital Signs Vital Name Observation Time Observation Value Comments Source WEIGHT 2019-10-15 00:00:00 196.5 kg HEIGHT 2019-10-15 00:00:00 193 cm Body weight 2020-02-15 20:26:00 177.356 kg [facility] BMI 2020-02-15 20:26:00 47.59 kg/m2 [facility] Systolic blood 2020-02-15 20:26:00 129 mm[Hg] [facility] Diastolic blood 2020-02-15 20:26:00 80 mm[Hg] [facility] Heart rate 2020-02-15 20:26:00 65 /min [facility] Body height 2020-02-15 20:26:00 193 cm [facility] WEIGHT 2019-10-15 00:00:00 196.5 kg HEIGHT 2019-10-15 00:00:00 193 cm Systolic blood 2019-10-10 10:59:00 167 mm[Hg] Univer sity [facility] Diastolic blood 2019-10-10 10:59:00 93 mm[Hg] Unive rsity [facility] Heart rate 2019-10-10 10:59:00 65 /min [facility] Respiratory rate 2019-10-10 10:59:00 16 /min [facility] O[facility] saturation in 2019-10-10 10:59:00 98 /min [facility] Arterial blood by [facility] Pulse oximetry Branch Body temperature 2019-10-10 07:55:00 37.22 Heidy [facility] Body height 2019-10-10 07:55:00 193 cm Universi [facility] Body weight 2019-10-10 07:55:00 145.151 kg Universi [facility] BMI 2019-10-10 07:55:00 38.95 kg/m2 Universi [facility] Systolic blood 2019-10-10 10:59:00 167 mm[Hg] Univer sity of [facility] Diastolic blood 2019-10-10 10:59:00 93 mm[Hg] Unive rsity of pressure [facility] Heart rate 2019-10-10 10:59:00 65 /min [facility] Respiratory rate 2019-10-10 10:59:00 16 /min [facility] Oxygen saturation in 2019-10-10 10:59:00 98 /min [facility] Arterial blood by [facility] Pulse oximetry Branch Body temperature 2019-10-10 07:55:00 37.22 Heidy [facility] Body height 2019-10-10 07:55:00 193 cm [facility] Body weight 2019-10-10 07:55:00 145.151 kg [facility] BMI 2019-10-10 07:55:00 38.95 kg/m2 [facility] Procedures Procedure Date / Time Performing Clinician Source Performed AUTHORIZATION FOR 2019-10-11 05:01:00 Doctor Unassigned, No [facility] [place] RE[facility] OF [facility] Medical Branch US GALL BLADDER 2019-10-10 10:38:35 Gaurang Manjarrez [facility] CT ABDOMEN PELVIS W 2019-10-10 08:57:12 [facility]rez [facility] CONTRAST [facility] Branch LIPASE 2019-10-10 08:02:00 Gaurang Manjarrez [facility] COMP. METABOLIC PANEL 2019-10-10 08:02:00 Gaurang Manjarrez [facility] ([id number]) [facility] CBC WITH DIFFERENTIAL 2019-10-10 08:02:00 Gaurang Manjarrez [facility] URINALYSIS 2019-10-10 08:02:00 Gaurang Manjarrez [facility] NOTICE OF PRIVACY 2019-10-10 07:46:47 Doctor Unassigned, No [facility] [place] PRACTICES Name Medical Branch CONSENT/REFUSAL FOR 2019-10-10 07:45:08 Doctor Unassigned, No [facility] [place] [facility] AND TREATMENT [facility] Medical Branch AUTHORIZATION FOR 2018-09-11 05:01:00 Doctor Unassigned, No [facility] [place] RELEASE OF [facility] Medical [facility] Plan of Care Planned Activity Planned Date Details Comments Source Future Scheduled 2022-11-[address] [facility] Test 00:00:00 (Season Ended) [code Medical Center = Influenza Vaccine (Season Ended)] Future Scheduled 2022-03-[address] [facility] Test 00:00:00 (12+) [code = Medical Center DEPRESSION SCREENING (12+)] Future Scheduled 2020-10-[address] [facility] Test 00:00:00 Counseling and Medical Cente r Screening (12+) [code = Tobacco Cessation Counseling and Screening (12+)] Future Scheduled [address] [facility] Test 00:00:00 (procedure) [code = [facility] Center [id number]] Future Scheduled 2019-08-10 DTAP/TDAP/TD [facility] Test 00:00:00 VACCINES (1 - Tdap) [facility] Center [code = DTAP/TDAP/TD VACCINES (1 - Tdap)] Future Scheduled [address] [facility] Test 00:00:00 SCREENING [code = Medical nter HEPATITIS C SCREENING] Future Scheduled 2001-02-09 COVID-[address] [facility] Test 00:00:00 (#1) [code = Medical Center COVID-19 VACCINE (#1)] Future Scheduled HPV VACCINE (1 - [facility] of Test Male 2-dose series) Medicine [code = HPV VACCINE (1 - Male 2-dose series)] Future Scheduled TETANUS SHOT (ADULT) [facility] of Test [code = TETANUS SHOT Medicin e (ADULT)] Future Scheduled HEPATITIS C [facility] ege of Test SCREENING [code = Medicine HEPATITIS C SCREENING] Future Scheduled HIV SCREENING [code [facility] of Test = HIV SCREENING] Medicine Future Scheduled FLU VACCINE > 6 [facility] ollege of Test MONTHS [code = FLU Medicine VACCINE > 6 MONTHS] Encounters Start End Encounter Admission Attending Care Care Encounter Source Date/Time Date/Time Type Type Clinicians Facility Department ID 2021-01-23 Emergency [facility] [id number] Univers 06:47:30 ity of [facility] 2020-12-31 Inpatient OTHMAN, SLE Surgery [id number] [facility] 00:26:12 MOHAMED 2019-10-15 Inpatient UR NALAM, [facility] Gastro [id number] SLE 19:23:00 RAD 2020-02-15 2020-02-15 Office OLGA Raza [id number] [facility] 14:20:00 14:35:00 Visit Joelle AMBULATOR [id number] [facility] [id number] [facility] 815 e 2019-10-11 2019-10-11 Orders Doctor SAGAR [id number] [place] [address] 00:00:00 00:00:00 Only Unassigned, CIARA [id number] ity of [place] [facility] [id number] Oren as [phone] [address] 2019-10-10 2019-10-10 Emergency [facility] [id number] [facility] 02:47:36 06:06:00 Gaurang Lassiter [id number] i ty of [place] [id number] [facility] [id number] [facility] 084 [place] 2019-10-10 2019-10-10 Emergency [facility] [id number] 02:47:36 06:06:00 Gaurang Lassiter [id number] [place] 4.2.7.2.686 [place] [id number] [facility] 2019-10-10 2019-10-10 Orders Doctor KEITH [id number] Univers 00:00:00 00:00:00 Only Unassigned, CIARA [id number] ity [facility] [place] [facility] [id number] Oren as [phone] [address] 2019-10-10 2019-10-10 Orders Doctor KEITH [id number] 00:00:00 00:00:00 Only Unassigned, CIARA [id number] [place] [facility] [id number] [id number] 2018-09-11 2018-09-11 Orders Doctor KEITH [id number] Univers 00:00:00 00:00:00 Only Unassigned, CIARA [id number] ity of [place] [facility] [id number] Oren as [phone] [facility] 009 Branch 2018-09-11 2018-09-11 Orders Doctor SAGAR [id number] 00:00:00 00:00:00 Only Unassigned, CIARA [id number] [place] [facility] [id number] [id number] [id number] Results Test Description Test Time Test [...] code = 994) seen FUNGUS CULTURE + [id number] 08:30:00 Test Item Value Reference Range Interpretation Comments CULTURE (BEAKER) (test No fungus isolated in code = 1095) 28 days FUNGUS SMEAR (BEAKER) No fungi seen (test code = 1406) FUNGUS CULTURE + [id number] 08:30:00 Test Item Value Reference Range Interpretation Comments CULTURE (BEAKER) (test No fungus isolated in code = 1095) 28 days FUNGUS SMEAR (BEAKER) No fungi seen (test code = 1406) SARS-COV2/RT-PCR ([facility])2019-10-30 09:07:00 Test Item Value Reference Range Interpretation Comments SARS-COV2/RT-PCR (test Negative Not Detected, Negative, code = 5307507) See external report for linked test SARS-COV-[address] [facility] (test code = 8649613) Negative result for this test determines that SARS-CoV-2 RNA was not present in the specimen above the Limit of Detection (LOD). However, Negative results do not preclude SARS-CoV-2 infection and should not be used as the sole basis for treatment or patient management decisions. Negative results must be [...] justifying the authorization of the emergency use ofin vitro diagnostic tests for detection and/or diagnosis of COVID-19 is terminated under Section 564(b)(2) of the Act or the EUA is revoked under Section 564(g) of the Act.Fact Sheet for Healthcare Prov iders:https://www.[employer].Mir[employer]eg/sites/default/files/product/documents/Fact_Sheet_HC _Xvwsfuddt_Eozf_PMVU-ThP-4.pdfFact Sheet for Healthcare Patients:https://www.[employer].com/sites/default/files/product/docume nts/Uemd_Nioqc_Qlyatovm_Ljkl_LMND-JdZ-7.pdfPerforming Laboratory:[facility], [place] [address]OMLBAYK FUNCTION PANEL 2019-10-30 06:48:00 Test Item Value Reference Range Interpretation [...] Specimen slightly (test code = 347) hemolyzed Regional Sales Director ID - DEMARCO WCBC (HEMOGRAM ONLY)2019-10-30 06:39:00 [...] (BEAKER) (test code = 413) BASIC METABOLIC [id number] 08:29:00 Test Item Value Reference Range Interpretation [...] S NOT APPLICABLE FOR DIALYSIS PATIEN TS. Regional Sales Director ID - PIAYA LHEPATIC FUNCTION [id number] 08:20:00 Test Item Value Reference Range Interpretation [...] code = 124 U/L 6-55 H 347) Regional Sales Director ID - PIAYA LCBC (HEMOGRAM ONLY)2019-10-29 07:33:00 Test Item Value [...] code = 413) URINALYSIS W/ REFLEX URINE [id number] 20:20:00 Test Item Value Reference Range Interpretation [...] = 516) SOURCE(BEAKER) (test code = 2795) Regional Sales Director ID - [auto]Regional Sales Director ID - hankBLOOD [id number] 16:00:00 Test Item Value Reference Range Interpretation Comments CULTURE (BEAKER) (test No growth in 5 days code = 1095) RAD, CHEST, 1 VIEW, NON [id number] 14:35:00Reason for exam:->FeverShould this be performed at the bedside?->YesFINAL REPORT TECHNIQUE: Frontal view of the chest. INDICATION: Fever. COMPARISON: Chest radiograph from 10/23/2019. FINDINGS: LINES/TUBES: None. LUNGS: The previously seen left basilar opacity has decreased. PLEURA: No pneumothorax or significant pleural effusion. HEART AND MEDIASTINUM: The cardiac silhouette is normal in size. SOFT TISSUES AND BONES: Unremarkable. IMPRESSION: Left basilar opacity has decreased compared the prior examination and was likely atelectasis. Signed: Austyn Rascon MDReport Verified Date/Time: 10/28/2019 14:35:57 Reading Location: [address] Body Reading Room BLOOD [id number] 13:00:00 Test Item Value Reference Range Interpretation Comments CULTURE (BEAKER) (test No growth in 5 days code = 1095) BASIC METABOLIC [id number] 07:07:00 Test Item Value Reference Range Interpretation [...] S NOT APPLICABLE FOR DIALYSIS PATIEN TS. Regional Sales Director ID - PIAYA LHEPATIC FUNCTION [id number] 07:03:00 Test Item Value Reference Range Interpretation [...] code = 145 U/L 6-55 H 347) Regional Sales Director ID - PIAYA LCBC (HEMOGRAM ONLY)2019-10-28 06:29:00 [...] (BEAKER) (test code = 413) HEPATIC FUNCTION [id number] 07:32:00 Test Item Value Reference Range Interpretation [...] code = 148 U/L 6-55 H 347) Regional Sales Director ID - PIAYA LBASIC METABOLIC [id number] 07:32:00 Test Item Value Reference Range Interpretation [...] S NOT APPLICABLE FOR DIALYSIS PATIEN TS. Regional Sales Director ID - PIAYA LCREATINE KINASE (CK)2019-10-27 07:32:00 Test Item Value Reference Range Interpretation Comments CREATINE KINASE TOTAL (BEAKER) (test 161 U/L 29-200 code = 380) Regional Sales Director ID - PIAYA LCBC (HEMOGRAM ONLY)2019-10-27 05:57:00 Test Item Value [...] 0-0 (BEAKER) (test code = 413) POCT-GLUCOSE [id number] 12:21:00 Test Item Value Reference Range Interpretation Comments POC-GLUCOSE METER 127 mg/dL 70-110 H : TESTED A T [facility] (BEAKER) (test code = YVETTE TELLES ME, 1538) [address]: Regional Sales Director/Techni telma ID = [id number] for IRAIS GLEZ AMYLASE, BODY [id number] 11:43:00 Test Item Value Reference Range Interpretation Comments AMYLASE FLUID (BEAKER) SPECI MEN UNSUITABLE; NOT (test code = 350) ABLE TO RU N. [id number] Absence of reference range indicates that normals have not been defined.Assay performance has not been validated for this type of specimen.AMYLASE, BODY FLUID 2019-10-26 09:49:00 Test Item Value Reference Range Interpretation Comments AMYLASE FLUID (BEAKER) SPECI MEN UNSUITABLE FOR (test code = 350) TESTING. B #[id number] Absence of reference range indicates that normals [...] (BEAKER) (test code = 413) BASIC METABOLIC [id number] 05:57:00 Test Item Value Reference Range Interpretation [...] S NOT APPLICABLE FOR DIALYSIS PATIEN TS. Regional Sales Director ID - EDASIHEPATIC FUNCTION [id number] 05:56:00 Test Item Value Reference Range Interpretation [...] code = 141 U/L 6-55 H 347) Regional Sales Director ID - EDASICREATINE KINASE (CK)2019-10-26 05:56:00 Test Item Value Reference Range Interpretation Comments CREATINE KINASE TOTAL (BEAKER) (test 136 U/L 29-200 code = 380) Regional Sales Director ID - EDASIPOCT-GLUCOSE [id number] 16:17:00 Test Item Value Reference Range Interpretation Comments POC-GLUCOSE METER 98 mg/dL 70-110 : TESTED A T [facility] (BEAKER) (test code = YVETTE TELLES ME, 1538) 78560: Regional Sales Director/Techni telma ID = [id number] for HEIDY CHAMORRO BASIC METABOLIC [id number] 07:22:00 Test Item Value Reference Range Interpretation [...] S NOT APPLICABLE FOR DIALYSIS PATIEN TS. Regional Sales Director ID - NTPHEPATIC FUNCTION [id number] 07:12:00 Test Item Value Reference Range Interpretation [...] code = 106 U/L 6-55 H 347) Regional Sales Director ID - NTPCBC (HEMOGRAM ONLY)2019-10-25 06:43:00 Test [...] 0-0 (BEAKER) (test code = 413) ANAEROBIC [id number] 19:33:00 Test Item Value Reference Range Interpretation Comments CULTURE (BEAKER) (test No anaerobes isolated code = 1095) ANAEROBIC [id number] 19:32:00 Test Item Value Reference Range Interpretation Comments CULTURE (BEAKER) (test No anaerobes isolated code = 1095) URINALYSIS W/ REFLEX URINE [id number] 18:06:00 Test Item Value Reference Range Interpretation [...] = 516) SOURCE(BEAKER) (test code = 2795) Regional Sales Director ID - [auto]Regional Sales Director ID - JORGE [id number] 17:30:00PLEASE ADMINISTER IV AND PO CONTRASTFINAL REPORT TECHNIQUE: CT of the chest, abdomen, and pelvis WITH intravenous contrast and WITHOUT oral contrast. Dose modulation, iterative reconstruction, and/or weight-based adju stment of the mA/kV was utilized to reduce [...] pleural effusion..HEART AND MEDIASTINUM: The visualized thyroid glandis normal. No significant mediastinal, hilar, or axillary lymphadenopathy. The heart is enlarged. Nosignificant pericardial effusion.. HEPATOBILIARY: No focal hepatic lesions. Gallbladder is absent.. There is mild pneumobilia likely related to recent biliary procedure..SPLEEN: No splenomegaly.PANCREAS: Diffuse enlargement of the pancreas with extensive peripancreatic edema. There is mild patchy decre ased enhancement in the pancreatic neck. Pancreas otherwise demonstrates normal enhancement. There is edema with the adjacent retroperitoneum and within the mesentery. There is a surgical drain in the right upper quadrant.. ADRENALS: No adrenal nodules.KIDNEYS/URETERS: No hydronephrosis, stones, or solid mass lesions.PELVIC ORGANS/BLADDER: Unremarkable. PERITONEUM/RETROPERITONEUM: No free [...] the pancreas enhances normally. No focal fluid collection . Small left-sided pleural effusion with dependent groundglass consolidative opacities in the lower lobes which may represent atelectasis or pneumonia. Signed: Alan Bolton MDReport Verified Date/Time: 10/24/2019 17:30:15 Reading Location: [address] Transitional Reading Room CT, CHEST, WITH CONTRAST 2019-10-24 17:30:00FINAL REPORT TECHNIQUE: CT of the chest, [...] pleural effusion..HEART AND MEDIASTINUM: The visualized thyroid glandis normal. No significant mediastinal, hilar, or axillary lymphadenopathy. The heart is enlarged. Nosignificant pericardial effusion.. HEPATOBILIARY: No focal hepatic lesions. Gallbladder is absent.. There is mild pneumobilia likely related to recent biliary procedure..SPLEEN: No splenomegaly.PANCREAS: Diffuse enlargement of the pancreas with extensive peripancreatic edema. There is mild patchy decre ased enhancement in the pancreatic neck. Pancreas otherwise demonstrates normal enhancement. There is edema with the adjacent retroperitoneum and within the mesentery. There is a surgical drain in the right upper quadrant.. ADRENALS: No adrenal nodules.KIDNEYS/URETERS: No hydronephrosis, stones, or solid mass lesions.PELVIC ORGANS/BLADDER: Unremarkable. PERITONEUM/RETROPERITONEUM: No free [...] the pancreas enhances normally. No focal fluid collection . Small left-sided pleural effusion with dependent groundglass consolidative opacities in the lower lobes which may represent atelectasis or pneumonia. Signed: Alan Bolton MDReport Verified Date/Time: 10/24/2019 17:30:15 Reading Location: [address] Transitional Reading Room POCT-GLUCOSE [id number] 11:49:00 Test Item Value Reference Range Interpretation Comments POC-GLUCOSE METER 153 mg/dL 70-110 H : TESTED A T [facility] 6720 (BEAKER) (test code = YVETTE Paul [facility], 1538) [address]: Regional Sales Director/Techni telma ID = [id number] for HEIDY WATSON BASIC METABOLIC [id number] 06:36:00 Test Item Value Reference Range Interpretation [...] S NOT APPLICABLE FOR DIALYSIS PATIEN TS. Regional Sales Director ID - EDASIHEPATIC FUNCTION [id number] 05:57:00 Test Item Value Reference Range Interpretation [...] code = 95 U/L 6-55 H 347) Regional Sales Director ID - EDASICBC (HEMOGRAM ONLY)2019-10-24 05:29:00 Test [...] 0-0 (BEAKER) (test code = 413) TISSUE [id number] 13:16:00Surgical Pathology Report Case: [id number] Authorizing Provider: Amalia Reyez MD Collected: 10/19/2019 12:15 PM Ordering Location: [facility] Received: 10/19/2019 02:33 PM SERVICES Pathologist: Yessi Harrington MD Specimen: Gallbladder GALL BLADDER, CHOLECYSTECTOMY: - ACUTE ONCHRONIC CHOLECYSTITIS - CHOLELITHIASIS - CYSTIC DUCT MARGIN IS UNREMARKABLE - NEGATIVE FOR DYSPLASIAOR MALIGNANCY Signing Pathologist Direct Phone Line: [phone] signed by Yessi Harrington MD on 10/23/2019 at 1:16 [id number], common bile duct Gallbladder Received in formalin is labeled [...] that is 3.0 cm from the cystic duct neck margin. The wall ranges inthickness from 0.2 to 0.4 cm. It is [...] Also the calculi are brown and bosselated. Firer Helper sections are submitted in cassette A1 (duct, neck to body); A2, (body to fundus. .JG/plPerformedPOCT-GLUCOSE [id number] 11:38:00 Test Item Value Reference Range Interpretation Comments POC-GLUCOSE METER 113 mg/dL 70-110 H : TESTED A T [facility] 6720 (BEAKER) (test code = YVETTE Paul TELLES ME, 1538) 86015: Regional Sales Director/Techni telma ID = [id number] for Erasmo Aragon CREATINE KINASE (CK)2019-10-23 10:22:00 Test Item Value Reference Range Interpretation Comments CREATINE KINASE TOTAL (BEAKER) (test 253 U/L 29-200 H code = 380) Regional Sales Director ID - ALEKSANDRA, CHEST, 1 VIEW, NON [id number] 08:04:00Reason for exam:->resp insuffciency, pulm edemaShould this be performed at the bedside?->YesFINAL REPORT CLINICAL HISTORY: resp insuffciency, pulm edema TECHNIQUE: 1 view of the chest. COMPARISON: 10/22/2019 IMPRESSION: Low lung volumes are again seen with bandlike opacities in both lower lung zones. Subpulmonic pleural effusions cannot be excluded. The cardiomediastinal silhouette is magnified by technique. Signed: Nabor Hutchison MDReport Verified Date/Time: 10/23/2019 08:04:47 Reading Location: [facility] Radiology Reading Room POCT-GLUCOSE [id number] 06:35:00 Test Item Value Reference Range Interpretation Comments POC-GLUCOSE METER 147 mg/dL 70-110 H : [facility] (BEAKER[facility] (test code = YVETTE Beverly [facility], 1538) [address]: Regional Sales Director/Techni telma ID = [id number] for PINKY ARAGON BASIC METABOLIC [id number] 06:32:00 Test Item Value Reference Range Interpretation [...] S NOT APPLICABLE FOR DIALYSIS PATIEN TS. Regional Sales Director ID - [id number] 06:29:00 Test Item Value Reference Range Interpretation Comments PHOSPHORUS (BEAKER) (test code = 3.5 mg/dL 2.3-4.7 604) Regional Sales Director ID - DAUASRWAKUMICI2707-36-27 06:29:00 Test Item Value Reference Range Interpretation Comments MAGNESIUM (BEAKER) (test code = 2.1 mg/dL 1.6-2.6 627) Regional Sales Director ID - EDASIHEPATIC FUNCTION [id number] 06:29:00 Test Item Value Reference Range Interpretation [...] code = 87 U/L 6-55 H 347) Regional Sales Director ID - EDASICBC (HEMOGRAM ONLY)2019-10-23 05:55:00 Test [...] 0-0 (BEAKER) (test code = 413) POCT-GLUCOSE [id number] 00:52:00 Test Item Value Reference Range Interpretation Comments POC-GLUCOSE METER 160 mg/dL 70-110 H : TESTED A T [facility] 6720 (BEAKER) (test code = [facility], 153) 08475: Regional Sales Director/Techni telma ID = [id number] for PINKY ARAGON POCT-GLUCOSE [id number] 18:21:00 Test Item Value Reference Range Interpretation Comments POC-GLUCOSE METER 140 mg/dL 70-110 H : TESTED A T [facility] 6720 (BEAKER) (test code = [facility], 153) 873[address]: Regional Sales Director/Techni telma ID = [id number] for Sanjiv Aragoniona POCT-GLUCOSE [id number] 16:06:00 Test Item Value Reference Range Interpretation Comments POC-GLUCOSE METER 107 mg/dL 70-110 : TESTED A T [facility] 6720 (BEAKER) (test code = [facility], 153) 87562: Regional Sales Director/Techni telma ID = [id number] for Adrián coxiams, Areiona BASIC METABOLIC [id number] 16:02:00 Test Item Value Reference Range Interpretation [...] S NOT APPLICABLE FOR DIALYSIS PATIEN TS. Regional Sales Director ID - [id number] 15:59:00 Test Item Value Reference Range Interpretation Comments PHOSPHORUS (BEAKER) (test code = 3.5 mg/dL 2.3-4.7 604) Regional Sales Director ID - [id number] 15:59:00 Test Item Value Reference Range Interpretation Comments MAGNESIUM (BEAKER) (test code = 2.2 mg/dL 1.6-2.6 627) Regional Sales Director ID - BSCBC (HEMOGRAM ONLY)2019-10-22 15:46:00 Test [...] = 413) SURGICALLY OBTAINED CULTURE + GRAM [id number] 11:26:00 Test Item Value Reference Range Interpretation Comments CULTURE (BEAKER) (test No growth code = 1095) GRAM STAIN RESULT No WBCs (BEAKER) (test code = 1123) GRAM STAIN RESULT 1+ gram negative rods (BEAKER) (test code = 62510) SURGICALLY OBTAINED CULTURE + GRAM [id number] 11:25:00 Test Item Value Reference Range Interpretation Comments CULTURE (BEAKER) (test code No growth = 1095) GRAM STAIN RESULT (BEAKER) <1+ WBCs (test code = 1123) GRAM STAIN RESULT (BEAKER) No organisms seen (test code = 29402) RAD, CHEST, 1 VIEW, NON [id number] 07:41:00Reason for exam:->resp insuffciency, pulm edemaShould this be performed at the bedside?->YesFINAL REPORT Chest AP portable Comparison exam: 10/21/2019 History provided: Respiratory insufficiency Heart size magnified by projection and poor inspiration. Lungs grossly clear and vascularity normal. Signed: Ryder Andrew MDReport Verified Date/Time: 10/22/2019 07:41:48 Reading Location: [facility] Diagnostic Imaging Reading Room [place] [address] POCT-GLUCOSE [id number] 05:39:00 Test Item Value Reference Range Interpretation Comments POC-GLUCOSE METER 103 mg/dL 70-110 : TESTED A T [facility] 67[facility] (BEAKER) (test code = YVETTE TELLES [place], 1538) 30517: Regional Sales Director/Techni telma ID = [id number] for VALENTIN GARCIA BASIC METABOLIC [id number] 05:15:00 Test Item Value Reference Range Interpretation [...] S NOT APPLICABLE FOR DIALYSIS PATIEN TS. Regional Sales Director ID Carter PAL [id number] 05:11:00 Test Item Value Reference Range Interpretation Comments PHOSPHORUS (BEAKER) (test code = 3.7 mg/dL 2.3-4.7 604) Regional Sales Director ID - DEMARCO [id number] 05:11:00 Test Item Value Reference Range Interpretation Comments MAGNESIUM (BEAKER) (test code = 2.2 mg/dL 1.6-2.6 627) Regional Sales Director ID Carter PAL WHEPATIC FUNCTION [id number] 05:11:00 Test Item Value Reference Range Interpretation [...] code = 70 U/L 6-55 H 347) Regional Sales Director EUGENE Carter PAL WCBC (HEMOGRAM ONLY)2019-10-22 04:27:00 Test Item [...] 0-0 (BEAKER) (test code = 413) POCT-GLUCOSE [id number] 00:46:00 Test Item Value Reference Range Interpretation Comments POC-GLUCOSE METER 131 mg/dL 70-110 H : TESTED A T [facility] 67[facility] (BEAKER) (test code = YVETTE TELLES [place], 1538) 00931: Regional Sales Director/Techni telma ID = [id number] for VALENTIN GARCIA [id number] 14:35:00 Test Item Value Reference Range Interpretation Comments MAGNESIUM (BEAKER) (test code = 2.4 mg/dL 1.6-2.6 627) Regional Sales Director ID - LEANN FBASIC METABOLIC [id number] 14:24:00 Test Item Value Reference Range Interpretation [...] S NOT APPLICABLE FOR DIALYSIS PATIEN TS. Regional Sales Director ID Carter NORIEGA [id number] 14:22:00 Test Item Value Reference Range Interpretation Comments PHOSPHORUS (BEAKER) (test code = 2.8 mg/dL 2.3-4.7 604) Regional Sales Director ID - LEANN FPOCT-GLUCOSE [id number] 13:30:00 Test Item Value Reference Range Interpretation Comments POC-GLUCOSE METER 124 mg/dL 70-110 H : TESTED A T [facility] 6720 (BEAKER) (test code = [facility], 153) 73032: Regional Sales Director/Techni telma ID = [id number] for Shilo melloRizwana POCT-GLUCOSE [id number] 06:41:00 Test Item Value Reference Range Interpretation Comments POC-GLUCOSE METER 117 mg/dL 70-110 H : TESTED A T [facility] 6720 (BEAKER) (test code = [facility], 153) 54943: Regional Sales Director/Techni telma ID = [id number] for DO LOW, CHIKIS [id number] 06:40:00 Test Item Value Reference Range Interpretation Comments MAGNESIUM (BEAKER) 3.1 mg/dL 1.6-2.6 H Specimen moderately (test code = 627) hemolyzed Regional Sales Director ID - [id number] 06:40:00 Test Item Value Reference Range Interpretation Comments PHOSPHORUS (BEAKER) 3.5 mg/dL 2.3-4.7 Specimen moderately (test code = 604) hemolyzed Regional Sales Director ID - MALIHAASIHEPATIC FUNCTION [id number] 06:40:00 Test Item Value Reference Range Interpretation [...] Specimen moderately (test code = 347) hemolyzed Regional Sales Director ID - EDASIBASIC METABOLIC [id number] 06:40:00 Test Item Value Reference Range Interpretation [...] S NOT APPLICABLE FOR DIALYSIS PATIEN TS. Regional Sales Director ID - EDASILACTIC ACID, [id number] 06:16:00 Test Item Value Reference Range Interpretation Comments LACTATE BLOOD 1.1 mmol/L 0.5-2.2 Specimen sligh tly ARTERIAL (2) (BEAKER) hemoly zed (test code = 2874) Regional Sales Director ID - EDASICBC (HEMOGRAM ONLY)2019-10-21 05:53:00 Test [...] code = 413) RAD, ABDOMEN/KUB, 1 VIEW [id number] 05:21:00Reason for exam:->NG tube positionShould this be performed at the bedside?->YesFINAL REPORT TECHNIQUE: Supine views of the abdomen. INDICATION: NG tube position. COMPARISON: None. FINDINGS/IMPRESSION: The nasogastric tube descends below the gastroesophageal junction terminating in the region of the gastric fundus. Bowel gas pattern is nonspecific but nonobstructive. Surgical drain overlies the right upper abdomen. Signed: Kingsley, Esperanza MDReport Verified Date/Time: 10/21/2019 05:21:40 CALCIUM, [id number] 05:18:00 Test Item Value Reference Range Interpretation Comments CALCIUM IONIZED (BEAKER) (test 1.01 mmol/L 1.12-1.27 L code = 698) PH, BLOOD (BEAKER) (test code = 7.43 1810) BLOOD [id number] 03:00:00 Test Item Value Reference Range Interpretation Comments CULTURE (BEAKER) (test No growth in 5 days code = 1095) BLOOD [id number] 03:00:00 Test Item Value Reference Range Interpretation Comments CULTURE (BEAKER) (test No growth in 5 days code = 1095) RAD, CHEST, 1 VIEW, NON [id number] 01:12:00Reason for exam:->resp insuffciency, pulm edemaShould this be performed at the bedside?->YesFINAL REPORT RAD, CHEST, 1 VIEW, NON DEPT INDICATION: resp insuffciency, pulm edema COMPARISON: Prior day's exam FINDINGS: Portable frontal view of the chest. IMPRESSION: Support Lines: Interval extubation. Otherwise unchanged support apparatus. Lungs and pleura: Unchanged airspace and pleural opacities. No pneumothorax.Heart and mediastinum: Stable contours. Additional findings:None. Signed: Rona Irwin MDReport Verified Date/Time: 10/21/2019 01:12:01 POCT-GLUCOSE [id number] 00:07:00 Test Item Value Reference Range Interpretation Comments POC-GLUCOSE METER 121 mg/dL 70-110 H : TESTED A T [facility] 6720 (BEAKER) (test code = YVETTE [place], 1538) 59972: Regional Sales Director/Techni telma ID = [id number] for CHIKIS KINNEY POCT-GLUCOSE [id number] 17:19:00 Test Item Value Reference Range Interpretation Comments POC-GLUCOSE METER 121 mg/dL 70-110 H : TESTED A T [facility] 6720 (BEAKER) (test code = YVETTE TELLES ME, 1538) 66336: Regional Sales Director/Techni telma ID = [id number] for Rizwana Long [id number] 16:54:00 Test Item Value Reference Range Interpretation Comments PHOSPHORUS (BEAKER) (test code = 1.5 mg/dL 2.3-4.7 LL 604) Regional Sales Director ID - LEANN [facility] Serum Potassium level 2 hours after oral potassium replacement completed or 30 min after intravenous potassium replacement. [id number] 16:49:00 Test Item Value Reference Range Interpretation Comments POTASSIUM (BEAKER) (test code = 3.1 meq/L 3.5-5.1 L 379) [facility] Potassium level 2 hours after oral potassium replacement completed or 30 min after intravenous potassium replacement. [id number] 16:49:00 Test Item Value Reference Range Interpretation Comments MAGNESIUM (BEAKER) (test code = 1.3 mg/dL 1.6-2.6 L 627) Regional Sales Director [facility] - [facility] Potassium level 2 hours after oral potassium replacement completed or 30 min after intravenous potassium replacement.AMYLASE PERITONEAL [id number] 13:16:00 Test Item Value Reference Range Interpretation Comments AMYLASE, PERITONEAL FLUID (test code 1843 U/L See Comment #2 = [id number]) Amylase activity in peritoneal fluids of non-pancreatic origin is often less than or equal to the amylase activity in blood, whereas elevated amylase activity has been reported in fluid of pancreatic origin (five-folds or higher compared to contemporaneously collected blood specimen).This test has been modified from the grocery clerk selling's instructions and its performance characteristics were determined by [facility]. The laboratory is regulated under CLIA as qualified to perform high-complexity testing. This test has not been cleared or approved by the U.S. Food and Drug Administration. The reference intervals and other method performance specifications are unavailable for amylase in peritoneal fluid. Comparison of this result with the blood amylase is recommended.Regional Sales Director ID - LEANN F AMYLASE PERITONEAL [id number] 13:15:00 Test Item Value Reference Range Interpretation Comments AMYLASE, PERITONEAL FLUID (test code = 74 U/L See Comment #1 [id number]) Amylase activity in peritoneal fluids of non-pancreatic origin is often less than or equal to the amylase activity in blood, whereas elevated amylase activity has been reported in fluid of pancreatic origin (five-folds or higher compared to contemporaneously collected blood specimen).This test has been modified from the grocery clerk selling's instructions and its performance characteristics were determined by [facility]. The laboratory is regulated under CLIA as qualified to perform high-complexity testing. This test has not been cleared or approved by the U.S. Food and Drug Administration. The reference intervals and other method performance specifications are unavailable for amylase in peritoneal fluid. Comparison of this result with the blood amylase is recommended.Regional Sales Director ID - LEANN FPOCT- GLUCOSE [id number] 12:44:00 Test Item Value Reference Range Interpretation Comments POC-GLUCOSE METER 115 mg/dL 70-110 H : TESTED A T [facility] 6720 (BEAKER) (test code = [facility], 153) 88191: Regional Sales Director/Techni telma ID = [id number] for Rizwana Long HEMOGLOBIN [id number] 09:54:00 Test Item Value Reference Range Interpretation Comments HEMOGLOBIN A1C (BEAKER) (test code = 5.5 % 4.3-6.1 368) SPIN/CONCENTRATION [id number] 07:21:00 Test Item Value Reference Range Interpretation Comments CONCENTRATION CHARGED (BEAKER) (test Done code = 2657) SPIN/CONCENTRATION [id number] 07:20:00 Test Item Value Reference Range Interpretation Comments CONCENTRATION CHARGED (BEAKER) (test Done code = 2657) POCT-GLUCOSE [id number] 06:27:00 Test Item Value Reference Range Interpretation Comments POC-GLUCOSE METER 151 mg/dL 70-110 H : TESTED A T [facility] 6720 (BEAKER) (test code = [facility], 153) 23163: Regional Sales Director/Techni telma ID = [id number] for CHIKIS KINNEY BASIC METABOLIC [id number] 06:06:00 Test Item Value Reference Range Interpretation [...] S NOT APPLICABLE FOR DIALYSIS PATIEN TS. Regional Sales Director ID - DBOperator ID - [id number] 05:19:00 Test Item Value Reference Range Interpretation Comments PHOSPHORUS (BEAKER) (test code = 2.5 mg/dL 2.3-4.7 604) Regional Sales Director ID - [id number] 05:19:00 Test Item Value Reference Range Interpretation Comments MAGNESIUM (BEAKER) (test code = 2.1 mg/dL 1.6-2.6 627) Regional Sales Director ID - DBHEPATIC FUNCTION [id number] 05:19:00 Test Item Value Reference Range Interpretation [...] (test code = 41 U/L 6-55 347) Regional Sales Director ID - DBCALCIUM, [id number] 05:06:00 Test Item Value Reference Range Interpretation Comments CALCIUM IONIZED (BEAKER) (test 0.96 mmol/L 1.12-1.27 L code = 698) PH, BLOOD (BEAKER) (test code = 7.43 1810) BLOOD GAS, [id number] 04:55:00 Test Item Value Reference Range Interpretation [...] = 1819) 40.0 % While intubatedLACTIC ACID, [id number] 04:53:00 Test Item Value Reference Range Interpretation Comments LACTATE BLOOD ARTERIAL (2) 0.8 mmol/L 0.5-2.2 (BEAKER) (test code = 2874) Regional Sales Director ID - DBCBC (HEMOGRAM ONLY)2019-10-20 04:53:00 Test [...] (BEAKER) (test code = 413) BASIC METABOLIC [id number] 01:46:00 Test Item Value Reference Range Interpretation [...] S NOT APPLICABLE FOR DIALYSIS PATIEN TS. Regional Sales Director ID - DBRAD, CHEST, 1 VIEW, NON [id number] 01:46:00Reason for exam:- >intubated, resp insuffciencyShould this [...] Irwin Verified Date/Time: 10/20/2019 01:46:33 LACTIC ACID, ARTERIAL 2019-10-20 01:29:00 Test Item Value Reference Range Interpretation Comments LACTATE BLOOD 1.3 mmol/L 0.5-2.2 Specimen sligh tly ARTERIAL (2) (BEAKER) hemoly zed (test code = 2874) Regional Sales Director ID - DBBLOOD GAS, [id number] 00:59:00 Test Item Value Reference Range Interpretation [...] code = 1819) 40.0 % HEMOGLOBIN AND [id number] 00:58:00 Test Item Value Reference Range Interpretation Comments HEMOGLOBIN (BEAKER) (test code = 14.1 GM/DL 13.7-17.5 410) HEMATOCRIT (BEAKER) (test code = 42.8 % 40.1-51.0 411) Regional Sales Director ID - [id number](CELLAVISION MANUAL DIFF)2019-10-19 19:36:00 Test [...] CONCENTRATION Adequate (CELLAVISION)(BEAKER) (test code = 3438) Regional Sales Director ID - Marshall comments: Slide comments:TSH/FREE T4 IF INDICATED 2019-10-19 19:26:00 Test Item Value Reference Range Interpretation Comments THYROID STIMULATING HORMONE 1.733 uIU/mL 0.350-4.940 (BEAKER) (test code = 772) Regional Sales Director ID - [id number] 19:04:00 Test Item Value Reference Range Interpretation Comments PHOSPHORUS (BEAKER) (test code = 2.3 mg/dL 2.3-4.7 604) Regional Sales Director ID - [id number] 19:04:00 Test Item Value Reference Range Interpretation Comments MAGNESIUM (BEAKER) (test code = 1.7 mg/dL 1.6-2.6 627) Regional Sales Director ID - DBHEPATIC FUNCTION [id number] 19:04:00 Test Item Value Reference Range Interpretation [...] (test code = 44 U/L 6-55 347) Regional Sales Director ID - DBBASIC METABOLIC [id number] 19:04:00 Test Item Value Reference Range Interpretation [...] S NOT APPLICABLE FOR DIALYSIS PATIEN TS. Regional Sales Director ID - DBPROTHROMBIN [id number] 18:54:00 Test Item Value Reference Range Interpretation Comments PROTIME (BEAKER) (test code = 14.8 seconds 11.9-14.2 H 759) INR (BEAKER) (test code = 370) 1.2 <=5.9 Effective 08/23/2018: PT Reference Range ChangeNew: 11.9-14.2 Previous: 11.7- 14.7RECOMMENDED COUMADIN/WARFARIN INR THERAPY RANGESSTANDARD DOSE: 2.0-3.0 Includes: PROPHYLAXIS for venous thrombosis, systemic embolization; TREATMENT for venous thrombosis and/or pulmonary embolus.HIGH RISK: Target INR is 2.5-3.5 for patients wiht mechanical heart valves.[id number] 18:54:00 Test Item Value Reference Range Interpretation Comments FIBRINOGEN LEVEL (BEAKER) (test 487 mg/dl 225-434 H code = 658) [id number] 18:54:00 Test Item Value Reference Range Interpretation Comments PARTIAL THROMBOPLASTIN TIME 27.5 seconds 22.5-36.0 (BEAKER) (test code = 760) CBC W/PLT COUNT & AUTO [id number] 18:50:00 Test Item Value Reference Range Interpretation [...] (BEAKER) (test code = 2801) BLOOD GAS, [id number] 18:29:00 Test Item Value Reference Range Interpretation [...] 37.2 C (test code = 1818) CALCIUM, [id number] 18:29:00 Test Item Value Reference Range Interpretation Comments CALCIUM IONIZED (BEAKER) (test 1.01 mmol/L 1.12-1.27 L code = 698) PH, BLOOD (BEAKER) (test code = 7.45 1810) RAD, CHEST, 1 VIEW, NON [id number] 16:32:00Reason for exam:->post intubationShould this be performed at the bedside?->YesFINAL REPORT . Chest dated 10/19/2019 COMPARISON: Same day Clinical Information: post intubation Comment: Heart is enlarged. Pulmonary vasculature is indistinct. Interstitial disease is seen bilaterally suggestive of vascular congestion or pulmonary edema. No pleural effusion or pneumothorax is seen. Endotracheal tube is present with tip seen approximately 3 cm above the jimmy. Impression: Congestive failure. Signed: Esperanza Riddle MDReport Verified Date/Time: 10/19/2019 16:32:05 Reading Location: [facility] B1 C013W Consult Reading Room SARS-COV2/RT-PCR ([facility])2019-10-19 10:51:00 Test Item Value Reference Range Interpretation Comments SARS-COV2/RT-PCR (test code Negative Not Detected, Negative, = [id number]) See external report for linked test SARS-COV-[address] [facility] (test code = 5398312) Negative results do not preclude SARS-CoV-2 infection [...] of the Act.Fact Sheet for Healthcare Pro viders:https://[email or web address]/Documents/Xpert%20Xpress%20SARS%20CoV-2/Fact%20Sh eets/302-1349%48BHRP-HVP-7%20HEALTHCARE%20PROVIDERS%20FACT%20SHEET.pdfFact Sheet for Healthcare Patients:[email or web address]-[email or web address]/[email or web address]-[email or web address] -2%20PATIENT%20FACT%20SHEET.pdfPerforming Laboratory:[facility], [place] [address]TCCSFLW, [id number] 10:02:00 Test Item Value Reference Range Interpretation Comments CALCIUM IONIZED (BEAKER) (test 0.72 mmol/L 1.12-1.27 LL code = 698) PH, BLOOD (BEAKER) (test code = 7.39 1810) POTASSIUM-STAT [id number] 10:02:00 Test Item Value Reference Range Interpretation Comments POTASSIUM (BEAKER) (test code = 2.4 meq/L 3.6-5.5 LL 379) BLOOD GAS, [id number] 09:57:00 Test Item Value Reference Range Interpretation [...] code = 1819) 90.0 % SODIUM NA-STAT [id number] 09:57:00 Test Item Value Reference Range Interpretation Comments SODIUM (BEAKER) (test code = 381) 132 meq/L 136-145 L HGB/HCT (H&H) - STAT [id number] 09:57:00 Test Item Value Reference Range Interpretation Comments HEMOGLOBIN (BEAKER) (test code = 9.1 g/dL 13.0-16.8 L 410) HEMATOCRIT (BEAKER) (test code = 27.0 % 40.0-50.0 L 411) PH, [id number] 09:55:00 Test Item Value Reference Range Interpretation Comments PH ARTERIAL (BEAKER) (test code = 383) 7.39 7.35-7.45 GLUCOSE-STAT [id number] 09:55:00 Test Item Value Reference Range Interpretation Comments GLUCOSE RANDOM (BEAKER) (test code = 75 mg/dL 70-110 652) RAD, CHEST, 1 VIEW, NON [id number] 09:14:00Reason for exam:->de sat post intubationShould this be performed at the bedside?->YesFINAL REPORT RAD, CHEST, 1 VIEW, NON DEPT INDICATION: de sat post intubation COM PARISON: None FINDINGS: Portable frontal view of the chest. IMPRESSION: Support Lines: Endotracheal tube terminating 4.6 cm above the jimmy. Lungs and pleura: Hypoinflated lungs without consolidation or effusion. No pneumothorax.Heart and mediastinum: Prominent cardiac size, likely partially magnified by technique.Additional findings: None. Signed: JR Wright Robert MDReport Verified Date/Time: 10/19/2019 09:14:19 Reading Location: [facility] Radiology Reading Room [id number] 05:06:00 Test Item Value Reference Range Interpretation Comments PHOSPHORUS (BEAKER) (test code = 2.4 mg/dL 2.3-4.7 604) Regional Sales Director ID - PIAYA [id number] 05:06:00 Test Item Value Reference Range Interpretation Comments MAGNESIUM (BEAKER) (test code = 2.0 mg/dL 1.6-2.6 627) Regional Sales Director ID - PIAYA LBASIC METABOLIC [id number] 05:06:00 Test Item Value Reference Range Interpretation [...] S NOT APPLICABLE FOR DIALYSIS PATIEN TS. Regional Sales Director ID - NICKOTONIEL LHEPATIC FUNCTION [id number] 05:06:00 Test Item Value Reference Range Interpretation [...] code = 68 U/L 6-55 H 347) Regional Sales Director ID - JAMAR [id number] 05:06:00 Test Item Value Reference Range Interpretation Comments LIPASE (BEAKER) (test code = 749) 50 U/L 8-78 Regional Sales Director ID - NICKOTONIEL LCBC (HEMOGRAM ONLY)2019-10-19 04:09:00 Test Item Value [...] (BEAKER) (test code = 413) HEPATIC FUNCTION [id number] 23:09:00 Test Item Value Reference Range Interpretation [...] code = 73 U/L 6-55 H 347) Regional Sales Director ID - DBOperator ID - PIAYA LBASIC METABOLIC [id number] 23:09:00 Test Item Value Reference Range Interpretation [...] S NOT APPLICABLE FOR DIALYSIS PATIEN TS. Regional Sales Director ID - DBFL, [id number] 15:35:00Reason for exam:->choledocholithiasisFluoroscopic unit utilized for a procedure performed in the OR. No interpretation was requested. Refer to the operative report for findings. Refer to PACS for patient radiation dose information. [id number] 07:26:00 Test Item Value Reference Range Interpretation Comments PHOSPHORUS (BEAKER) (test code = 2.4 mg/dL 2.3-4.7 604) Regional Sales Director ID - JAMAR [id number] 07:26:00 Test Item Value Reference Range Interpretation Comments MAGNESIUM (BEAKER) (test code = 1.8 mg/dL 1.6-2.6 627) Regional Sales Director ID - PIAYA LBASIC METABOLIC [id number] 07:26:00 Test Item Value Reference Range Interpretation [...] S NOT APPLICABLE FOR DIALYSIS PATIEN TS. Regional Sales Director ID - JAMAR Careyimen slightly ictericHEPATIC FUNCTION [id number] 07:26:00 Test Item Value Reference Range Interpretation [...] code = 99 U/L 6-55 H 347) Regional Sales Director ID Carter Chaudhary slightly [id number] 07:26:00 Test Item Value Reference Range Interpretation Comments LIPASE (BEAKER) (test code = 749) 157 U/L 8-78 H Regional Sales Director ID Carter Chaudhary slightly ictericPROTHROMBIN [id number] 04:23:00 Test Item Value Reference Range Interpretation Comments PROTIME (BEAKER) (test code = 15.1 seconds 11.9-14.2 H 759) INR (BEAKER) (test code = 370) 1.2 <=5.9 Effective 08/23/2018: PT Reference Range ChangeNew: 11.9-14.2 Previous: 11.7- 14.7RECOMMENDED COUMADIN/WARFARIN INR THERAPY RANGESSTANDARD DOSE: 2.0-3.0 Includes: PROPHYLAXIS for venous thrombosis, systemic embolization; TREATMENT for venous thrombosis and/or pulmonary embolus.HIGH RISK: Target INR is 2.5-3.5 for patients wiht mechanical heart valves.CBC (HEMOGRAM [...] 0-0 (BEAKER) (test code = 413) PROTHROMBIN [id number] 06:00:00 Test Item Value Reference Range Interpretation Comments PROTIME (BEAKER) (test code = 14.9 seconds 11.9-14.2 H 759) INR (BEAKER) (test code = 370) 1.2 <=5.9 Effective 08/23/2018: PT Reference Range ChangeNew: 11.9-14.2 Previous: 11.7- 14.7RECOMMENDED COUMADIN/WARFARIN INR THERAPY RANGESSTANDARD DOSE: 2.0-3.0 Includes: PROPHYLAXIS for venous thrombosis, systemic embolization; TREATMENT for venous thrombosis and/or pulmonary embolus.HIGH RISK: Target INR is 2.5-3.5 for patients wiht mechanical heart valves.[id number] 05:40:00 Test Item Value Reference Range Interpretation Comments PHOSPHORUS (BEAKER) (test code = 3.1 mg/dL 2.3-4.7 604) Regional Sales Director ID - [id number] 05:40:00 Test Item Value Reference Range Interpretation Comments MAGNESIUM (BEAKER) (test code = 1.8 mg/dL 1.6-2.6 627) Regional Sales Director ID - BSBASIC METABOLIC [id number] 05:40:00 Test Item Value Reference Range Interpretation [...] S NOT APPLICABLE FOR DIALYSIS PATIEN TS. Regional Sales Director ID - BSSpecimen slightly ictericHEPATIC FUNCTION [id number] 05:40:00 Test Item Value Reference Range Interpretation [...] code = 185 U/L 6-55 H 347) Regional Sales Director ID - BSSpecimen slightly [id number] 05:40:00 Test Item Value Reference Range Interpretation Comments LIPASE (BEAKER) (test code = 749) 574 U/L 8-78 H Regional Sales Director ID - BSSpecimen slightly ictericLACTIC ACID, [id number] 05:26:00 Test Item Value Reference Range Interpretation Comments LACTATE BLOOD VENOUS 1.63 mmol/L 0.50-2.20 Specime n slightly (2) (BEAKER) (test hemolyzed code = 2872) Regional Sales Director ID - BSSpecimen slightly ictericCBC (HEMOGRAM ONLY)2019-10-17 [...] 0-0 (BEAKER) (test code = 413) FL, [id number] 17:10:00INTRA OP IMAGING Reason for exam:->abnormal imagingFluoroscopic unit utilized for a procedure performed in the OR. No interpretation was requested. Refer to the operative report for findings. Refer to PACS for patient radiation dose information.[id number] 11:10:00 Test Item Value Reference Range Interpretation Comments PROCALCITONIN (BEAKER) (test code 0.78 ng/mL <0.05 H = 3036) SEPSIS RISK (ng/mL)Low: 0.05-0.50Intermediate: 0.51-2.00High: >=2.01LACTIC ACID, [id number] 10:39:00 Test Item Value Reference Range Interpretation Comments LACTATE BLOOD VENOUS 1.72 mmol/L 0.50-2.20 Specime n slightly (2) (BEAKER) (test hemolyzed code = 2872) Regional Sales Director ID - LMSpecimen slightly ictericSARS-COV2/RT-PCR ([facility]) 2019-10-16 10:08:00 Test Item Value Reference Range Interpretation Comments SARS-COV2/RT-PCR (test Negative Not Detected, Negative, code = 4404835) See external report for linked test SARS-COV-[address] [facility] (test code = 0899304) Negative result for this test determines that SARS-CoV-2 RNA was not present in the specimen above the Limit of Detection (LOD). However, Negative results do not preclude SARS-CoV-2 infection and should not be used as the sole basis for treatment or patient management decisions. Negative results must be [...] justifying the authorization of the emergency use ofin vitro diagnostic tests for detection and/or diagnosis of COVID-19 is terminated under Section 564(b)(2) of the Act or the EUA is revoked under Section 564(g) of the Act.Fact Sheet for Healthcare Prov iders:https://www.[employer]/sites/default/files/product/documents/Fact_Sheet_HC _Oojpvkuax_Cyid_JCHI-QqT-8.pdfFact Sheet for Healthcare Patients:https://www.[employer]/sites/default/files/product/docume nts/Wafg_Hybqt_Ddkuibvz_Wabv_CBDD-BoL-0.pdfPerforming Laboratory:[facility], [place] [address]NUPMUUDRQQO TIME/INR 2019-10-16 07:12:00 Test Item Value Reference Range Interpretation Comments PROTIME (BEAKER) (test code = 13.8 seconds 11.9-14.2 759) INR (BEAKER) (test code = 370) 1.1 <=5.9 Effective 08/23/2018: PT Reference Range ChangeNew: 11.9-14.2 Previous: 11.7- 14.7RECOMMENDED COUMADIN/WARFARIN INR THERAPY RANGESSTANDARD DOSE: 2.0-3.0 Includes: PROPHYLAXIS for venous thrombosis, systemic embolization; TREATMENT for venous thrombosis and/or pulmonary embolus.HIGH RISK: Target INR is 2.5-3.5 for patients wiht mechanical heart valves.[id number] 05:53:00 Test Item Value Reference Range Interpretation Comments PHOSPHORUS (BEAKER) (test code = 4.0 mg/dL 2.3-4.7 604) Regional Sales Director ID - DEMARCO [id number] 05:53:00 Test Item Value Reference Range Interpretation Comments MAGNESIUM (BEAKER) (test code = 1.7 mg/dL 1.6-2.6 627) Regional Sales Director ID - DEMARCO WBASIC METABOLIC [id number] 05:53:00 Test Item Value Reference Range Interpretation [...] S NOT APPLICABLE FOR DIALYSIS PATIEN TS. Regional Sales Director ID Carter Perkins moderately ictericHEPATIC FUNCTION [id number] 05:53:00 Test Item Value Reference Range Interpretation [...] code = 346 U/L 6-55 H 347) Regional Sales Director ID Carter Perkins moderately ictericCBC (HEMOGRAM ONLY)2019-10-16 05:21:00 Test [...] 0-0 (BEAKER) (test code = 413) PROTHROMBIN [id number] 22:56:00 Test Item Value Reference Range Interpretation Comments PROTIME (BEAKER) (test code = 13.3 seconds 11.9-14.2 759) INR (BEAKER) (test code = 370) 1.0 <=5.9 Effective 08/23/2018: PT Reference Range ChangeNew: 11.9-14.2 Previous: 11.7- 14.7RECOMMENDED COUMADIN/WARFARIN INR THERAPY RANGESSTANDARD DOSE: 2.0-3.0 Includes: PROPHYLAXIS for venous thrombosis, systemic embolization; TREATMENT for venous thrombosis and/or pulmonary embolus.HIGH RISK: Target INR is 2.5-3.5 for patients wiht mechanical heart valves.CBC W/PLT COUNT & AUTO [id number] 22:50:00 Test Item Value Reference Range Interpretation [...] 0-1 PERCENT (BEAKER) (test code = 2801) [id number] 22:45:00 Test Item Value Reference Range Interpretation Comments PHOSPHORUS (BEAKER) (test code = 3.9 mg/dL 2.3-4.7 604) Regional Sales Director ID - [id number] 22:45:00 Test Item Value Reference Range Interpretation Comments MAGNESIUM (BEAKER) (test code = 1.8 mg/dL 1.6-2.6 627) Regional Sales Director ID - BSCOMPREHENSIVE METABOLIC [id number] 22:45:00 Test Item Value Reference Range Interpretation [...] S NOT APPLICABLE FOR DIALYSIS PATIEN TS. Regional Sales Director ID - BSSpecimen moderately ictericBILIRUBIN, [id number] 22:45:00 Test Item Value Reference Range Interpretation Comments BILIRUBIN DIRECT (BEAKER) (test 4.6 mg/dL 0.1-0.5 H code = 706) Regional Sales Director ID - [id number] 22:45:00 Test Item Value Reference Range Interpretation Comments LIPASE (BEAKER) (test code = 749) 978 U/L 8-78 H Regional Sales Director ID - BSSpecimen moderately [id number] 08:46:00 Test Item Value Reference Range Interpretation Comments APPEARANCE (test code = Clear Clear 5293942181) COLOR (test code = Yellow Yellow 9266267742) PH (test code = 4.8-8.0 4385788139) SP GRAVITY (test code = 1.003-1.030 6427780960) GLU U QUAL (test code = Normal Normal 5231662648) BLOOD (test code = Negative Negative 6587614001) KETONES (test code = Negative Negative 4180005966) PROTEIN (test code = Negative Negative 2887-8) UROBILIN (test code = 2.0 mg/dL Normal A 5086739029) BILIRUBIN (test code = Negative Negative 7049629351) NITRITE (test code = Negative Negative 9188497119) LEUK JEANNINE (test code = Negative Negative 7345865221) RBC/HPF (test code = <1 See_Comment [Autom ated message] 9006063090) The system [employer] generated this result transmit maura reference range : 0 - 3 HPF. The refe rence range was not u sed to interpret th is result as normal/abnormal . WBC/HPF (test code = See_Comment H [Autom ated message] 5246265225) The system [employer] generated this result transmit maura reference range : 0 - 5 HPF. The refe rence range was not u sed to interpret th is result as normal/abnormal . BACTERIA (test code = Few Negative A 0877677475) MUCOUS (test code = Slight Negative LPF A 8247402548) SQ EPITH (test code = HPF 0868819355) TRANS EPI (test code = <1 See_Comment [Aut omated message] 5163756133) The system [employer] generated this result transmit maura reference range : <=1 HPF. The refere nce range was not u sed to interpret th is result as normal/abnormal . Lab Interpretation (test Abnormal code = 58149-0) [facility] [id number] 08:23:00 Test Item Value Reference Range Interpretation Comments NA (test code = 136 mmol/L 135-145 1232781599) K (test code = 4.0 mmol/L 3.5-5 4297520870) CL (test code = 103 mmol/L 98-108 3383467070) CO2 TOTAL (test code = 24 mmol/L 23-31 8195171461) AGAP (test code = 2-16 0651360699) BUN (test code = 11 mg/dL 7-23 6075041845) GLUCOSE (test code = 125 mg/dL 70-110 H 0489887628) CREATININE (test code = 0.78 mg/dL 0.6-1.25 2783967573) TOTAL BILI (test code = 1.9 mg/dL 0.1-1.1 H 6747577663) CALCIUM (test code = 9.1 mg/dL 8.6-10.6 7649753206) T PROTEIN (test code = 7.9 g/dL 6.3-8.2 4552406611) ALBUMIN (test code = 4.3 g/dL 3.5-5 3535749088) ALK PHOS (test code = 126 U/L 34-122 H 0746696432) ALTv (test code = 161 U/L 5-50 H 1742-6) AST(SGOT) (test code = 198 U/L 13-40 H 4447384228) eGFR Calculation mL/min/1.73m2 (Non-) (test code = 9867567443) eGFR Calculation mL/min/1.73m2 () (test code = 1533215625) MITCH (test code = MITCH) Association of [...] tests). Lab Interpretation Abnormal (test code = 73780-7) [facility] Worth[facility], [id number] 08:23:00 Test Item Value Reference Range Interpretation Comments LIPASE (test code = 3474618606) 17 U/L 0-220 Lab Interpretation (test code = Normal 71954-4) [facility] WorthCBC WITH [id number] 08:09:00 Test Item Value Reference Range Interpretation Comments WBC (test code = See_Comment H [Automated 8373-2) message] The sy stem which generated this result transmitted reference range : 4.20 - 10.70 10*3/?L. The reference range was not used to interpret this result as normal/abnormal . RBC (test code = See_Comment [Automated 709-8) message] The sy stem which generated this [...] RDW-SD (test code = 40.7 fL 38.5-51.6 25981-0) RDW-CV (test code = 13.0 % 12.1-15.4 788-0) PLT (test code = See_Comment H [Automated 467-3) message] The sy stem which generated this result transmitted reference range : 150 - 328 10*3/ ?L. The reference r kirby was not used to interpret this result as normal/abnormal . MPV (test code = 8.6 fL 9.8-13 L 42009-1) NRBC/100 WBC (test See_Comment [Automat ed code = 8719456936) message] The system which generated this result transmitted reference range : 0.0 - 10.0 /100 WBCs. The refer ence range was not u sed to interpret th is result as normal/abnormal . NRBC x10^3 (test code <0.01 See_Comment [Auto mated = 5347425642) message] The s ystem which generated this result transmitted reference range : 10*3/?L. The reference range was not used to interpret this result as normal/abnormal . GRAN MAT (NEUT) % 78.6 % (test code = 770-8) IMM GRAN % (test code 0.30 % = 2683777834) LYMPH % (test code = 10.8 % 736-9) MONO % (test code = 7.2 % 5905-5) EOS % (test code = 2.9 % 713-8) BASO % (test code = 0.2 % 706-2) GRAN MAT x10^3(ANC) 9.65 10*3/uL 1.99-6.95 H (test code = 5220904631) IMM GRAN x10^3 (test 0.04 10*3/uL 0-0.06 code = 0961062923) LYMPH x10^3 (test code 1.33 10*3/uL 1.09-3.23 = 731-0) MONO x10^3 (test code 0.88 10*3/uL 0.36-1.02 = 742-7) EOS x10^3 (test code = 0.36 10*3/uL 0.06-0.53 711-2) BASO x10^3 (test code 0.03 10*3/uL 0.01-0.09 = 704-7) Lab Interpretation Abnormal (test code = 10289-1) [facility]
[2022-09-12 12:16] LABS: Absolute Lymphocytes (CBC) 2.2 K/uL (0.7-4.9); Hematocrit 40.7 % (39.6-49.0); Lymphocytes % 28.5 % (15.3-44.8); MCV 88.4 fL (80-100); MPV 6.9 fL (7.6-11.3)
[2022-09-12 12:46] LABS: Magnesium 2.1 mg/dL (1.6-2.4); Potassium 3.9 mEq/L (3.5-5.1); Thyroid Stimulating Hormone 1.38 uIU/mL (0.358-3.740); Troponin High Sensitivity 16.8 pg/mL (<58.9)
--- NOTE | 2022-09-12 14:01 | EDPHYS ---
Physician Documentation [facility] Name: Antelmo Vaughn Age: 22 yrs Sex: Male : 2000 Arrival Date: 09/12/2022 Time: 11:44 Bed 6 Private MD: ED Physician Cydney Weiner HPI: 09/12 11:54 This 22 yrs old Black Male presents to ER via EMS with complaints of Chest Pain. kb 11:54 The patient presents with a history of heart racing. Context: The symptoms occur at kb rest. Onset: The symptoms/episode began/occurred last night. Duration: The patient or guardian reports a single episode, that is now resolved. Modifying factors: The symptoms are aggravated by nothing. The symptoms are alleviated by nothing. Associated signs and symptoms: Pertinent positives: chest pain, SOB. Severity of symptoms: At their worst the symptoms were moderate in the emergency department the symptoms have improved. The patient has not experienced similar symptoms in the past. The patient has not recently seen a physician. Pt reports palpitations, chest soreness and shortness of breath that started around 2300 last night. States palpitations resolved, but soreness and slight shortness of breath continues. States he has had these symptoms once before 2 days ago. Denies any medical history, anxiety, drug use, etoh use, cough, congestion, fever. Attests to vaping. . Historical: - Allergies: 11:47 No Known Allergies; ph 11:47 No Known Allergies; ko1 - Home Meds: 11:47 None [Active]; ko1 - PMHx: 11:47 None; ph - PSHx: 11:47 Cholecystectomy; ph 11:47 Cholecystectomy; ko1 - Immunization history:: Adult Immunizations unknown, Adult Immunizations up to date. - Social history:: Smoking status: Reported history of juuling and/or vaping. Smoking status: Reported history of juuling and/or vaping. ROS: 11:54 Constitutional: Negative for fever, chills, and weight loss. kb 11:54 Cardiovascular: Positive for chest pain, palpitations, Negative for edema, orthopnea, paroxysmal nocturnal dyspnea. 11:54 Respiratory: Positive for shortness of breath. 11:54 All other systems are negative. Exam: 11:54 Constitutional: This is a well developed, well nourished patient who is awake, alert, kb and in no acute distress. Head/Face: Normocephalic, atraumatic. ENT: Moist Mucous membranes Cardiovascular: Regular rate and rhythm with a normal S1 and S2. No gallops, murmurs, or rubs. No pulse deficits. Respiratory: Respirations even and unlabored. No increased work of breathing. Talking in full sentences Abdomen/GI: Soft, non-tender. No distention Skin: Warm, dry with normal turgor. Normal color. MS/ Extremity: Pulses equal, no cyanosis. Neurovascular intact. Full, normal range of motion. Neuro: Awake and alert, GCS 15, oriented to person, place, time, and situation. Moves all extremities. Normal gait. 13:14 ECG was reviewed by the Attending Physician. kb Vital Signs: 11:45 BP 121 / 65; Pulse 59; Resp 18; Temp 97.8; Pulse Ox 95% ; Weight 147.42 kg; Height 6 ph ft. 5 in. ; 12:51 BP 128 / 79; Pulse 64; Resp 18; Pulse Ox 100% ; ko1 12:55 BP 103 / ???; Pulse 70; Resp 18; Pulse Ox 99% ; ko1 11:45 Body Mass Index 38.54 (147.42 kg, 195.58 cm) ph MDM: 11:45 Patient medically screened. kb 11:56 Differential diagnosis: arrythmia, dehydration, stress disorder. Data reviewed: vital kb signs, nurses notes. Historians other than the Patient: EMS: [facility]. 13:59 Independent interpretation of the following test(s) in the Emergency Department X-Ray: kb My interpretation is chest x-ray normal. Test considered but Not performed: CT: CT chest considered, but d-dimer normal. Counseling: I had a detailed discussion with the patient and/or guardian regarding: the historical points, exam findings, and any diagnostic results supporting the discharge/admit diagnosis, lab results, radiology results, the need for outpatient follow up, a family practitioner, to return to the emergency department if symptoms worsen or persist or if there are any questions or concerns that arise at home. 09/12 12:07 Order name: Basic Metabolic Panel; Complete Time: 12:48 EDMS 09/12 12:07 Order name: Troponin High Sensitivity; Complete Time: 12:48 EDMA 09/12 12:07 Order name: NT PRO-BNP; Complete Time: 12:48 EDMA 09/12 12:07 Order name: Magnesium; Complete Time: 12:48 EDMA 09/12 12:07 Order name: Thyroid Stimulating Hormone; Complete Time: 12:48 EDMA 09/12 12:07 Order name: CBC with Automated Diff; Complete Time: 12:43 EDMS 09/12 12:08 Order name: D-Dimer; Complete Time: 12:26 EDMA 09/12 11:46 Order name: XRAY Chest (1 view); Complete Time: 14:14 kb 09/12 11:46 Order name: EKG; Complete Time: 13:07 kb 09/12 11:46 Order name: Cardiac monitoring; Complete Time: 11:49 kb 09/12 11:46 Order name: EKG - Nurse/Tech; Complete Time: 12:02 kb 09/12 11:46 Order name: IV Saline Lock; Complete Time: 11:59 kb 09/12 11:46 Order name: Labs collected and sent; Complete Time: 11:59 kb 09/12 11:46 Order name: O2 Per Protocol; Complete Time: 11:49 kb 09/12 11:46 Order name: O2 Sat Monitoring; Complete Time: 11:49 kb EC:14 Rate is 55 beats/min. Rhythm is regular. QRS [place] is Normal. ND interval is normal at kb 170 msec. QRS interval is normal at 106 msec. QT interval is normal at 428 msec. Administered Medications: No medications were administered Disposition Summary: 09/12/22 14:00 Discharge Ordered Location: Home kb Condition: Stable kb Diagnosis - Palpitations kb Followup: kb - With: Emergency Department - When: As needed - Reason: Worsening of condition Followup: kb - With: Private Physician - When: 2 - 3 days - Reason: Recheck today's complaints, Continuance of care, Re-evaluation by your physician Discharge Instructions: - Discharge Summary Sheet kb - Palpitations, Tpmd-ma-Plau kb Forms: - Medication Reconciliation Form kb - Thank You Letter kb - Antibiotic Education kb - Prescription Opioid Use kb Signatures: Dispatcher [employer] [facility] Lakeisha Rao, FIELD SUPPORT REPRESENTATIVE-C FIELD SUPPORT REPRESENTATIVE-Clarissa Shahid, RN RN Carmelita Nassar RN RN ko1 Corrections: (The following items were deleted from the chart) 13:49 13:07 CBC+H.LAB.BRZ ordered. EDMS EDMS 13:50 13:07 BASIC METABOLIC PANEL+C.LAB.BRZ ordered. EDMS EDMS 13:50 13:07 D-DIMER+COAG.LAB.BRZ ordered. EDMS EDMS 13:50 13:07 MAGNESIUM+C.LAB.BRZ ordered. EDMS EDMS 13:50 13:07 PROBNP+C.LAB.BRZ ordered. EDMS EDMS 13:50 13:07 Troponin High Sensitivity+C.LAB.BRZ ordered. EDMS EDMS 13:50 13:07 THYROID STIMULAT HORMONE+C.LAB.BRZ ordered. EDMS EDMS
--- NOTE | 2022-09-12 14:01 | ER ---
Nurse's Notes [facility] Name: Antelmo Vaughn Age: 22 yrs Sex: Male : 2000 Arrival Date: 09/12/2022 Time: 11:44 Bed 6 Private MD: Diagnosis: Palpitations Presentation: 09/12 11:45 Chief complaint:. Coronavirus screen: Vaccine status: Patient reports receiving the 2nd ph dose of the covid vaccine. Ebola Screen: No symptoms or risks identified at this time. Initial Sepsis Screen: Does the patient meet any 2 criteria? No. Patient's initial sepsis screen is negative. Does the patient have a suspected source of infection? No. Patient's initial sepsis screen is negative. Risk Assessment: Do you want to hurt yourself or someone else? Patient reports no desire to harm self or others. Onset of symptoms was September 12, 2022. 11:45 Acuity: RICKEY 3 ph 11:45 Chief complaint: EMS states: patient called for left sided chest pain/soreness. He ko1 states that he does vape but denies any other drug use or smoking. He also stated that he felt like his heart was racing last night. Coronavirus screen: At this time, the client does not indicate any symptoms associated with coronavirus-19. Ebola Screen: No symptoms or risks identified at this time. Initial Sepsis Screen: Does the patient meet any 2 criteria? No. Patient's initial sepsis screen is negative. Does the patient have a suspected source of infection? No. Patient's initial sepsis screen is negative. Risk Assessment: Do you want to hurt yourself or someone else? Patient reports no desire to harm self or others. Onset of symptoms was September 12, 2022. 11:45 Method Of Arrival: EMS: [facility] ko1 11:45 Acuity: RICKEY 3 ko1 Triage Assessment: 11:47 General: Appears in no apparent distress. comfortable, Behavior is calm, cooperative, ko1 appropriate for age. Pain: Complains of pain in chest. 11:48 General: Appears in no apparent distress. Behavior is calm, cooperative, Denies fever, ph feeling ill. Pain: Complains of pain in chest. Neuro: Level of Consciousness is awake, alert, obeys commands, Oriented to person, place, time, situation. Cardiovascular: Reports chest pain, lightheadedness, palpitations, Capillary refill < 3 seconds in bilateral fingers Patient's skin is warm and dry. Respiratory: Airway is patent Respiratory effort is even, unlabored. Derm: Skin is pink, warm \T\ dry. Historical: - Allergies: 11:47 No Known Allergies; ph 11:47 No Known Allergies; ko1 - Home Meds: 11:47 None [Active]; ko1 - PMHx: 11:47 None; ph - PSHx: :47 Cholecystectomy; ph 11:47 Cholecystectomy; ko1 - Immunization history:: Adult Immunizations unknown, Adult Immunizations up to date. - Social history:: Smoking status: Reported history of juuling and/or vaping. Smoking status: Reported history of juuling and/or vaping. Screenin:47 [facility] ED Fall Risk Assessment (Adult) History of falling in the last 3 months, ph including since admission No falls in past 3 months (0 pts) Confusion or Disorientation No (0 pts) Intoxicated or Sedated No (0 pts) Impaired Gait No (0 pts) Mobility Assist Device Used No (0 pt) Altered Elimination No (0 pt) Score/Fall Risk Level 0 - 2 = Low Risk Oriented to surroundings, Maintained a safe environment, Hourly rounding (assess needs \T\ fall precautionary measures) done. Abuse screen: Denies threats or abuse. Denies injuries from another. Nutritional screening: No deficits noted. Tuberculosis screening: No symptoms or risk factors identified. Assessment: 12:00 Neuro: No deficits noted. Cardiovascular: Reports chest soreness. Respiratory: No ko1 deficits noted. GI: No deficits noted. : No deficits noted. EENT: No deficits noted. Derm: No deficits noted. Musculoskeletal: No deficits noted. Vital Signs: 11:45 BP 121 / 65; Pulse 59; Resp 18; Temp 97.8; Pulse Ox 95% ; Weight 147.42 kg; Height 6 ph ft. 5 in. ; 12:51 BP 128 / 79; Pulse 64; Resp 18; Pulse Ox 100% ; ko1 12:55 BP 103 / ???; Pulse 70; Resp 18; Pulse Ox 99% ; ko1 11:45 Body Mass Index 38.54 (147.42 kg, 195.58 cm) ED Course: :45 Patient arrived in ED. ko1 11:45 Tristan, Carmelita, RN is Primary Nurse. ko1 11:45 Primary Nurse role handed off by Carmelita Hudson, CHOCO ph 11:45 Clarissa Diaz, RN is Primary Nurse. ph 11:45 Lakeisha Rao FNP-C [facility]. kb 11:45 Cydney Weiner MD is Attending Physician. kb 11:47 Triage completed. ph 11:47 Patient has correct armband on for positive identification. Placed in gown. Bed in low ph position. Call light in reach. Side rails up X2. Pulse ox on. NIBP on. 11:47 Arm band placed on right wrist. Patient placed in an exam room, on a stretcher, on ko1 classroom monitor, on pulse oximetry, Patient notified of wait time. 12:00 Inserted saline lock: 20 gauge in right antecubital area, using aseptic technique. ko1 Blood collected. 12:51 IV discontinued, intact, bleeding controlled, No redness/swelling at site. Pressure ko1 dressing applied. 13:49 XRAY Chest (1 view) In Process Unspecified. EDMS 14:28 No provider procedures requiring assistance completed. ph Administered Medications: No medications were administered Medication: 11:47 VIS not applicable for this client. ph Outcome: 14:00 Discharge ordered by . kb 14:28 Discharged to home ambulatory. ph 14:28 Condition: good 14:28 Discharge instructions given to patient, Instructed on discharge instructions, follow up and referral plans. Demonstrated understanding of instructions, follow-up care. 14:28 Patient left the ED. ph Signatures: Dispatcher [employer] [facility] Lakeisha Rao FNP-C MATERIAL MANAGER-Ckb Clarissa Diaz RN RN ph Carmelita Hudson, RN RN ko1
--- NOTE | 2022-09-12 14:12 | RAD REPORT ---
[facility] 1:47 pm CLINICAL HISTORY: Chest pain;Palpitations COMPARISON: Chest Single View dated 01/17/2021; CHEST PA AND LAT 2 VIEW dated 10/02/2013; CHEST PA AND LAT 2 VIEW dated 2000 TECHNIQUE: Portable AP view of the chest. FINDINGS: The lungs are clear. No pneumothorax or effusion. The cardiomediastinal contours are unre markable. IMPRESSION: No acute cardiopulmonary process.
[2022-09-12 14:43] VITALS: TEMP 97.8
[2022-09-12 14:53] VITALS: BP 128/79
[2022-09-12 14:54] VITALS: O2SAT 99
--- NOTE | 2022-09-13 17:51 | EKG ---
Test Date: 2022-09-12 Test Time: 12:08:23 Pneumatic Hoist Operator: TL MEASUREMENT RESULTS: Intervals: Rate: 58 ID: [id number] QRSD: 106 QT: 440 QTc: 431 [place]: P: 4 ID: [id number] QRS: -12 T: 17 INTERPRETIVE STATEMENTS: Poor data quality, interpretation may be adversely affected Sinus bradycardia with sinus arrhythmia Otherwise normal ECG Compared to ECG 01/17/2021 19:44:05 Sinus rhythm no longer present Left ventricular hypertrophy no longer present T-wave abnormality no longer present Electronically Signed On 09-13-22 17:49:24 CDT by Karan Dunn
== END 2022-09-12 14:28 | disposition home or self-care (01) ==
LOC: ER 11:44
DX: R00.2 Palpitations (principal)
CPT/HCPCS: 36415; 71045; 80048; 83735; 83880; 84443; 84484; 85025; 85379; 93005; 99284

== ENCOUNTER 2023-02-14 21:44 | Emergency (ER) | payer SELFPAY ==
--- OUTSIDE RECORDS SUMMARY | 2023-02-14 21:50 | XMS REPORT | Continuity of Care Document ---
:2000 Author Organization [facility] t Address [address] [facility] [address] [place] [address] Care Team Providers Name Role Phone No, Pcp [facility] Primary Care Physician Unavailable RYLEY MURILLO Attending Clinician Unavailable RAD TIDWELL Attending Clinician Unavailable Doctor Unassigned, [place] Attending Clinician Unavailable Gaurang Manjarrez MD Attending Clinician RYLEY MURILLO Admitting Clinician Unavailable RAD TIDWELL Admitting Clinician Unavailable RONA LOCKETT Admitting Clinician Unavailable Payers Payer Name Policy Type Policy Number Effective Date Expiration Date [place] [facility] [id number] 2016 HEALTH 00:00:00 MEDICAID [facility] [id number] Problems Condition Condition Condition Status Onset Resolution Last Treating Co mments Source Name Details Category Date Date Treatment Clinician Date ADHD ADHD Disease [facility]ur[facility] GERD GERD Disease Recurre [facility] (gastroeso (gastroeso nce 7-25 Summer kes phageal phageal 00:00: Medical reflux [...] Disease Active Overview: [facility] explor[facility]ator -[facility] 00[facility]: g of this Medical laparotomy laparotomy 00 note Ce nter might be different from the original. Lap converted to open. Pancreati c abscess debride and drained, cholecyst ectomy Hypokalemi Hypokalemi Disease Active [facility] Hypomagnes Hypomagnes Disease Active [facility] emia emia 25 [facility] Choledocho Choledocho Disease Active [facility] lithiasis lithiasis 20 [facility] 00:[facility]: Medical 00 Center Acute Acute Disease Active [facility] cholecysti cholecysti 20 Summer kes tis tis 00:00: Medical 00 [place] Left ankle Left ankle Disease Active 2016- U nivers pain pain 1-10 ity of 00:00: [address] On On Disease Recurre [facility] mechanical mechanical nce Summer kes ly ly Medical assisted assisted Center ventilatio ventilatio n n Respirator Respirator Disease Active [facility] insufficie insufficie Me dical ncy ncy Center Allergies, Adverse Reactions, Alerts Allergy Allergy Status Severity Reaction(s) Onset Inactive Treating Comm ents Source Name Type Date Date Clinician NO KNOWN Allergy Active [facility] ALLERGIE [facility] NO KNOWN Drug Active Univers ALLERGIE Class ity of S [facility] Family History Family Member Diagnosis Comments Start Date Stop Date Source Paternal aunt COPD [facility] Maternal grandfather Diabetes [facility] Maternal grandfather Heart disease [facility] Natural mother Diabetes [facility] Social History Social Habit Start Date Stop Date Quantity Comments Source Exposure to Not sure University of SARS-CoV-2 (event) [facility] History SDOH [facility] Alcohol Std Drinks Medica [facility] History [facility] Alcohol Binge Medical Kate [facility] Sexual orientation [facility] Alcohol intake 2019-10-22 2019-10-22 Current [facility] 00:[facility]:00 00:00:00 non-drinker of Medical Ce nter alcohol (finding) Tobacco use and 2019-10-16 2019-10-[address] Summer kes exposure 00:00:00 00:00:00 tobacco non-user Medical Center History SDOH 2019-10-16 2019-10-16 1 [facility] Alcohol Frequency 00:00:00 00:00:00 Medical Center Sex Assigned At [address] Summer kes 00:00:00 00:00:00 Medical Center Smoking Status Start Date Stop Date Source Never smoker [facility] Medications Ordered Filled Start Stop Current Ordering Indication Dosage Frequency Signature Comments Components Source Medication Medication Date Date Medication? Clinician (SIG) Name Name traMADoL Yes 50mg Take [address] (ULTRAM) 50 8-04 tablet (50 Summer kes mg tablet 00:00: mg total) Med ical 00 by mouth Center every 8 (eight) hours as needed for Pain. Max Daily Amount: 150 mg traMADoL Yes 50mg Take [address] [facility] (ULTRAM) 50 8-04 tablet (50 Summer kes mg tablet 00:00: mg total) Med ical 00 by mouth Center every 8 (eight) hours as needed for Pain. Max Daily Amount: 150 mg iohexol 2019-0 2020- No 120mL 120 mL, Unive rs (OMNIPAQUE 10-09 Intravenou it y of 350 09:00: 09:00 s, ONCE, 1 [place] BULK-150 00 :00 dose, Wed Medica l mL) 10/10/19 at [place] injection 0400, 120 mL Routine maalox:diph 2019-2019- No 15mL 15 mL, Uni vers enhydrAMINE 10-09 Oral, ity of :lidocaine 09:00: 08:02 ONCE, 1 [place] as 2 % viscous 00 :00 dose, Wed Med ical 1:1:1 10/10/19 at [place] (FIRST-MOUT 0400, HWASH BLM) Routine oral suspension 15 mL ondansetron Yes [id number] 4mg Take 1 Univers 4 mg 6-15 tablet by ity of disintegrat 00:00: mouth [place] ing tablet 00 every 4 Medica l (four) Branch hours as needed for Nausea and Vomiting (N/V). dicyclomine 2019-0 Yes [id number] 10mg Take 1 Univers (BENTYL) 10 6-15 capsule by it y of mg capsule 00:00: mouth 4 [place] (four) Medical times Branch daily. docusate 2019-0 Yes [id number] 250mg Take 1 Un rosalia sodium 250 6-15 capsule by ity of mg capsule 00:00: mouth [place] 00 daily. Medical Branch famotidine Yes [id number] 20mg Take 1 U nivers 20 mg 6-15 tablet by ity of tablet 00:00: mouth 2 [place] 00 (two) Medical times Branch daily. ondansetron 2018-0 Yes [id number] 4mg Take 1 Univers 4 mg 6-15 tablet by ity of disintegrat 00:00: mouth [place] ing tablet 00 every 4 Medica l (four) Branch hours as needed for Nausea and Vomiting (N/V). dicyclomine 2018- Yes [id number] 10mg Take 1 Univers (BENTYL) 10 6-15 capsule by it y of mg capsule 00:00: mouth [place] (four) Medical times Branch daily. docusate 2018-0 Yes [id number] 250mg Take 1 Un rosalia sodium 250 6-15 capsule by ity of mg capsule 00:00: mouth [place] 00 daily. Medical Branch famotidine 2018-0 Yes [id number] 20mg Take 1 U nivers 20 mg 6-15 tablet by ity of tablet 00:00: mouth 2 [place] 00 (two) Medical times Branch daily. ondansetron 2019-0 Yes [id number] 4mg Take 1 Univers 4 mg 6-15 tablet by ity of disintegrat 00:00: mouth [place] ing tablet 00 every 4 Medica l (four) Branch hours as needed for Nausea and Vomiting (N/V). dicyclomine 2019-0 Yes [id number] 10mg Take 1 Univers (BENTYL) 10 6-15 capsule by it y of mg capsule 00:00: mouth [place] (four) Medical times Branch daily. docusate 2019-0 Yes [id number] 250mg Take 1 Un rosalia sodium 250 6-15 capsule by ity of mg capsule 00:00: mouth [place] 00 daily. Medical Branch famotidine Yes [id number] 20mg Take 1 U nivers 20 mg 6-15 tablet by ity of tablet 00:00: mouth 2 (two) Medical times Branch daily. ondansetron Yes [id number] 4mg Take 1 Univers 4 mg 6-15 tablet by ity of disintegrat 00:00: mouth [place] ing tablet 00 every 4 Medica l (four) Branch hours as needed for Nausea and Vomiting (N/V). dicyclomine Yes [id number] 10mg Take 1 Univers (BENTYL) 10 6-15 capsule by it y of mg capsule 00:00: mouth [place] 00 (four) Medical times Branch daily. docusate Yes [id number] 250mg Take 1 Un rosalia sodium 250 6-15 capsule by ity of mg capsule 00:00: mouth [place] 00 daily. Medical Branch famotidine Yes [id number] 20mg Take 1 U nivers 20 mg 6-15 tablet by ity of tablet 00:00: mouth 2 (two) Medical times Branch daily. pantoprazol Yes TK 1 T PO U nivers e 40 mg EC 1-25 Q MORNING ity of tablet 00:00: [facility] Branch pantoprazol 2017- Yes TK 1 T PO U nivers e 40 mg EC 1-25 Q MORNING ity of tablet 00:00: [facility] Branch pantoprazol 2017-0 Yes TK 1 T PO U nivers e 40 mg EC 1-25 Q MORNING ity of tablet 00:00: [address] Branch pantoprazol 2017- Yes TK 1 T PO U nivers e 40 mg EC 1-25 Q MORNING ity of tablet 00:00: [facility] Branch FOCALIN XR 2016- Yes TK ONE C Uni vers 20 mg 24 hr 1-05 PO QAM ity of capsule 00:00: [place] Medical Branch FOCALIN XR Yes TK ONE C Uni vers 20 mg 24 hr 1-05 PO QAM ity of capsule 00:00: [place] [facility] Branch FOCALIN XR 2016- Yes TK ONE C Uni vers 20 mg 24 hr 1-05 PO QAM ity of capsule 00:00: [place] 00 Medical Branch FOCALIN XR Yes TK ONE C Uni vers 20 mg 24 hr 1-05 PO QAM ity of capsule 00:00: [place] 00 Medical Branch acetaminoph Yes 1{tbl} Take [...] Yes TAKE 1/2 T Univers enidate 10 14 PO QAM AND ity of mg tablet 00:00: [place] 00 1 WEEK. Medical THEN 1 T Branch PO QAM AND Q NOON Vital Signs Vital Name Observation Time Observation Value Comments Source WEIGHT 2019-10-15 00:00:00 196.5 kg HEIGHT 2019-10-15 00:00:00 193 cm WEIGHT 2019-10-15 00:00:00 196.5 kg HEIGHT 2019-10-15 00:00:00 193 cm Systolic blood 2019-10-10 10:59:00 167 mm[Hg] Univer sity of pressure [facility] Diastolic blood 2019-10-10 10:59:00 93 mm[Hg] Unive rsity of pressure [facility] Heart rate 2019-10-10 10:59:00 65 /min Universi ty of [facility] Respiratory rate 2019-10-10 10:59:00 16 /min Univ ersity of [facility] Oxygen saturation in 2019-10-10 10:59:00 98 /min University of Arterial blood by [facility] Pulse oximetry Branch Body temperature 2019-10-10 07:55:00 37.22 [place] Univ ersity of [facility] Body height 2019-10-10 07:55:00 193 cm Universi ty [facility] Body weight 2019-10-10 07:55:00 145.151 kg Universi ty [facility] BMI 2019-10-10 07:55:00 38.95 kg/m2 Universi ty [facility] Systolic blood 2019-10-10 10:59:00 167 mm[Hg] Univer sity of pressure [facility] Diastolic blood 2019-10-10 10:59:00 93 mm[Hg] Unive rsity of pressure [facility] Heart rate 2019-10-10 10:59:00 65 /min Universi ty of [facility] Respiratory rate 2019-10-10 10:59:00 16 /min Univ ersity of [facility] Oxygen saturation in 2019-10-10 10:59:00 98 /min University of Arterial blood by [facility] Pulse oximetry Branch Body temperature 2019-10-10 07:55:00 37.22 [place] Univ ersity of [facility] Body height 2019-10-10 07:55:00 193 cm [facility] Body weight 2019-10-10 07:55:00 145.151 kg [facility] BMI 2019-10-10 07:55:00 38.95 kg/m2 [facility] Procedures Procedure Date / Time Performing Clinician Source Performed AUTHORIZATION FOR 2019-10-11 05:01:00 Doctor Unassigned, No [facility] ersity [facility] RELEASE OF [facility] US GALL BLADDER 2019-10-10 10:38:35 Gaurang Manjarrez [facility] CT ABDOMEN PELVIS W 2019-10-10 08:57:12 Gaurang Manjarrez [facility] CONTRAST [facility] Branch LIPASE 2019-10-10 08:02:00 Gaurang Manjarrez [facility] COMP. METABOLIC PANEL 2019-10-10 08:02:00 Gaurang Manjarrez [facility] ([id number]) [facility] CBC WITH DIFFERENTIAL 2019-10-10 08:02:00 Gaurang Manjarrez [facility] URINALYSIS 2019-10-10 08:02:00 Gaurang Manjarrez [facility] NOTICE OF PRIVACY 2019-10-10 07:46:47 Doctor Unassigned, No [facility] PRACTICES [facility] CONSENT/REFUSAL FOR 2019-10-10 07:45:08 Doctor Unassigned, No [facility] AUTHORIZATION FOR 2018-09-11 05:01:00 Doctor Unassigned, No [facility] RELEASE OF [facility] Plan of Care Planned Activity Planned Date [...] Luke s Test 00:00:00 (procedure) [code = Medical Center [id number]] Future Scheduled 2019-08-10 DTAP/TDAP/TD VACCINES [facility] Test 00:00:00 (1 - Tdap) [code = Medical C enter DTAP/TDAP/TD VACCINES (1 - Tdap)] Future Scheduled 2018 HEPATITIS C [facility]CRE[facility]ING [facility] Test 00:00:00 [code = HEPATITIS C Medical Center SCREENING] Future Scheduled 2001-02-09 COVID-19 VACCINE (#1) [facility] Test 00:00:00 [code = COVID-[address] VACCINE (#1)] Encounters Start End Encounter Admission Attending Care Care Encounter Source Date/Time Date/Time Type Type Clinicians Facility Department ID 2021-01-23 Emergency [facility] [id number] Univers 06:47:30 ity [facility] 2020-12-31 Inpatient OTHMAN, [facility] Surgery [id number] SLE 00:26:12 MOHAMED 2019-10-15 Inpatient UR NALAM, [facility] Gastro [id number] SLE 19:23:00 RAD 2019-10-11 2019-10-11 Orders Doctor SAGAR [id number] Univers 00:00:00 00:00:00 Only Unassigned, CIARA 350.1.13.10 [facility] 4.2.7.2.686 [place] [phone] [facility] 009 Branch 2019-10-10 2019-10-10 Emergency [facility] [id number] 02:47:36 06:06:00 Gaurang Lassiter [id number] [place] 4.2.7.2.686 [place] [phone] [facility] 2019-10-10 2019-10-10 Emergency [facility] [id number] Univers 02:47:36 06:06:00 Gaurang Lassiter [id number] i ty of [place] 4.2.7.2.686 [facility] [phone] [facility] 084 Branch 2019-10-10 2019-10-10 Orders Doctor KEITH [id number] 00:00:00 00:00:00 Only Unassigned, CIARA [id number] [facility] 4.2.7.2.686 [id number] 009 2019-10-10 2019-10-10 Orders Doctor SAGAR [id number] Univers 00:00:00 00:00:00 Only Unassigned, CIARA [id number] ity of [facility] 4.2.7.2.686 [place] as [phone] [place] [address] Branch 2018-09-11 2018-09-11 Orders Doctor SAGAR [id number] 00:00:00 00:00:00 Only Unassigned, CIARA [id number] [facility] 4.2.7.2.686 [id number] 009 2018-09-11 2018-09-11 Orders Doctor SAGAR [id number] Univers 00:00:00 00:00:00 Only Unassigned, CIARA 350.1.13.10 ity of [facility] [facility] 4.2.7.2.686 [place] as [id number] [address] Results Test Description Test Time Test Comments [...] code = 994) seen FUNGUS CULTURE + [id number] 08:30:00 Test Item Value Reference Range Interpretation Comments CULTURE (BEAKER) (test No fungus isolated in code = 1095) 28 days FUNGUS SMEAR (BEAKER) No fungi seen (test code = 1406) FUNGUS CULTURE + [id number] 08:30:00 Test Item Value Reference Range Interpretation Comments CULTURE (BEAKER) (test No fungus isolated in code = 1095) 28 days FUNGUS SMEAR (BEAKER) No fungi seen (test code = 1406) SARS-COV2/RT-PCR ([facility])2019-10-30 09:07:00 Test Item Value Reference Range Interpretation Comments SARS-COV2/RT-PCR (test Negative Not Detected, Negative, code = 4775370) See external report for linked test SARS-COV-2 PERFORMING LAB [facility] ANDREW (test code = 0094027) Negative result for this test determines that [...] of the Act.Fact Sheet for Healthcare Prov iders:https://www.[employer]/sites/default/files/product/documents/Fact_Sheet_HC _Wawuzknso_Mswj_FRUA-WvR-8.pdfFact Sheet for Healthcare Patients:https://www.[employer]í/sites/default/files/product/docume nts/Qvwi_Lwhru_Ipsrusiu_Ssis_WDMT-OwQ-0.pdfPerforming Laboratory:[facility], [place] [address]ZUIQOJQ FUNCTION PANEL 2019-10-30 06:48:00 Test Item Value [...] Specimen slightly (test code = 347) hemolyzed Flame Degreaser EUGENE PAL WCBC (HEMOGRAM ONLY)2019-10-30 06:39:00 Test Item Value [...] (BEAKER) (test code = 413) BASIC METABOLIC [id number] 08:29:00 Test Item Value Reference Range Interpretation [...] S NOT APPLICABLE FOR DIALYSIS PATIEN TS. Flame Degreaser ID - PIAYA LHEPATIC FUNCTION [id number] 08:20:00 Test Item Value Reference Range Interpretation [...] code = 124 U/L 6-55 H 347) Flame Degreaser EUGENE ORTIZ (HEMOGRAM ONLY)2019-10-29 07:33:00 Test Item Value Reference [...] code = 413) URINALYSIS W/ REFLEX URINE [id number] 20:20:00 Test Item Value Reference Range Interpretation [...] = 516) SOURCE(BEAKER) (test code = 2795) Flame Degreaser ID - [auto]Flame Degreaser ID - hankBLOOD [id number] 16:00:00 Test Item Value Reference Range Interpretation Comments CULTURE (BEAKER) (test No growth in 5 days code = 1095) RAD, CHEST, 1 VIEW, NON [id number] 14:35:00Reason for exam:->FeverShould this be performed at [...] and was likely atelectasis. Signed: Austyn Rascon [facility] Verified Date/Time: 10/28/2019 14:35:57 Reading Location: [facility] B1 C013Y CT Body Reading Room BLOOD [id number] 13:00:00 Test Item Value Reference Range Interpretation Comments CULTURE (BEAKER) (test No growth in 5 days code = 1095) BASIC METABOLIC [id number] 07:07:00 Test Item Value Reference Range Interpretation [...] S NOT APPLICABLE FOR DIALYSIS PATIEN TS. Flame Degreaser ID - PIAYA LHEPATIC FUNCTION [id number] 07:03:00 Test Item Value Reference Range Interpretation [...] code = 145 U/L 6-55 H 347) Flame Degreaser ID - PIAYA LCBC (HEMOGRAM ONLY)2019-10-28 06:29:00 [...] (BEAKER) (test code = 413) HEPATIC FUNCTION [id number] 07:32:00 Test Item Value Reference Range Interpretation [...] code = 148 U/L 6-55 H 347) Flame Degreaser ID - PIAYA LBASIC METABOLIC [id number] 07:32:00 Test Item Value Reference Range Interpretation [...] S NOT APPLICABLE FOR DIALYSIS PATIEN TS. Flame Degreaser ID - PIAYA LCREATINE KINASE (CK)2019-10-27 07:32:00 Test Item Value Reference Range Interpretation Comments CREATINE KINASE TOTAL (BEAKER) (test 161 U/L 29-200 code = 380) Flame Degreaser ID - PIOTONIEL LCBC (HEMOGRAM ONLY)2019-10-27 05:57:00 Test Item Value [...] 0-0 (BEAKER) (test code = 413) POCT-GLUCOSE [id number] 12:21:00 Test Item Value Reference Range Interpretation Comments POC-GLUCOSE METER 127 mg/dL 70-110 H : TESTED A T [facility] 6720 (BEAKER) (test code = [place]TE [place], 1538) [address]: Flame Degreaser/Techni telma ID = [id number] for IRAIS GLEZ AMYLASE, BODY [id number] 11:43:00 Test Item Value Reference Range Interpretation Comments AMYLASE FLUID (BEAKER) SPECI MEN UNSUITABLE; NOT (test code = 350) ABLE TO RU N. [id number] Absence of reference range indicates that normals have not been defined.Assay performance has not been validated for this type of specimen.AMYLASE, BODY FLUID 2019-10-26 09:49:00 Test Item Value Reference Range Interpretation Comments AMYLASE FLUID (BEAKER) SPECI MEN UNSUITABLE FOR (test code = 350) TESTING. B #[id number] Absence of reference range indicates that normals [...] (BEAKER) (test code = 413) BASIC METABOLIC [id number] 05:57:00 Test Item Value Reference Range Interpretation [...] S NOT APPLICABLE FOR DIALYSIS PATIEN TS. Flame Degreaser ID - EDASIHEPATIC FUNCTION [id number] 05:56:00 Test Item Value Reference Range Interpretation [...] code = 141 U/L 6-55 H 347) Flame Degreaser ID - EDASICREATINE KINASE (CK)2019-10-26 05:56:00 Test Item Value Reference Range Interpretation Comments CREATINE KINASE TOTAL (BEAKER) (test 136 U/L 29-200 code = 380) Flame Degreaser ID - EDASIPOCT-GLUCOSE [id number] 16:17:00 Test Item Value Reference Range Interpretation Comments POC-GLUCOSE METER 98 mg/dL 70-110 : TESTED A T [facility] 6720 (BEAKER) (test code = YVETTE Paul [place], 1538) [address]: Flame Degreaser/Techni telma ID = [id number] for HEIDY CHAMORRO BASIC METABOLIC [id number] 07:22:00 Test Item Value Reference Range Interpretation [...] S NOT APPLICABLE FOR DIALYSIS PATIEN TS. Flame Degreaser ID - NTPHEPATIC FUNCTION [id number] 07:12:00 Test Item Value Reference Range Interpretation [...] code = 106 U/L 6-55 H 347) Flame Degreaser ID - NTPCBC (HEMOGRAM ONLY)2019-10-25 06:43:00 Test [...] 0-0 (BEAKER) (test code = 413) ANAEROBIC [id number] 19:33:00 Test Item Value Reference Range Interpretation Comments CULTURE (BEAKER) (test No anaerobes isolated code = 1095) ANAEROBIC [id number] 19:32:00 Test Item Value Reference Range Interpretation Comments CULTURE (BEAKER) (test No anaerobes isolated code = 1095) URINALYSIS W/ REFLEX URINE [id number] 18:06:00 Test Item Value Reference Range Interpretation [...] = 516) SOURCE(BEAKER) (test code = 2795) Flame Degreaser ID - [auto]Flame Degreaser ID - techCT, [id number] 17:30:00PLEASE ADMINISTER IV AND PO CONTRASTFINAL REPORT [...] MDReport Verified Date/Time: 10/24/2019 17:30:15 Reading Location: [address] Transitional Reading Room CT, CHEST, WITH [...] MDReport Verified Date/Time: 10/24/2019 17:30:15 Reading Location: [address] Reading Room POCT-GLUCOSE [id number] 11:49:00 Test Item Value Reference Range Interpretation Comments POC-GLUCOSE METER 153 mg/dL 70-110 H : TESTED A T [facility] 6720 (BEAKER) (test code = [facility] [place] [facility], 1538) [address]: Flame Degreaser/Techni telma ID = [id number] for HEIDY WATSON BASIC METABOLIC [id number] 06:36:00 Test Item Value Reference Range Interpretation Comments SODIUM (BEAKER) 134 meq/L 136-145 L (test code = 381) POTASSIUM (BEAKER) 3.2 meq/L 3.5-5.1 L (test code = 379) CHLORIDE (BEAKER) 98 meq/L 98-107 (test code = 382) CO2 (BEAKER) (test 28 meq/L -29 code = 355) BLOOD UREA NITROGEN 8 [...] S NOT APPLICABLE FOR DIALYSIS PATIEN TS. Flame Degreaser ID - EDASIHEPATIC FUNCTION [id number] 05:57:00 Test Item Value Reference Range Interpretation [...] code = 95 U/L 6-55 H 347) Flame Degreaser ID - EDASICBC (HEMOGRAM ONLY)2019-10-24 05:29:00 Test [...] 0-0 (BEAKER) (test code = 413) TISSUE [id number] 13:16:00Surgical Pathology Report Case: [id number] Authorizing Provider: Amalia Reyez MD Collected: 10/19/2019 12:15 PM Ordering Location: [facility] PERIOPERATIVE Received: 10/19/2019 02:33 PM SERVICES Pathologist: Yessi Harrington MD Specimen: Gallbladder GALL BLADDER, CHOLECYSTECTOMY: - ACUTE ON CHRONIC CHOLECYSTITIS - CHOLELITHIASIS - CYSTIC DUCT MARGIN IS UNREMARKABLE - NEGATIVE FOR DYSPLASIA OR MALIGNANCY Signing Pathologist Direct Phone Line: [phone] signed by Yessi Harrington MD on 10/23/2019 at 1:16 [id number], common bile duct Gallbladder Received informalin is labeled with name, accession number, "gallbladder" [...] cystic duct neck margin. The wall ranges in thickness from [...] Also the calculi are brown and bosselated. Hazmat Cdl A Driver sections are submitted in cassette A1 (duct, neck to body); A2, (body to fundus. .JG/plPerformedPOCT-GLUCOSE [id number] 11:38:00 Test Item Value Reference Range Interpretation Comments POC-GLUCOSE METER 113 mg/dL 70-110 H : TESTED A T [facility] 6720 (BEAKER) (test code = YVETTE Paul [facility], 1538) [address]: Flame Degreaser/Techni telma ID = [id number] for Erasmo Aragon CREATINE KINASE (CK)2019-10-23 10:22:00 Test Item Value Reference Range Interpretation Comments CREATINE KINASE TOTAL (BEAKER) (test 253 U/L 29-200 H code = 380) Flame Degreaser ID - ALEKSANDRA, CHEST, 1 VIEW, NON [id number] 08:04:00Reason for exam:->resp insuffciency, pulm edemaShould this be performed at the bedside?->YesFINAL REPORT CLINICAL HISTORY: resp insuffciency, pulm edema TECHNIQUE: 1 view of the chest. COMPARISON: 10/22/2019 IMPRESSION: Low lung volumes are again seen with bandlike opacities in both lower lung zones. Subpulmonic pleural effusions cannot be excluded. The cardiomediastinal silhouette is magnified by technique. Signed: [facility] Verified Date/Time: 10/23/2019 08:04:47 Reading Location: [facility] Radiology Reading Room POCT-GLUCOSE [id number] 06:35:00 Test Item Value Reference Range Interpretation Comments POC-GLUCOSE METER 147 mg/dL 70-110 H : TESTED A T [facility] 6720 (BEAKER) (test code = YVETTE Paul [facility], 1538) [address]: Flame Degreaser/Techni telma ID = [id number] for PINKY ARAGON BASIC METABOLIC [id number] 06:32:00 Test Item Value Reference Range Interpretation [...] S NOT APPLICABLE FOR DIALYSIS PATIEN TS. Flame Degreaser ID - [id number] 06:29:00 Test Item Value Reference Range Interpretation Comments PHOSPHORUS (BEAKER) (test code = 3.5 mg/dL 2.3-4.7 604) Flame Degreaser ID - [id number] 06:29:00 Test Item Value Reference Range Interpretation Comments MAGNESIUM (BEAKER) (test code = 2.1 mg/dL 1.6-2.6 627) Flame Degreaser ID - EDASIHEPATIC FUNCTION [id number] 06:29:00 Test Item Value Reference Range Interpretation [...] code = 87 U/L 6-55 H 347) Flame Degreaser ID - EDASICBC (HEMOGRAM ONLY)2019-10-23 05:55:00 Test [...] 0-0 (BEAKER) (test code = 413) POCT-GLUCOSE [id number] 00:52:00 Test Item Value Reference Range Interpretation Comments POC-GLUCOSE METER 160 mg/dL 70-110 H : TESTED A T [facility] 6720 (BEAKER) (test code = [facility], 1538) 29185: Flame Degreaser/Techni telma ID = [id number] for [place] LLIAMS, PINKY POCT-GLUCOSE [id number] 18:21:00 Test Item Value Reference Range Interpretation Comments POC-GLUCOSE METER 140 mg/dL 70-110 H : TESTED A T [facility] 6720 (BEAKER) (test code = [facility], 1538) 59065: Flame Degreaser/Techni telma ID = [id number] for Wi lliams, Areiona POCT-GLUCOSE [id number] 16:06:00 Test Item Value Reference Range Interpretation Comments POC-GLUCOSE METER 107 mg/dL 70-110 : TESTED A T [facility] 6720 (BEAKER) (test code = [place], 1538) 485[address]: Flame Degreaser/Techni telma ID = [id number] for Erasmo Aragon BASIC METABOLIC [id number] 16:02:00 Test Item Value Reference Range Interpretation [...] S NOT APPLICABLE FOR DIALYSIS PATIEN TS. Flame Degreaser ID - [id number] 15:59:00 Test Item Value Reference Range Interpretation Comments PHOSPHORUS (BEAKER) (test code = 3.5 mg/dL 2.3-4.7 604) Flame Degreaser ID - [id number] 15:59:00 Test Item Value Reference Range Interpretation Comments MAGNESIUM (BEAKER) (test code = 2.2 mg/dL 1.6-2.6 627) Flame Degreaser ID - BSCBC (HEMOGRAM ONLY)2019-10-22 15:46:00 Test [...] = 413) SURGICALLY OBTAINED CULTURE + GRAM [id number] 11:26:00 Test Item Value Reference Range Interpretation Comments CULTURE (BEAKER) (test No growth code = 1095) GRAM STAIN RESULT No WBCs (BEAKER) (test code = 1123) GRAM STAIN RESULT 1+ gram negative rods (BEAKER) (test code = 45037) SURGICALLY OBTAINED CULTURE + GRAM [id number] 11:25:00 Test Item Value Reference Range Interpretation Comments CULTURE (BEAKER) (test code No growth = 1095) GRAM STAIN RESULT (BEAKER) <1+ WBCs (test code = 1123) GRAM STAIN RESULT (BEAKER) No organisms seen (test code = 44967) RAD, CHEST, 1 VIEW, NON [id number] 07:41:00Reason for exam:->resp insuffciency, pulm edemaShould this be performed at the bedside?->YesFINAL REPORT Chest AP portable Comparison exam: 10/21/2019 History provided: Respiratory insufficiency Heart size magnified by projection and poor inspiration. Lungs grossly clear and vascularity normal. Signed: Ryder Andrew MDReport Verified Date/Time: 10/22/2019 07:41:48 ReadingLocation: [facility] Diagnostic Imaging Reading Room - [facility] 1.310.12 POCT-GLUCOSE [id number] 05:39:00 Test Item Value Reference Range Interpretation Comments POC-GLUCOSE METER 103 mg/dL 70-110 : TESTED A T [facility] 6720 (BEAKER) (test code = [place], 1538) 41[address]: Flame Degreaser/Techni telma ID = [id number] for VALENTIN GARCIA BASIC METABOLIC [id number] 05:15:00 Test Item Value Reference Range Interpretation [...] S NOT APPLICABLE FOR DIALYSIS PATIEN TS. Flame Degreaser ID - DEMARCO [id number] 05:11:00 Test Item Value Reference Range Interpretation Comments PHOSPHORUS (BEAKER) (test code = 3.7 mg/dL 2.3-4.7 604) Flame Degreaser ID - DEMARCO [id number] 05:11:00 Test Item Value Reference Range Interpretation Comments MAGNESIUM (BEAKER) (test code = 2.2 mg/dL 1.6-2.6 627) Flame Degreaser ID - DEMARCO WHEPATIC FUNCTION [id number] 05:11:00 Test Item Value Reference Range Interpretation [...] code = 70 U/L 6-55 H 347) Flame Degreaser ID - DEMARCO WCBC (HEMOGRAM ONLY)2019-10-22 04:27:00 Test Item Value [...] 0-0 (BEAKER) (test code = 413) POCT-GLUCOSE [id number] 00:46:00 Test Item Value Reference Range Interpretation Comments POC-GLUCOSE METER 131 mg/dL 70-110 H : TESTED A T [facility] 6720 (BEAKER) (test code = [facility] [place], 1538) 22527: Flame Degreaser/Techni telma ID = [id number] for VALENTIN GARCIA [id number] 14:35:00 Test Item Value Reference Range Interpretation Comments MAGNESIUM (BEAKER) (test code = 2.4 mg/dL 1.6-2.6 627) Flame Degreaser ID Carter NORIEGA FBASIC METABOLIC [id number] 14:24:00 Test Item Value Reference Range Interpretation [...] S NOT APPLICABLE FOR DIALYSIS PATIEN TS. Flame Degreaser ID Carter NORIEGA [id number] 14:22:00 Test Item Value Reference Range Interpretation Comments PHOSPHORUS (BEAKER) (test code = 2.8 mg/dL 2.3-4.7 604) Flame Degreaser ID Carter NORIEGA FPOCT-GLUCOSE [id number] 13:30:00 Test Item Value Reference Range Interpretation Comments POC-GLUCOSE METER 124 mg/dL 70-110 H : TESTED A T [facility] 6720 (BEAKER) (test code = [facility] [place], 1538) 994[address]: Flame Degreaser/Techni telma ID = [id number] for Rizwana Long POCT-GLUCOSE [id number] 06:41:00 Test Item Value Reference Range Interpretation Comments POC-GLUCOSE METER 117 mg/dL 70-110 H : TESTED A T [facility] 6720 (BEAKER) (test code = [place], 1538) 518[address]: Flame Degreaser/Techni telma ID = [id number] for CHIKIS KINNEY [id number] 06:40:00 Test Item Value Reference Range Interpretation Comments MAGNESIUM (BEAKER) 3.1 mg/dL 1.6-2.6 H Specimen moderately (test code = 627) hemolyzed Flame Degreaser ID - [id number] 06:40:00 Test Item Value Reference Range Interpretation Comments PHOSPHORUS (BEAKER) 3.5 mg/dL 2.3-4.7 Specimen moderately (test code = 604) hemolyzed Flame Degreaser ID - EDASIHEPATIC FUNCTION [id number] 06:40:00 Test Item Value Reference Range Interpretation [...] Specimen moderately (test code = 347) hemolyzed Flame Degreaser ID - EDASIBASIC METABOLIC [id number] 06:40:00 Test Item Value Reference Range Interpretation [...] S NOT APPLICABLE FOR DIALYSIS PATIEN TS. Flame Degreaser ID - EDASILACTIC ACID, [id number] 06:16:00 Test Item Value Reference Range Interpretation Comments LACTATE BLOOD 1.1 mmol/L 0.5-2.2 Specimen sligh tly ARTERIAL (2) (BEAKER) hemoly zed (test code = 2874) Flame Degreaser ID - EDASICBC (HEMOGRAM ONLY)2019-10-21 05:53:00 Test [...] code = 413) RAD, ABDOMEN/KUB, 1 VIEW [id number] 05:21:00Reason for exam:->NG tube positionShould this be performed at the bedside?->YesFINAL REPORT TECHNIQUE: Supine views of the abdomen. INDICATION: NG tube position. COMPARISON: None. FINDINGS/IMPRESSION: The nasogastric tube descends below the gastroesophageal junction terminating in the region of the gastric fundus. Bowel gas pattern is nonspecific but nonobstructive. Surgical drain overlies the right upper abdomen. Signed: Esperanza Wynn Verified Date/Time: 10/21/2019 05:21:40 CALCIUM, [id number] 05:18:00 Test Item Value Reference Range Interpretation Comments CALCIUM IONIZED (BEAKER) (test 1.01 mmol/L 1.12-1.27 L code = 698) PH, BLOOD (BEAKER) (test code = 7.43 1810) BLOOD [id number] 03:00:00 Test Item Value Reference Range Interpretation Comments CULTURE (BEAKER) (test No growth in 5 days code = 1095) BLOOD [id number] 03:00:00 Test Item Value Reference Range Interpretation Comments CULTURE (BEAKER) (test No growth in 5 days code = 1095) RAD, CHEST, 1 VIEW, NON [id number] 01:12:00Reason for exam:->resp insuffciency, pulm edemaShould this be performed at the bedside?->YesFINAL REPORT RAD, CHEST, 1 VIEW, NON DEPT INDICATION: resp insuffciency, pulm edema COMPARISON: Prior day's exam FINDINGS: Portable frontal view of the chest. IMPRESSION: Support Lines: Interval extubation. Otherwise unchanged support apparatus. Lungs and pleura: Unchanged airspace and pleural opacities. No pneumothorax.Heart and mediastinum: Stable contours. Additional findings:None. Signed: Rona Irwinort Verified Date/Time: 10/21/2019 01:12:01 POCT-GLUCOSE [id number] 00:07:00 Test Item Value Reference Range Interpretation Comments POC-GLUCOSE METER 121 mg/dL 70-110 H : TESTED A T [facility] 6720 (BEAKER) (test code = [facility], 1538) 50918: Flame Degreaser/Techni telma ID = [id number] for CHIKIS KINNEY POCT-GLUCOSE [id number] 17:19:00 Test Item Value Reference Range Interpretation Comments POC-GLUCOSE METER 121 mg/dL 70-110 H : TESTED A T [facility] 6720 (BEAKER) (test code = [facility], 1538) 64886: Flame Degreaser/Techni telma ID = [id number] for Rizwana Long [id number] 16:54:00 Test Item Value Reference Range Interpretation Comments PHOSPHORUS (BEAKER) (test code = 1.5 mg/dL 2.3-4.7 LL 604) Flame Degreaser ID - [facility] Serum Potassium level 2 hours after oral potassium replacement completed or 30 min after intravenous potassium replacement. [id number] 16:49:00 Test Item Value Reference Range Interpretation Comments POTASSIUM (BEAKER) (test code = 3.1 meq/L 3.5-5.1 L 379) Flame Degreaser ID - [facility] Serum Potassium level 2 hours after oral potassium replacement completed or 30 min after intravenous potassium replacement. [id number] 16:49:00 Test Item Value Reference Range Interpretation Comments MAGNESIUM (BEAKER) (test code = 1.3 mg/dL 1.6-2.6 L 627) Flame Degreaser ID - [facility] Serum Potassium level 2 hours after oral potassium replacement completed or 30 min after intravenous potassium replacement.AMYLASE PERITONEAL [id number] 13:16:00 Test Item Value Reference Range Interpretation Comments AMYLASE, PERITONEAL FLUID (test code 1843 U/L See Comment #2 = [id number]) Amylase activity in peritoneal fluids of non-pancreatic origin is often less than or equal to the amylase activity in blood, whereas elevated amylase activity has been reported in fluid of pancreatic origin (five-folds or higher compared to contemporaneously collected blood specimen).This test has been modified from the geographic analyst's instructions and its performance characteristics were determined by [facility]. The laboratory is regulated under CLIA as qualified to perform high-complexity testing. This test has not been cleared or approved by the U.S. Food and Drug Administration. The reference intervals and other method performance specifications are unavailable for amylase in peritoneal fluid. Comparison of this result with the blood amylase is recommended.Flame Degreaser ID - LEANN F AMYLASE PERITONEAL [id number] 13:15:00 Test Item Value Reference Range Interpretation Comments AMYLASE, PERITONEAL FLUID (test code = 74 U/L See Comment #1 [id number]) Amylase activity in peritoneal fluids of non-pancreatic origin is often less than or equal to the amylase activity in blood, whereas elevated amylase activity has been reported in fluid of pancreatic origin (five-folds or higher compared to contemporaneously collected blood specimen).This test has been modified from the geographic analyst's instructions and its performance characteristics were determined by [facility]. The laboratory is regulated under CLIA as qualified to perform high-complexity testing. This test has not been cleared or approved by the U.S. Food and Drug Administration. The reference intervals and other method performance specifications are unavailable for amylase in peritoneal fluid. Comparison of this result with the blood amylase is recommended.Flame Degreaser ID - LEANN FPOCT- GLUCOSE [id number] 12:44:00 Test Item Value Reference Range Interpretation Comments POC-GLUCOSE METER 115 mg/dL 70-110 H : TESTED A T [facility] 6720 (BEAKER) (test code = [facility], 1538) 43451: Flame Degreaser/Techni telma ID = [id number] for Rizwana Long HEMOGLOBIN [id number] 09:54:00 Test Item Value Reference Range Interpretation Comments HEMOGLOBIN A1C (BEAKER) (test code = 5.5 % 4.3-6.1 368) SPIN/CONCENTRATION [id number] 07:21:00 Test Item Value Reference Range Interpretation Comments CONCENTRATION CHARGED (BEAKER) (test Done code = 2657) SPIN/CONCENTRATION [id number] 07:20:00 Test Item Value Reference Range Interpretation Comments CONCENTRATION CHARGED (BEAKER) (test Done code = 2657) POCT-GLUCOSE [id number] 06:27:00 Test Item Value Reference Range Interpretation Comments POC-GLUCOSE METER 151 mg/dL 70-110 H : TESTED A T [facility] 6720 (BEAKER) (test code = [place], 1538) 90952: Flame Degreaser/Techni telma ID = [id number] for CHIKIS KINNEY BASIC METABOLIC [id number] 06:06:00 Test Item Value Reference Range Interpretation [...] S NOT APPLICABLE FOR DIALYSIS PATIEN TS. Flame Degreaser ID - DBOperator ID - [id number] 05:19:00 Test Item Value Reference Range Interpretation Comments PHOSPHORUS (BEAKER) (test code = 2.5 mg/dL 2.3-4.7 604) Flame Degreaser ID - [id number] 05:19:00 Test Item Value Reference Range Interpretation Comments MAGNESIUM (BEAKER) (test code = 2.1 mg/dL 1.6-2.6 627) Flame Degreaser ID - DBHEPATIC FUNCTION [id number] 05:19:00 Test Item Value Reference Range Interpretation [...] (test code = 41 U/L 6-55 347) Flame Degreaser ID - DBCALCIUM, [id number] 05:06:00 Test Item Value Reference Range Interpretation Comments CALCIUM IONIZED (BEAKER) (test 0.96 mmol/L 1.12-1.27 L code = 698) PH, BLOOD (BEAKER) (test code = 7.43 1810) BLOOD GAS, [id number] 04:55:00 Test Item Value Reference Range Interpretation [...] = 1819) 40.0 % While intubatedLACTIC ACID, [id number] 04:53:00 Test Item Value Reference Range Interpretation Comments LACTATE BLOOD ARTERIAL (2) 0.8 mmol/L 0.5-2.2 (BEAKER) (test code = 2874) Flame Degreaser ID - DBCBC (HEMOGRAM ONLY)2019-10-20 04:53:00 Test [...] (BEAKER) (test code = 413) BASIC METABOLIC [id number] 01:46:00 Test Item Value Reference Range Interpretation [...] S NOT APPLICABLE FOR DIALYSIS PATIEN TS. Flame Degreaser ID - DBRAD, CHEST, 1 VIEW, NON [id number] 01:46:00Reason for exam:- >intubated, resp insuffciencyShould this be performed at the bedside?->Yes FINAL REPORT RAD, CHEST, 1 VIEW, NON DEPT INDICATION: intubated, resp insuffciency COMPARISON: Prior day's exam FINDINGS: Portable frontal view of the chest. IMPRESSION: Support Lines: Stable. Lungs and pleura: Unchanged airspace and pleural opacities. No pneumothorax.Heart and mediastinum: Stable contours. Additional findings: None. Signed: Rona Irwin MDReport Verified Date/Time: 10/20/2019 01:46:33 LACTIC ACID, ARTERIAL 2019-10-20 01:29:00 Test Item Value Reference Range Interpretation Comments LACTATE BLOOD 1.3 mmol/L 0.5-2.2 Specimen sligh tly ARTERIAL (2) (BEAKER) hemoly zed (test code = 2874) Flame Degreaser ID - DBBLOOD GAS, [id number] 00:59:00 Test Item Value Reference Range Interpretation [...] code = 1819) 40.0 % HEMOGLOBIN AND [id number] 00:58:00 Test Item Value Reference Range Interpretation Comments HEMOGLOBIN (BEAKER) (test code = 14.1 GM/DL 13.7-17.5 410) HEMATOCRIT (BEAKER) (test code = 42.8 % 40.1-51.0 411) Flame Degreaser ID - 6000(CELLAVISION MANUAL DIFF)2019-10-19 19:36:00 Test [...] CONCENTRATION Adequate (CELLAVISION)(BEAKER) (test code = 3438) Flame Degreaser ID - StepmarianaieUser comments: Slide comments:TSH/FREE T4 IF INDICATED 2019-10-19 19:26:00 Test Item Value Reference Range Interpretation Comments THYROID STIMULATING HORMONE 1.733 uIU/mL 0.350-4.940 (BEAKER) (test code = 772) Flame Degreaser ID - [id number] 19:04:00 Test Item Value Reference Range Interpretation Comments PHOSPHORUS (BEAKER) (test code = 2.3 mg/dL 2.3-4.7 604) Flame Degreaser ID - [id number] 19:04:00 Test Item Value Reference Range Interpretation Comments MAGNESIUM (BEAKER) (test code = 1.7 mg/dL 1.6-2.6 627) Flame Degreaser ID - DBHEPATIC FUNCTION [id number] 19:04:00 Test Item Value Reference Range Interpretation [...] (test code = 44 U/L 6-55 347) Flame Degreaser ID - DBBASIC METABOLIC [id number] 19:04:00 Test Item Value Reference Range Interpretation [...] S NOT APPLICABLE FOR DIALYSIS PATIEN TS. Flame Degreaser ID - DBPROTHROMBIN [id number] 18:54:00 Test Item Value Reference Range Interpretation [...] is 2.5-3.5 for patients wiht mechanical heart valves.[id number] 18:54:00 Test Item Value Reference Range Interpretation Comments FIBRINOGEN LEVEL (BEAKER) (test 487 mg/dl 225-434 H code = 658) [id number] 18:54:00 Test Item Value Reference Range Interpretation Comments PARTIAL THROMBOPLASTIN TIME 27.5 seconds 22.5-36.0 (BEAKER) (test code = 760) CBC W/PLT COUNT & AUTO [id number] 18:50:00 Test Item Value Reference Range Interpretation [...] (BEAKER) (test code = 2801) BLOOD GAS, [id number] 18:29:00 Test Item Value Reference Range Interpretation [...] 37.2 C (test code = 1818) CALCIUM, [id number] 18:29:00 Test Item Value Reference Range Interpretation Comments CALCIUM IONIZED (BEAKER) (test 1.01 mmol/L 1.12-1.27 L code = 698) PH, BLOOD (BEAKER) (test code = 7.45 1810) RAD, CHEST, 1 VIEW, NON [id number] 16:32:00Reason for exam:->post intubationShould this be performed [...] Riddle Verified Date/Time: 10/19/2019 16:32:05 Reading Location: [facility] C013W Consult Reading Room SARS-COV2/RT-PCR ([facility])2019-10-19 10:51:00 Test Item Value Reference Range Interpretation Comments SARS-COV2/RT-PCR (test code Negative Not Detected, Negative, = 2277253) See external report for linked test SARS-COV-2 PERFORMING LAB [facility] (test code = 0433810) Negative results do not preclude SARS-CoV-2 infection [...] of the Act.Fact Sheet for Healthcare Pro viders:https://www.[employer].Biocroí/Documents/Xpert%20Xpress%20SARS%20CoV-2/Fact%20Sh eets/302-3802%13LXXT-WNN-5%20HEALTHCARE%20PROVIDERS%20FACT%20SHEET.pdfFact Sheet for Healthcare Patients:https://www.[employer]/Documents/Xpert%20Xpress%20SARS%20CoV-2/Fact%20Sheets/302-3801%20SARS-COV -2%20PATIENT%20FACT%20SHEET.pdfPerforming Laboratory:[facility], [place] [address]DCOCWKM, [id number] 10:02:00 Test Item Value Reference Range Interpretation Comments CALCIUM IONIZED (BEAKER) (test 0.72 mmol/L 1.12-1.27 LL code = 698) PH, BLOOD (BEAKER) (test code = 7.39 1810) POTASSIUM-STAT [id number] 10:02:00 Test Item Value Reference Range Interpretation Comments POTASSIUM (BEAKER) (test code = 2.4 meq/L 3.6-5.5 LL 379) BLOOD GAS, [id number] 09:57:00 Test Item Value Reference Range Interpretation [...] code = 1819) 90.0 % SODIUM NA-STAT [id number] 09:57:00 Test Item Value Reference Range Interpretation Comments SODIUM (BEAKER) (test code = 381) 132 meq/L 136-145 L HGB/HCT (H&H) - STAT [id number] 09:57:00 Test Item Value Reference Range Interpretation Comments HEMOGLOBIN (BEAKER) (test code = 9.1 g/dL 13.0-16.8 L 410) HEMATOCRIT (BEAKER) (test code = 27.0 % 40.0-50.0 L 411) PH, [id number] 09:55:00 Test Item Value Reference Range Interpretation Comments PH ARTERIAL (BEAKER) (test code = 383) 7.39 7.35-7.45 GLUCOSE-STAT [id number] 09:55:00 Test Item Value Reference Range Interpretation Comments GLUCOSE RANDOM (BEAKER) (test code = 75 mg/dL 70-110 652) RAD, CHEST, 1 VIEW, NON [id number] 09:14:00Reason for exam:->de sat post intubationShould this [...] magnified by technique.Additional findings: None. Signed: JR Adriana, Joelle Boles Verified Date/Time: 10/19/2019 09:14:19 Reading Location: [facility] Radiology Reading Room [id number] 05:06:00 Test Item Value Reference Range Interpretation Comments PHOSPHORUS (BEAKER) (test code = 2.4 mg/dL 2.3-4.7 604) Flame Degreaser ID - PIAYA [id number] 05:06:00 Test Item Value Reference Range Interpretation Comments MAGNESIUM (BEAKER) (test code = 2.0 mg/dL 1.6-2.6 627) Flame Degreaser EUGENE ROLDAN LBASIC METABOLIC [id number] 05:06:00 Test Item Value Reference Range Interpretation [...] S NOT APPLICABLE FOR DIALYSIS PATIEN TS. Flame Degreaser EUGENE ROLDAN LHEPATIC FUNCTION [id number] 05:06:00 Test Item Value Reference Range Interpretation [...] code = 68 U/L 6-55 H 347) Flame Degreaser EUGENE [id number] 05:06:00 Test Item Value Reference Range Interpretation Comments LIPASE (BEAKER) (test code = 749) 50 U/L 8-78 Flame Degreaser ID - PIAYA LCBC (HEMOGRAM ONLY)2019-10-19 04:09:00 Test Item Value [...] (BEAKER) (test code = 413) HEPATIC FUNCTION [id number] 23:09:00 Test Item Value Reference Range Interpretation [...] code = 73 U/L 6-55 H 347) Flame Degreaser ID - DBOperator ID - JAMAR LBASIC METABOLIC [id number] 23:09:00 Test Item Value Reference Range Interpretation [...] S NOT APPLICABLE FOR DIALYSIS PATIEN TS. Flame Degreaser ID - DBFL, [id number] 15:35:00Reason for exam:->choledocholithiasisFluoroscopic unit utilized for a procedure performed in the OR. No interpretation was requested. Refer to the operative report for findings. Refer to PACS for patient radiation dose information. [id number] 07:26:00 Test Item Value Reference Range Interpretation Comments PHOSPHORUS (BEAKER) (test code = 2.4 mg/dL 2.3-4.7 604) Flame Degreaser ID - JAMAR [id number] 07:26:00 Test Item Value Reference Range Interpretation Comments MAGNESIUM (BEAKER) (test code = 1.8 mg/dL 1.6-2.6 627) Flame Degreaser ID - JAMAR LBASIC METABOLIC [id number] 07:26:00 Test Item Value Reference Range Interpretation [...] S NOT APPLICABLE FOR DIALYSIS PATIEN TS. Flame Degreaser ID - JAMAR LSpecimen slightly ictericHEPATIC FUNCTION [id number] 07:26:00 Test Item Value Reference Range Interpretation [...] code = 99 U/L 6-55 H 347) Flame Degreaser ID - PIOTONIEL LSpecimen slightly [id number] 07:26:00 Test Item Value Reference Range Interpretation Comments LIPASE (BEAKER) (test code = 749) 157 U/L 8-78 H Flame Degreaser ID - JAMAR LSpecimen slightly ictericPROTHROMBIN TIME/[id number] 04:23:00 Test Item Value Reference Range Interpretation [...] 0-0 (BEAKER) (test code = 413) PROTHROMBIN [id number] 06:00:00 Test Item Value Reference Range Interpretation [...] is 2.5-3.5 for patients wiht mechanical heart valves.[id number] 05:40:00 Test Item Value Reference Range Interpretation Comments PHOSPHORUS (BEAKER) (test code = 3.1 mg/dL 2.3-4.7 604) Flame Degreaser ID - [id number] 05:40:00 Test Item Value Reference Range Interpretation Comments MAGNESIUM (BEAKER) (test code = 1.8 mg/dL 1.6-2.6 627) Flame Degreaser ID - BSBASIC METABOLIC [id number] 05:40:00 Test Item Value Reference Range Interpretation [...] S NOT APPLICABLE FOR DIALYSIS PATIEN TS. Flame Degreaser ID - BSSpecimen slightly ictericHEPATIC FUNCTION [id number] 05:40:00 Test Item Value Reference Range Interpretation [...] code = 185 U/L 6-55 H 347) Flame Degreaser ID - BSSpecimen slightly [id number] 05:40:00 Test Item Value Reference Range Interpretation Comments LIPASE (BEAKER) (test code = 749) 574 U/L 8-78 H Flame Degreaser ID - BSSpecimen slightly ictericLACTIC ACID, [id number] 05:26:00 Test Item Value Reference Range Interpretation Comments LACTATE BLOOD VENOUS 1.63 mmol/L 0.50-2.20 Specime n slightly (2) (BEAKER) (test hemolyzed code = 6372) Flame Degreaser ID - BSSpecimen slightly ictericCBC (HEMOGRAM ONLY)2019-10-17 [...] 0-0 (BEAKER) (test code = 413) FL, [id number] 17:10:00INTRA OP IMAGING Reason for exam:->abnormal imagingFluoroscopic unit utilized for a procedure performed in the OR. No interpretation was requested. Refer to the operative report for findings. Refer to PACS for patient radiation dose information.[id number] 11:10:00 Test Item Value Reference Range Interpretation Comments PROCALCITONIN (BEAKER) (test code 0.78 ng/mL <0.05 H = 3036) SEPSIS RISK (ng/mL)Low: 0.05-0.50Intermediate: 0.51-2.00High: >=2.01LACTIC ACID, [id number] 10:39:00 Test Item Value Reference Range Interpretation Comments LACTATE BLOOD VENOUS 1.72 mmol/L 0.50-2.20 Specime n slightly (2) (BEAKER) (test hemolyzed code = 2872) Flame Degreaser ID - LMSpecimen slightly ictericSARS-COV2/RT-PCR ([facility]) 2019-10-16 10:08:00 Test Item Value Reference Range Interpretation Comments SARS-COV2/RT-PCR (test Negative Not Detected, Negative, code = 9020755) See external report for linked test SARS-COV-2 PERFORMING LAB [facility] (test code = 7574801) Negative result for this test determines that [...] of the Act.Fact Sheet for Healthcare Prov iders:https://www.[employer]/sites/default/files/product/documents/Fact_Sheet_HC _Imyflofah_Pkyt_QDTI-HtA-3.pdfFact Sheet for Healthcare Patients:https://www.[employer]/sites/default/files/product/docume nts/Pqpc_Rakew_Cqsvshez_Sbdq_QAGE-DzK-5.pdfPerforming Laboratory:[facility], [place] [id number] TIME/INR 2019-10-16 07:12:00 Test Item Value Reference [...] is 2.5-3.5 for patients wiht mechanical heart valves.[id number] 05:53:00 Test Item Value Reference Range Interpretation Comments PHOSPHORUS (BEAKER) (test code = 4.0 mg/dL 2.3-4.7 604) Flame Degreaser ID - DEMARCO [id number] 05:53:00 Test Item Value Reference Range Interpretation Comments MAGNESIUM (BEAKER) (test code = 1.7 mg/dL 1.6-2.6 627) Flame Degreaser ID Carter PAL WBASIC METABOLIC [id number] 05:53:00 Test Item Value Reference Range Interpretation [...] S NOT APPLICABLE FOR DIALYSIS PATIEN TS. Flame Degreaser ID Carter PAL WSpecimen moderately ictericHEPATIC FUNCTION [id number] 05:53:00 Test Item Value Reference Range Interpretation [...] code = 346 U/L 6-55 H 347) Flame Degreaser ID - DEMARCO WSpecimecatherine moderately ictericCBC (HEMOGRAM ONLY)2019-10-16 05:21:00 Test Item [...] 0-0 (BEAKER) (test code = 413) PROTHROMBIN [id number] 22:56:00 Test Item Value Reference Range Interpretation [...] mechanical heart valves.CBC W/PLT COUNT & AUTO [id number] 22:50:00 Test Item Value Reference Range Interpretation [...] 0-1 PERCENT (BEAKER) (test code = 2801) [id number] 22:45:00 Test Item Value Reference Range Interpretation Comments PHOSPHORUS (BEAKER) (test code = 3.9 mg/dL 2.3-4.7 604) Flame Degreaser ID - [id number] 22:45:00 Test Item Value Reference Range Interpretation Comments MAGNESIUM (BEAKER) (test code = 1.8 mg/dL 1.6-2.6 627) Flame Degreaser ID - BSCOMPREHENSIVE METABOLIC [id number] 22:45:00 Test Item Value Reference Range Interpretation [...] S NOT APPLICABLE FOR DIALYSIS PATIEN TS. Flame Degreaser ID - BSSpecimen moderately ictericBILIRUBIN, [id number] 22:45:00 Test Item Value Reference Range Interpretation Comments BILIRUBIN DIRECT (BEAKER) (test 4.6 mg/dL 0.1-0.5 H code = 706) Flame Degreaser ID - [id number] 22:45:00 Test Item Value Reference Range Interpretation Comments LIPASE (BEAKER) (test code = 749) 978 U/L 8-78 H Flame Degreaser ID - BSSpecimen moderately [id number] 08:46:00 Test Item Value Reference Range Interpretation Comments APPEARANCE (test code = Clear Clear 4294762777) COLOR (test code = Yellow Yellow 2904697191) PH (test code = 4.8-8.0 7788233720) SP GRAVITY (test code = 1.003-1.030 3171604980) GLU U QUAL (test code = Normal Normal 8330415185) BLOOD (test code = Negative Negative 5677212811) KETONES (test code = Negative Negative 3368592731) PROTEIN (test code = Negative Negative 2887-8) UROBILIN (test code = 2.0 mg/dL Normal A 7703360701) BILIRUBIN (test code = Negative Negative 8154931494) NITRITE (test code = Negative Negative 6475578271) LEUK JEANNINE (test code = Negative Negative 0870990576) RBC/HPF (test code = <1 See_Comment [Autom ated message] 7054189099) The system [employer] generated this result transmit maura reference range : 0 - 3 HPF. The refe rence range was not u sed to interpret th is result as normal/abnormal . WBC/HPF (test code = See_Comment H [Autom ated message] 8697408716) The system [employer] generated this result transmit maura reference range : 0 - 5 HPF. The refe rence range was not u sed to interpret th is result as normal/abnormal . BACTERIA (test code = Few Negative A 0945534422) MUCOUS (test code = Slight Negative LPF A 6882240342) SQ EPITH (test code = HPF 0965775407) TRANS EPI (test code = <1 See_Comment [Aut omated message] 7043773573) The system [employer] generated this result transmit maura reference range : <=1 HPF. The refere nce range was not u sed to interpret th is result as normal/abnormal . Lab Interpretation (test Abnormal code = 86099-2) [facility] [id number] 08:23:00 Test Item Value Reference Range Interpretation Comments NA (test code = 136 mmol/L 135-145 2005986099) K (test code = 4.0 mmol/L 3.5-5 6457865757) CL (test code = 103 mmol/L 98-108 6788254771) CO2 TOTAL (test code = 24 mmol/L 23-31 1856966215) AGAP (test code = 2-16 5980352277) BUN (test code = 11 mg/dL 7-23 2728727069) GLUCOSE (test code = 125 mg/dL 70-110 H 7988159536) CREATININE (test code = 0.78 mg/dL 0.6-1.25 0656413332) TOTAL BILI (test code = 1.9 mg/dL 0.1-1.1 H 9148532219) CALCIUM (test code = 9.1 mg/dL 8.6-10.6 6917478245) T PROTEIN (test code = 7.9 g/dL 6.3-8.2 2379909841) ALBUMIN (test code = 4.3 g/dL 3.5-5 0953854205) ALK PHOS (test code = 126 U/L 34-122 H 8438912381) ALTv (test code = 161 U/L 5-50 H 1742-6) AST(SGOT) (test code = 198 U/L 13-40 H 6472101852) eGFR Calculation mL/min/1.73m2 (Non-) (test code = 2503776051) eGFR Calculation mL/min/1.73m2 () (test code = 4306522232) MITCH (test code = MITCH) Association of [...] tests). Lab Interpretation Abnormal (test code = 98839-6) [facility] HospitalLipase, [id number] 08:23:00 Test Item Value Reference Range Interpretation Comments LIPASE (test code = 7623468568) 17 U/L 0-220 Lab Interpretation (test code = Normal 82363-4) [facility] HospitalCB WITH [id number] 08:09:00 Test Item Value Reference Range Interpretation Comments WBC (test code = See_Comment H [Automated 9741-2) message] The sy stem which generated this result transmitted reference range : 4.20 - 10.70 10*3/?L. The reference range was not used to interpret this result as normal/abnormal . RBC (test code = See_Comment [Automated 424-7) message] The sy stem which generated this result transmitted reference range : 4.26 - 5.52 10*6/?L. The reference range was not used to interpret this result as normal/abnormal . HGB (test code = 14.2 g/dL 12.2-16.4 028-7) HCT (test code = 43.3 % 38.4-49.3 4544-3) MCV (test code = 86.6 fL 81.7-95.6 787-2) MCH (test code = 28.4 pg 26.1-32.7 785-6) MCHC (test code = 32.8 g/dL 31.2-35 786-4) RDW-SD (test code = 40.7 fL 38.5-51.6 00124-6) RDW-CV (test code = 13.0 % 12.1-15.4 788-0) PLT (test code = See_Comment H [Automated 777-3) message] The sy stem which generated this result transmitted reference range : 150 - 328 10*3/ ?L. The reference r kirby was not used to interpret this result as normal/abnormal . MPV (test code = 8.6 fL 9.8-13 L 34737-2) NRBC/100 WBC (test See_Comment [Automat ed code = 2917016904) message] The system which generated this result transmitted reference range : 0.0 - 10.0 /100 WBCs. The refer ence range was not u sed to interpret th is result as normal/abnormal . NRBC x10^3 (test code <0.01 See_Comment [Auto mated = 1676724065) message] The s ystem which generated this result transmitted reference range : 10*3/?L. The reference range was not used to interpret this result as normal/abnormal . GRAN MAT (NEUT) % 78.6 % (test code = 770-8) IMM GRAN % (test code 0.30 % = 9654515910) LYMPH % (test code = 10.8 % 736-9) MONO % (test code = 7.2 % 5905-5) EOS % (test code = 2.9 % 713-8) BASO % (test code = 0.2 % 706-2) GRAN MAT x10^3(ANC) 9.65 10*3/uL 1.99-6.95 H (test code = 5315392072) IMM GRAN x10^3 (test 0.04 10*3/uL 0-0.06 code = 9782844101) LYMPH x10^3 (test code 1.33 10*3/uL 1.09-3.23 = 731-0) MONO x10^3 (test code 0.88 10*3/uL 0.36-1.02 = 742-7) EOS x10^3 (test code = 0.36 10*3/uL 0.06-0.53 711-2) BASO x10^3 (test code 0.03 10*3/uL 0.01-0.09 = 704-7) Lab Interpretation Abnormal (test code = 74303-6) [facility]
[2023-02-14] MEDS ORDERED: CYCLOBENZAPRINE 10 MG TAB ONE (22:25)
[2023-02-14] MEDS ORDERED: KETOROLAC 30 MG/ML INJ ONE (22:26)
[2023-02-14] MEDS ORDERED: MORPHINE 4 MG/ML SYR ONE (22:26)
[2023-02-14] MEDS ORDERED: ONDANSETRON 4 MG/2 ML VIAL ONE (22:26)
[2023-02-15] MEDS ORDERED: PROMETHAZINE 25 MG TABLET ONE (00:49)
[2023-02-15] MEDS ORDERED: HYDROCODONE/APAP 10/325 TAB ONE (00:49)
[2023-02-15] MEDS ORDERED: MORPHINE 4 MG/ML SYR ONE ×2 (00:49→02:31)
[2023-02-15] MEDS ORDERED: IBUPROFEN 400 MG TAB ONE (00:50)
[2023-02-15] MEDS ORDERED: dexAMETHasone 10 MG/ML VIAL ONE (02:31)
--- NOTE | 2023-02-15 04:31 | EDPHYS ---
Physician Documentation [facility] Name: Antelmo Vaughn Age: 22 yrs Sex: Male : 2000 Arrival Date: 02/14/2023 Time: 21:44 Bed 17 Private MD: ED Physician Delgado Singh HPI: 02/14 21:59 This 22 yrs old Black Male presents to ER via EMS with complaints of General complaint .sp4 22:09 22-year-old male history of obesity presents with worsening lower back pain starting 1 sp4 week ago. Patient states 1 week ago he has held his mother out of the bathtub causing lower back pain. Today he developed moderate to severe back pain while getting out of his car. Patient arrived here with EMS complaining of moderate to severe back pain associated with difficulty walking. . 02/15 02:24 Patient states pain is moderate to severe. sp4 Historical: - Allergies: 02/14 21:58 No Known Allergies; jj7 - PSHx: 21:58 Cholecystectomy; jj7 - Immunization history:: Adult Immunizations up to date. - Social history:: Smoking status: Reported history of juuling and/or vaping. Patient/guardian denies using alcohol, street drugs. - Family history:: not pertinent. ROS: 02/15 02:24 Constitutional: Negative for fever, chills, and weight loss, Back: Positive for back sp4 sprain , positive for back pain, positive for moderate to severe lower back pain All other systems are negative, Exam: 02:24 Constitutional: This is a well developed, well nourished patient who is awake, alert, sp4 and in no acute distress. Head/Face: Normocephalic, atraumatic. Eyes: Pupils equal round and reactive to light, extra-ocular motions intact. Lids and lashes normal. Conjunctiva and sclera are not injected. Cornea within normal limits. Periorbital areas with no swelling, redness, or edema. ENT: Nares patent. No nasal discharge, no septal abnormalities noted. Tympanic membranes are normal and external auditory canals are clear. Oropharynx with no redness, swelling, or masses, exudates, or evidence of obstruction, uvula midline. Mucous membranes moist. Neck: Trachea midline, no thyromegaly or masses palpated, and no cervical lymphadenopathy. Supple, full range of motion without nuchal rigidity, or vertebral point tenderness. Chest/axilla: Normal chest wall appearance and motion. Nontender with no deformity. No lesions are appreciated. Cardiovascular: Regular rate and rhythm with a normal S1 and S2. No gallops, murmurs, or rubs. Normal PMI, no JVD. No pulse deficits. Respiratory: Lungs have equal breath sounds bilaterally, clear to auscultation and percussion. No rales, rhonchi or wheezes noted. No increased work of breathing, no retractions or nasal flaring. Abdomen/GI: Soft, non-tender, with normal bowel sounds. No distension or tympany. No guarding or rebound. No evidence of tenderness throughout. Back: No spinal tenderness. No costovertebral tenderness. Skin: Warm, dry with normal turgor. Normal color with no rashes, no lesions, and no evidence of cellulitis. MS/ Extremity: Pulses equal, no cyanosis. Neurovascular intact. Full, normal range of motion. Normal bilateral strength in lower extremities Neuro: Awake and alert, GCS 15, oriented to person, place, time, and situation. Cranial nerves II-XII grossly intact. Motor strength 5/5 in all extremities. Sensory grossly intact. Psych: Awake, alert, with orientation to person, place and time. Behavior, mood, and affect are within normal limits Vital Signs: 02/14 21:46 BP 129 / 71; Pulse 78; Resp 18; Temp 97.9; Pulse Ox 100% on R/A; Weight 158.76 kg; 7 Height 6 ft. 5 in. ; Pain 9/10; 23:00 BP 108 / 51; Pulse 58; Resp 17; Pulse Ox 100% ; jj7 02/15 00:00 BP 98 / 59; Pulse 55; Resp 17; Pulse Ox 95% ; j7 01:08 BP 105 / 53; Pulse 69; Resp 16; Pulse Ox 99% ; j7 02:15 BP 135 / 79; Pulse 64; Resp 17; Pulse Ox 97% ; j7 03:15 BP 112 / 45; Pulse 73; Resp 20; Pulse Ox 97% ; j7 04:15 BP 94 / 55; Pulse 62; Resp 17; Pulse Ox 94% ; Pain 0/10; j7 05:10 BP 136 / 88; Pulse 57; Resp 16; Pulse Ox 96% ; jj7 06:19 BP 121 / 66; Pulse 57; Resp 20; Pulse Ox 96% ; jj7 02/14 21:46 Body Mass Index 41.50 (158.76 kg, 195.58 cm) jj7 02/14 21:46 Pain Scale: Adult jj7 04:15 Pain Scale: Adult jj7 MDM: 02/14 22:17 Patient medically screened. sp4 02/15 00:24 ED course: - CT report - CLINICAL HISTORY: 22 years Male back pain acute COMPARISON: sp4 None TECHNIQUE: Multiplanar imaging through the lumbar spine without contrast. This exam was performed according to our departmental dose-optimization program, which includes automated exposure control, adjustment of the mA and/or kV according to patient size and/or use of iterative reconstruction technique. DLP: 2036 mGy*cm FINDINGS: No fracture. No subluxation. Disc spaces are preserved. Paraspinal soft tissues are unremarkable. Visualized abdomen demonstrates no acute abnormality. IMPRESSION: No fracture or subluxation. . 02:24 Differential Diagnosis Back sprain, compression fracture, radiculopathy. Data reviewed: sp4 vital signs, nurses notes, radiologic studies, CT scan. 04:30 Consideration of Admission/Observation Escalation of care including sp4 admission/observation considered. 02/14 23:04 Order name: CT Lumbar Spine Wo Con sp4 02/14 22:08 Order name: Saline Lock; Complete Time: 22:29 sp4 Administered Medications: 02/14 22:30 Drug: morphine IVP or IV 8 mg IVP once over 4 mins Route: IVP; Infused Over: 4 mins; jj7 Site: right antecubital; 22:50 Follow up: Response: Marked relief of symptoms jj7 22:30 Drug: Ketorolac IVP 60 mg IVP once Route: IVP; Site: right antecubital; jj7 22:50 Follow up: Response: Marked relief of symptoms jj7 22:30 Drug: Ondansetron IVP 8 mg IVP once; over 2 minutes Route: IVP; Site: right antecubital;jj7 22:50 Follow up: Response: Marked relief of symptoms jj7 22:30 Drug: Cyclobenzaprine PO 10 mg PO once Route: PO; jj7 22:55 Follow up: Response: Marked relief of symptoms jj7 02/15 00:42 Drug: [place] PO 10 mg-325 mg 1 tabs PO once Route: PO; jj7 01:00 Follow up: Response: Marked relief of symptoms jj7 00:42 Drug: Ibuprofen PO 800 mg PO once Route: PO; jj7 01:00 Follow up: Response: Marked relief of symptoms jj7 00:43 Drug: Promethazine PO 25 mg PO once Route: PO; jj7 01:00 Follow up: Response: Marked relief of symptoms jj7 00:43 Drug: morphine IVP or IV 4 mg IVP once over 4 mins Route: IVP; Infused Over: 4 mins; jj7 Site: right antecubital; 01:00 Follow up: Response: Pain is decreased jj7 02:26 Drug: morphine IM 8 mg IM once Route: IM; Site: right vastus lateralis; jj7 02:40 Follow up: Response: Marked relief of symptoms jj7 02:26 Drug: Dexamethasone IM 10 mg IM once Route: IM; Site: right vastus lateralis; jj7 02:40 Follow up: Response: Marked relief of symptoms jj7 Disposition Summary: 02/15/23 06:13 Discharge Ordered Notes: We recommend bed rest for 3 days Location: Home(02/15/23 06:13) sp4 Problem: new(02/15/23 06:13) sp4 Symptoms: have improved(02/15/23 06:13) sp4 Condition: Stable(02/15/23 06:13) sp4 Diagnosis - Sprain of other parts of lumbar spine and pelvis(02/15/23 06:13) sp4 - Acute lumbar sprain sp4 Followup: sp4 - With: Dennis Colin MD - When: 7 - 10 days - Reason: Recheck today's complaints Discharge Instructions: - Discharge Summary Sheet sp4 - Lumbar Sprain sp4 Forms: - Patient Portal Instructions sp4 Signatures: Dispatcher [employer] Vijay Sauer RN RN jj7 Delgado Singh MD MD sp4 Corrections: (The following items were deleted from the chart) 04:35 04:31 Home sp4 sp4 04:35 04:31 new sp4 sp4 04:35 04:31 have improved sp4 sp4 04:35 04:31 Stable sp4 sp4 04:35 04:31 Sprain of ligaments of lumbar spine sp4 sp4 04:35 04:31 Sprain of other parts of lumbar spine and pelvis sp4 sp4
--- NOTE | 2023-02-15 04:31 | ER ---
Nurse's Notes [facility] Name: Antelmo Vaughn Age: 22 yrs Sex: Male : 2000 Arrival Date: 02/14/2023 Time: 21:44 Bed 17 Private MD: Diagnosis: Sprain of other parts of lumbar spine and pelvis;Acute lumbar sprain Presentation: 02/14 21:46 Chief complaint: Patient states: PT STATES HE WAS HELPING HIS MOTHER OUT THE SHOWER AND jj7 HE TWISTED HIS BACK 1 WK AGO. IT HAS BEEN TENDER BUT GOT WORSE TONIGHT WHERE HE CAN'T MOVE WITHOUT PAIN. Coronavirus screen: At this time, the client does not indicate any symptoms associated with coronavirus-19. Ebola Screen: No symptoms or risks identified at this time. Initial Sepsis Screen: Does the patient meet any 2 criteria? No. Patient's initial sepsis screen is negative. Does the patient have a suspected source of infection? No. Patient's initial sepsis screen is negative. Risk Assessment: Do you want to hurt yourself or someone else? Patient reports no desire to harm self or others. Onset of symptoms was February 14, 2023. 21:46 Method Of Arrival: EMS: [facility] jj7 21:46 Acuity: RICKEY 4 jj7 Triage Assessment: 21:58 General: Appears in no apparent distress. uncomfortable, Behavior is calm, cooperative, jj7 appropriate for age. Pain: Complains of pain in back. Historical: - Allergies: 21:58 No Known Allergies; jj7 - PSHx: 21:58 Cholecystectomy; jj7 - Immunization history:: Adult Immunizations up to date. - Social history:: Smoking status: Reported history of juuling and/or vaping. Patient/guardian denies using alcohol, street drugs. - Family history:: not pertinent. Screenin:[facility] ED Fall Risk Assessment (Adult) History of falling in the last 3 months, jj7 including since admission No falls in past 3 months (0 pts) Confusion or Disorientation No (0 pts) Intoxicated or Sedated No (0 pts) Impaired Gait No (0 pts) Mobility Assist Device Used No (0 pt) Altered Elimination No (0 pt) Score/Fall Risk Level 0 - 2 = Low Risk Oriented to surroundings, Maintained a safe environment, Educated pt \T\ family on fall prevention, incl call for assistance when getting out of bed. Abuse screen: Denies threats or abuse. Nutritional screening: No deficits noted. Tuberculosis screening: No symptoms or risk factors identified. Assessment: 21:59 Reassessment: SEE TRIAGE ASSESSMENT. j7 23:00 Reassessment: Patient is alert, oriented x 3, equal unlabored respirations, skin jj7 warm/dry/pink. 02/15 00:43 Reassessment: Patient is alert, oriented x 3, equal unlabored respirations, skin jj7 warm/dry/pink. 02:00 Reassessment: ATTEMPTED TO GET PT UP AND WALK. PT IN PAIN UNABLE TO WALK. MD AT BEDSIDE j7 ASSESSING PT'S STRENGTH. PT IN SEVERE PAIN. Vital Signs: 02/14 21:46 BP 129 / 71; Pulse 78; Resp 18; Temp 97.9; Pulse Ox 100% on R/A; Weight 158.76 kg; j7 Height 6 ft. 5 in. ; Pain 9/10; 23:00 BP 108 / 51; Pulse 58; Resp 17; Pulse Ox 100% ; jj7 02/15 00:00 BP 98 / 59; Pulse 55; Resp 17; Pulse Ox 95% ; jj7 01:08 BP 105 / 53; Pulse 69; Resp 16; Pulse Ox 99% ; jj7 02:15 BP 135 / 79; Pulse 64; Resp 17; Pulse Ox 97% ; jj7 03:15 BP 112 / 45; Pulse 73; Resp 20; Pulse Ox 97% ; jj7 04:15 BP 94 / 55; Pulse 62; Resp 17; Pulse Ox 94% ; Pain 0/10; jj7 05:10 BP 136 / 88; Pulse 57; Resp 16; Pulse Ox 96% ; jj7 06:19 BP 121 / 66; Pulse 57; Resp 20; Pulse Ox 96% ; j7 02/14 21:46 Body Mass Index 41.50 (158.76 kg, 195.58 cm) j7 02/14 21:46 Pain Scale: Adult jj7 04:15 Pain Scale: Adult jj7 ED Course: 02/14 21:46 Patient arrived in ED. mb9 21:55 Vijay Bonds RN is Primary Nurse. jj7 21:58 Triage completed. jj7 21:58 Delgado Singh MD is Attending Physician. sp4 21:58 Arm band placed on right wrist. Patient placed in an exam room, on a stretcher. jj7 21:59 Patient has correct armband on for positive identification. Bed in low position. Call jj7 light in reach. Side rails up X2. 22:28 Inserted saline lock: 20 gauge in right antecubital area, using aseptic technique. jj7 02/15 00:02 CT Lumbar Spine Wo Con In Process Unspecified. EDMS 04:30 Duc Coffey DO is Referral Physician. sp4 06:13 Dennis Colin MD is Referral Physician. sp4 06:39 Provided Education on: MEDS. jj7 06:39 No provider procedures requiring assistance completed. IV discontinued, intact, jj7 bleeding controlled, No redness/swelling at site. Pressure dressing applied. Administered Medications: 02/14 22:30 Drug: morphine IVP or IV 8 mg IVP once over 4 mins Route: IVP; Infused Over: 4 mins; jj7 Site: right antecubital; 22:50 Follow up: Response: Marked relief of symptoms jj7 22:30 Drug: Ketorolac IVP 60 mg IVP once Route: IVP; Site: right antecubital; jj7 22:50 Follow up: Response: Marked relief of symptoms jj7 22:30 Drug: Ondansetron IVP 8 mg IVP once; over 2 minutes Route: IVP; Site: right antecubital;jj7 22:50 Follow up: Response: Marked relief of symptoms jj7 22:30 Drug: Cyclobenzaprine PO 10 mg PO once Route: PO; jj7 22:55 Follow up: Response: Marked relief of symptoms jj7 02/15 00:42 Drug: [place] PO 10 mg-325 mg 1 tabs PO once Route: PO; jj7 01:00 Follow up: Response: Marked relief of symptoms jj7 00:42 Drug: Ibuprofen PO 800 mg PO once Route: PO; jj7 01:00 Follow up: Response: Marked relief of symptoms jj7 00:43 Drug: Promethazine PO 25 mg PO once Route: PO; jj7 01:00 Follow up: Response: Marked relief of symptoms jj7 00:43 Drug: morphine IVP or IV 4 mg IVP once over 4 mins Route: IVP; Infused Over: 4 mins; jj7 Site: right antecubital; 01:00 Follow up: Response: Pain is decreased jj7 02:26 Drug: morphine IM 8 mg IM once Route: IM; Site: right vastus lateralis; jj7 02:40 Follow up: Response: Marked relief of symptoms jj7 02:26 Drug: Dexamethasone IM 10 mg IM once Route: IM; Site: right vastus lateralis; jj7 02:40 Follow up: Response: Marked relief of symptoms jj7 Medication: 02/14 21:59 VIS not applicable for this client. jj7 Outcome: 02/15 04:31 Discharge ordered by . sp4 06:13 Discharge ordered by . sp4 06:39 Discharged to home via wheelchair, jj7 06:39 Condition: stable 06:39 Discharge instructions given to patient, Instructed on discharge instructions, follow up and referral plans. medication usage, Demonstrated understanding of instructions, follow-up care, medications, Prescriptions given X 3, 06:56 Patient left the ED. jj7 Signatures: Dispatcher [employer] EDMS Vijay Bonds RN RN jj7 Zelda Laughlin RN RN mb9 Delgado Singh MD MD sp4 Corrections: (The following items were deleted from the chart) 03:36 03:15 BP 112 / 45; Pulse 73bpm; Resp 20bpm; Pulse Ox 93%; jj7 jj7
[2023-02-15 07:00] VITALS: TEMP 97.9
[2023-02-15 07:12] VITALS: O2SAT 96
[2023-02-15 07:13] VITALS: BP 121/66
--- NOTE | 2023-02-15 14:40 | RAD REPORT ---
EXAM DESCRIPTION: CT LUMBAR SPINE WITHOUT CONTRAST CLINICAL HISTORY: 22 years Male back pain acute COMPARISON: None TECHNIQUE: Multiplanar imaging through the lumbar spine without contrast. This exam was performed according to our departmental dose-optimization program, which includes automated exposure control, a djustment of the mA and/or kV according to patient size and/or use of iterative reconstruction techni que. DLP: 2036 mGy*cm FINDINGS: No fracture. No subluxation. Disc spaces are preserved. Paraspinal soft tissues are unremarkable. Visualized abdomen demonstrates no acute abnormality. IMPRESSION: No fracture or subluxation. Electronically signed by: Bassam Oneill DO 02/15/2023 12:08 AM BRICK DROPPER Due to temporary technical issues with the PACS/Fluency reporting system, reports are being signed by the in house radiologists without review as a courtesy to insure prompt reporting. The interpreting radiologist is fully responsible for the content of the report.
== END 2023-02-15 06:56 | disposition home or self-care (01) ==
LOC: ER 21:44
DX: S33.8XXA Sprain of other parts of lumbar spine and pelvis, initial encounter (principal); Z87.891 Personal history of nicotine dependence
CPT/HCPCS: 72131; 96372; 96374; 96375; 99284; J1100; J2405; Q0169

== ENCOUNTER 2024-02-25 08:48 | Emergency (ER) | payer SELFPAY ==
--- NOTE | 2024-02-25 09:56 | RAD REPORT ---
EXAM: Chest Pa And Lat (2 Views) HISTORY: Cough;Dyspnea COMPARISON: 09/12/2022 FINDINGS: LUNGS/PLEURA: The lungs are clear. No pleural effusions or pneumothorax. No pulmonary edema. MEDIASTINUM: The mediastinal silhouette is within normal limits. CARDIAC: The cardiac silhouette is within normal limits. UPPER ABDOMEN: No significant abnormality. BONES: No acute fracture. LINES/TUBES/OTHER: N/A IMPRESSION: No evidence of acute cardiopulmonary disease.
[2024-02-25 09:58] LABS: SARS-CoV-2 Antigen CONTROL BLUE LINE VIS/BG OK; SARS-CoV-2 Antigen Rapid Res Negative (Negative)
--- NOTE | 2024-02-25 10:07 | EDPHYS ---
Physician Documentation [facility] Name: Antelmo Vaughn Age: 23 yrs Sex: Male : 2000 Arrival Date: 02/25/2024 Time: 08:48 Bed 12 Private MD: ED Physician Baron Garcia HPI: 02/24 09:01 This 23 yrs old Black Male presents to ER via Unassigned with complaints of Fever, kb Cough, Shortness Of Breath. 09:01 Pt is a 23 year old male who presents for cough, congestion, shortness of breath, kb fever, chills that started 4 days ago. States symptoms started after inhaling PVC dust at work. No aggravating factors. States cough is constant unless he has a cough drop in. . Historical: - Allergies: 09:09 No Known Allergies; ss - Home Meds: 09:09 None [Active]; ss - PMHx: 09:09 None; ss - PSHx: 09:09 Cholecystectomy; ss - Immunization history:: Client reports having NOT received the Covid vaccine. - Infectious Disease History:: Denies. - Social history:: Smoking status: Reported history of juuling and/or vaping. ROS: 09:01 Constitutional: As per HPI kb Exam: 09:01 Constitutional: This is a well developed, well nourished patient who is awake, alert, kb and in no acute distress. Head/Face: Normocephalic, atraumatic. ENT: Moist Mucous membranes Cardiovascular: Regular rate Respiratory: Respirations even and unlabored. No increased work of breathing. Talking in full sentences Abdomen/GI: Soft, non-tender. No distention Skin: Warm, dry with normal turgor. Normal color. MS/ Extremity: Pulses equal, no cyanosis. Neurovascular intact. Full, normal range of motion. Neuro: Awake and alert, GCS 15, oriented to person, place, time, and situation. Vital Signs: 09:07 BP 129 / 82; Pulse 101; Resp 16; Temp 98.9(O); Pulse Ox 98% on R/A; Weight 163.29 kg; ss Height 6 ft. 5 in. ; Pain 0/10; 09:07 Body Mass Index 42.69 (163.29 kg, 195.58 cm) 09:07 Pain Scale: Adult ss MDM: 08:53 Medical Screening Exam initiated kb 09:04 Data reviewed: vital signs, nurses notes. kb 10:01 Differential diagnosis: flu, covid, chemical inhalation, pneumonia, uri. I considered kb the following discharge prescriptions or medication management in the emergency department I discussed and recommended Over The Counter medications, Antibiotics: At this time antibiotics are not recommended, Antivirals: At this time, antivirals are not recommended. Counseling: I had a detailed discussion with the patient and/or guardian regarding the historical points, exam findings, and any diagnostic results supporting the discharge/admit diagnosis, lab results, radiology results, the need for outpatient follow up, a family practitioner, to return to the emergency department if symptoms worsen or persist or if there are any questions or concerns that arise at home. 02/24 08:53 Order name: Flu; Complete Time: 10:01 kb 02/24 08:53 Order name: SARS-COV-2 Antigen Rapid; Complete Time: 10:01 kb 02/24 09:04 Order name: Chest Pa And Lat (2 Views) XRAY; Complete Time: 10:01 kb Administered Medications: No medications were administered Disposition Summary: 02/25/24 10:07 Discharge Ordered Notes: Location: Home kb Condition: Stable kb Diagnosis - Influenza due to identified novel influenza A virus kb Followup: kb - With: Emergency Department - When: As needed - Reason: Worsening of condition Followup: kb - With: Private Physician - When: 2 - 3 days - Reason: Recheck today's complaints, Continuance of care, Re-evaluation by your physician Discharge Instructions: - Discharge Summary Sheet kb - Influenza, Adult, [id number] kb Forms: - Work release form kb - Medication Reconciliation Form kb - Antibiotic Education kb - Prescription Opioid Use kb - Patient Portal Instructions kb - Leadership Thank You Letter kb Prescriptions: - Tessalon Perles 100 mg Oral Capsule - take 1 capsule ORAL route every 8 hours As needed; 15 capsule; Refills: 0, kb Product Selection Permitted Signatures: Dispatcher [employer] Lakeisha Zuñiga, SONALI PRATT-Irena Herrera, RN RN ss
--- NOTE | 2024-02-25 10:07 | ER ---
Nurse's Notes [facility] Name: Antelmo Vaughn Age: 23 yrs Sex: Male : 2000 Arrival Date: 02/25/2024 Time: 08:48 Bed 12 Private MD: Diagnosis: Influenza due to identified novel influenza A virus Presentation: 02/24 09:07 Chief complaint: Patient states: fever, cough, congestion and shortness of breath that ss began Tuesday after inhaling PVC dust. Coronavirus screen: Client denies travel out of the [place] in the last 14 days. Ebola Screen: Patient denies exposure to infectious person. Patient denies travel to an Ebola-affected area in the 21 days before illness onset. Initial Sepsis Screen: Does the patient meet any 2 criteria? No. Patient's initial sepsis screen is negative. Does the patient have a suspected source of infection? No. Patient's initial sepsis screen is negative. Risk Assessment: Do you want to hurt yourself or someone else? Patient reports no desire to harm self or others. Onset of symptoms was February 22, 2024. 09:07 Method Of Arrival: Ambulatory ss 09:07 Acuity: RICKEY 3 ss Historical: - Allergies: 09:09 No Known Allergies; ss - Home Meds: 09:09 None [Active]; ss - PMHx: 09:09 None; ss - PSHx: 09:09 Cholecystectomy; ss - Immunization history:: Client reports having NOT received the Covid vaccine. - Infectious Disease History:: Denies. - Social history:: Smoking status: Reported history of juuling and/or vaping. Screenin:02 [facility] ED Fall Risk Assessment (Adult) Confusion or Disorientation No (0 pts) ss Intoxicated or Sedated No (0 pts) Impaired Gait No (0 pts) Mobility Assist Device Used No (0 pt) Altered Elimination No (0 pt) Score/Fall Risk Level 0 - 2 = Low Risk Oriented to surroundings, Maintained a safe environment. 10:29 [facility] ED Fall Risk Assessment (Adult) History of falling in the last 3 months, ss including since admission No falls in past 3 months (0 pts). Abuse screen: Denies threats or abuse. Denies injuries from another. Nutritional screening: No deficits noted. Tuberculosis screening: No symptoms or risk factors identified. Assessment: 09:02 General: Appears uncomfortable, ill, Behavior is calm, cooperative, Reports fever for ss 2-3 days, feeling ill for 2-3 days. Neuro: Level of Consciousness is awake, alert, obeys commands, Oriented to person, place, time, situation. Respiratory: Airway is patent Respiratory effort is even, unlabored, Respiratory pattern is regular, symmetrical. Respiratory: Reports cough that is dry, persistent. EENT: Oral mucosa is moist. Derm: Skin is pink, warm \T\ dry. normal. Vital Signs: 09:07 BP 129 / 82; Pulse 101; Resp 16; Temp 98.9(O); Pulse Ox 98% on R/A; Weight 163.29 kg; ss Height 6 ft. 5 in. ; Pain 0/10; 09:07 Body Mass Index 42.69 (163.29 kg, 195.58 cm) ss 09:07 Pain Scale: Adult ss ED Course: 08:51 Patient arrived in ED. mr 08:53 Lakeisha Rao FNP-C [facility]. kb 08:53 Baron Garcia MD is Attending Physician. kb 09:08 Triage completed. ss 09:09 Arm band placed on left wrist. ss 09:50 Chest Pa And Lat (2 Views) XRAY In Process Unspecified. EDMS 10:29 Patient has correct armband on for positive identification. Bed in low position. Call ss light in reach. 10:29 No provider procedures requiring assistance completed. Patient did not have IV access ss during this emergency room visit. Administered Medications: No medications were administered Medication: 09:02 VIS not applicable for this client. ss Outcome: 10:07 Discharge ordered by . kb 10:29 Discharged to home ambulatory, ss 10:29 Condition: good 10:29 Discharge instructions given to patient, Instructed on discharge instructions, follow up and referral plans. medication usage, Demonstrated understanding of instructions, follow-up care, medications, Prescriptions given X 1, 10:31 Patient left the ED. ss Signatures: Dispatcher [employer] EDTN Lakeisha Rao FNP-C FNP-Zelda Fraga, Reg Reg Irena Vargas, RN RN ss
[2024-02-25 11:21] VITALS: BP 129/82; TEMP 98.9; O2SAT 98
== END 2024-02-25 10:31 | disposition home or self-care (01) ==
LOC: ER 08:48
DX: J10.1 Influenza due to other identified influenza virus with other respiratory manifestations (principal); Z11.52 Encounter for screening for COVID-19
CPT/HCPCS: 36415; 71046; 87804; 87811; 99283

== ENCOUNTER 2024-02-28 19:11 | Emergency (ER) | payer SELFPAY ==
--- NOTE | 2024-02-28 19:24 | EDPHYS ---
Physician Documentation [facility] Name: Antelmo Vaughn Age: 23 yrs Sex: Male : 2000 Arrival Date: 02/28/2024 Time: 19:11 Bed IW3 Private MD: ED Physician Triston Teresa HPI: 02/27 19:19 This 23 yrs old Black Male presents to ER via Unassigned with complaints of Flu+, Fever.kb 19:19 Pt is a 23 year old male who presents for continued cough and sore throat. Pt was kb diagnosed with the flu 5 days ago and had a note to return to work on Tuesday. States he wasn't ready to go back so his employer told him he needed to be reevaluated. States he has been fever free since yesterday. . Historical: - Allergies: 19:26 No Known Allergies; lg3 - Home Meds: 19:26 None [Active]; lg3 - PMHx: 19:26 None; lg3 - PSHx: 19:26 Cholecystectomy; lg3 - Immunization history:: Adult Immunizations up to date. - Infectious Disease History:: Denies. - Social history:: Smoking status: Reported history of juuling and/or vaping. Patient uses alcohol, occasionally. Patient/guardian denies using street drugs. ROS: 19:18 Constitutional: As per HPI kb Exam: 19:23 Constitutional: This is a well developed, well nourished patient who is awake, alert, kb and in no acute distress. Head/Face: Normocephalic, atraumatic. ENT: Moist Mucous membranes Cardiovascular: Regular rate Respiratory: Respirations even and unlabored. No increased work of breathing. Talking in full sentences Skin: Warm, dry with normal turgor. Normal color. MS/ Extremity: Pulses equal, no cyanosis. Neurovascular intact. Full, normal range of motion. Neuro: Awake and alert, GCS 15, oriented to person, place, time, and situation. Vital Signs: 19:21 BP 128 / 72; Pulse 84; Resp 17 S; Temp 98.7(O); Pulse Ox 95% on R/A; Weight 163.29 kg lg3 (R); Height 6 ft. 5 in. (R); Pain 0/10; 19:21 Body Mass Index 42.69 (163.29 kg, 195.58 cm) lg3 19:21 Pain Scale: Adult lg3 MDM: 19:17 Medical Screening Exam initiated kb 19:21 Data reviewed: vital signs, nurses notes. kb 19:23 Differential diagnosis: flu, covid, uri, pneumonia. Counseling: I had a detailed kb discussion with the patient and/or guardian regarding the historical points, exam findings, and any diagnostic results supporting the discharge/admit diagnosis, the need for outpatient follow up, a family practitioner, to return to the emergency department if symptoms worsen or persist or if there are any questions or concerns that arise at home. Administered Medications: No medications were administered Disposition Summary: 02/28/24 19:23 Discharge Ordered Notes: Location: Home kb Condition: Stable kb Diagnosis - Influenza due to identified novel influenza A virus kb Followup: kb - With: Emergency Department - When: As needed - Reason: Worsening of condition Followup: kb - With: Private Physician - When: 2 - 3 days - Reason: Recheck today's complaints, Continuance of care, Re-evaluation by your physician Discharge Instructions: - Discharge Summary Sheet kb - Influenza, Adult, [id number] kb Forms: - Work release form kb - Medication Reconciliation Form kb - Antibiotic Education kb - Prescription Opioid Use kb - Patient Portal Instructions kb - Leadership Thank You Letter kb Signatures: Lakeisha Rao FNP-C FNP-Jocelyne Perry, RN RN lg3
--- NOTE | 2024-02-28 19:34 | ER ---
Nurse's Notes [facility] Name: Antelmo Vaughn Age: 23 yrs Sex: Male : 2000 Arrival Date: 02/28/2024 Time: 19:11 Bed IW3 Private MD: Diagnosis: Influenza due to identified novel influenza A virus Presentation: 02/27 19:21 Chief complaint: Patient states: flu + for 5 days. still running fever. Coronavirus lg3 screen: Client denies travel out of the [place] in the last 14 days. Client presents with at least one sign or symptom that may indicate coronavirus-19. Standard/surgical mask placed on the client. Ebola Screen: No symptoms or risks identified at this time. Initial Sepsis Screen: Does the patient meet any 2 criteria? No. Patient's initial sepsis screen is negative. Does the patient have a suspected source of infection? No. Patient's initial sepsis screen is negative. Risk Assessment: Do you want to hurt yourself or someone else? Patient reports no desire to harm self or others. Onset of symptoms is unknown. 19:21 Method Of Arrival: Ambulatory lg3 19:21 Acuity: RICKEY 5 lg3 Triage Assessment: 19:26 General: Appears in no apparent distress. comfortable, Behavior is calm, cooperative. lg3 Pain: Complains of pain in throat Pain does not radiate. Pain currently is 1 out of 10 on a pain scale. EENT: No deficits noted. Throat is clear is pink. Neuro: No deficits noted. Paz Agitation-Sedation Scale (RASS): 0 - Alert and Calm Level of Consciousness is awake, alert, obeys commands, Oriented to person, place, time, situation. Cardiovascular: No deficits noted. Denies chest pain, shortness of breath, Capillary refill < 3 seconds Clubbing of nail beds is absent JVD is absent Patient's skin is warm and dry. Respiratory: No deficits noted. Airway is patent Respiratory effort is even, unlabored, Respiratory pattern is regular, symmetrical. GI: No deficits noted. No signs and/or symptoms were reported involving the gastrointestinal system. : No signs and/or symptoms were reported regarding the genitourinary system. Derm: No deficits noted. No signs and/or symptoms reported regarding the dermatologic system. Skin is intact, is healthy with good turgor, Skin is dry, Skin is normal, Skin temperature is warm. Musculoskeletal: No deficits noted. No signs and/or symptoms reported regarding the musculoskeletal system. Circulation, motion, and sensation intact. Range of motion: intact in all extremities. Historical: - Allergies: 19:26 No Known Allergies; lg3 - Home Meds: 19:26 None [Active]; lg3 - PMHx: 19:26 None; lg3 - PSHx: 19:26 Cholecystectomy; lg3 - Immunization history:: Adult Immunizations up to date. - Infectious Disease History:: Denies. - Social history:: Smoking status: Reported history of juuling and/or vaping. Patient uses alcohol, occasionally. Patient/guardian denies using street drugs. Screenin:27 [facility] ED Fall Risk Assessment (Adult) History of falling in the last 3 months, lg3 including since admission No falls in past 3 months (0 pts) Confusion or Disorientation No (0 pts) Intoxicated or Sedated No (0 pts) Impaired Gait No (0 pts) Mobility Assist Device Used No (0 pt) Altered Elimination No (0 pt) Score/Fall Risk Level 0 - 2 = Low Risk Oriented to surroundings, Maintained a safe environment, Educated pt \T\ family on fall prevention, incl call for assistance when getting out of bed, Assessed \T\ reinforced patient's understanding of fall precautions. Abuse screen: Denies threats or abuse. Denies injuries from another. Nutritional screening: No deficits noted. Tuberculosis screening: No symptoms or risk factors identified. Assessment: 19:27 General: see triage assessment. lg3 Vital Signs: 19:21 BP 128 / 72; Pulse 84; Resp 17 S; Temp 98.7(O); Pulse Ox 95% on R/A; Weight 163.29 kg lg3 (R); Height 6 ft. 5 in. (R); Pain 0/10; 19:21 Body Mass Index 42.69 (163.29 kg, 195.58 cm) lg3 19:21 Pain Scale: Adult lg3 ED Course: 19:13 Patient arrived in ED. mr 19:17 Lakeisha R[facility]NP-C [facility]. kb 19:17 Triston Teresa MD is Attending Physician. kb 19:26 Triage completed. lg3 19:26 Arm band placed on left wrist. lg3 19:27 Patient has correct armband on for positive identification. lg3 19:27 No provider procedures requiring assistance completed. Patient did not have IV access lg3 during this emergency room visit. Administered Medications: No medications were administered Medication: 19: VIS not applicable for this client. lg3 Outcome: 19:23 Discharge ordered by . riky 19:33 Discharged to home ambulatory, lg3 19:33 Condition: stable 19:33 Discharge instructions given to patient, Instructed on discharge instructions, follow up and referral plans. Demonstrated understanding of instructions, follow-up care, 19:33 Patient left the ED. lg3 Signatures: Lakeisha Rao, [employer]STER-C [employer]IPE TESTER-CkZelda Christine, Reg Reg Jocelyne Caballero, RN RN lg3
[2024-02-29 01:25] VITALS: BP 128/72; TEMP 98.7; O2SAT 95
== END 2024-02-28 19:33 | disposition home or self-care (01) ==
LOC: ER 19:11
DX: J09.X2 Influenza due to identified novel influenza A virus with other respiratory manifestations (principal); F17.290 Nicotine dependence, other tobacco product, uncomplicated

== ENCOUNTER 2024-11-17 07:42 | Emergency (ER) | payer SELFPAY, OTHER ==
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
[2024-11-17 08:53] VITALS: TEMP 97.7
[2024-11-17 08:54] VITALS: BP 127/72; O2SAT 100
== END 2024-11-17 08:48 | disposition home or self-care (01) ==
LOC: ER 07:42
DX: S80.02XA Contusion of left knee, initial encounter (principal); V49.40XA Driver injured in collision with unspecified motor vehicles in traffic accident, initial encounter
CPT/HCPCS: 70450; 99283